=== PATIENT | female | born 1965 | race Caucasian/White ===

== ENCOUNTER → 2016-09-12 | Outpatient (CLI) | payer OTHER ==
[~2016-09-12] MED LIST: /DULO30CA OR; ACET30TAB PO; ALLE25CA OR; AMBI10TA OR; AMIT25TA PO; AMIT25TA2 OR; BUTRANS PATCH EXT; CLAR5CHW OR; DULO20CA OR; DULO20CA PO; FERR325T OR; FLAG500T PO; HYDROCODONE PO; LACT20EL PO; LASI20TA PO; LUNE2TAB OR; LYRI75CA PO; MULTIVIT PO; NUCY200T PO; OXYC-208 PO; OXYC1TAB15 PO; PENI50TA PO; PREG50CA PO; TRAM50TA2 OR; TYLENOL #3 OR; ULTRTA PO; VICO5TAB OR; hydrocodone PO; tylenol
--- NOTE | 2016-09-25 00:54 | ECWPNPC ---
PATIENT NAME: CINDI MARIE : 1965 GENDER: FEMALE VISIT DATE: 09/12/2016 DISCHARGE DATE: 09/12/16 1605 VISIT LOCKED DATE TIME: PHYSICIAN: JOLYNN ALEMAN PHYSICIAN PAGER NO: [phone] RESOURCE: JOLYNN ALEMAN REASON FOR APPOINTMENT 1. W/C BACK HISTORY OF PRESENT ILLNESS HISTORY OF PRESENT ILLNESS: HERE FOR F/U AND MANAGEMENT OF CHRONIC LBP AND BILATERAL LEG PAIN. REPORTS SIGNIFICANT WEIGHT GAIN AND SWELLING AND FEELS ITS RELATED TO LYRICA. SHE STOPPED LYRICA AND LOST 16 POUNDS FIRST WEEK AND SWELLING REDUCED IN LEGS.CONTINUES WITH 2+ LEG SWELLING.STATES PAIN HAS INCREASED DRAMATICALLY SINCE STOPPED LYRICA. RATING PAIN VAS 4/10. PAIN AGGREVATED BY PROLONGED SITTING OR STANDING.THIS PAIN IS RELATED TO WORK INJURY DOI:04-03-2003.RATING PAIN VAS 5/10.PAIN IS LOCATED ACROSS LOW BACK WITH RADIATION INTO THIGHS BILAT.DESCRIBES PAIN CONSTANT ACHING.HAD REVISION OF GASTRIC BYPASS 9 WEEKS AGO.HAD SEVERE INCREASE IN PAIN POST OP WHICH HAS SINCE RESOLVED . PAIN THE PATIENT DESCRIBES THE PAIN... THE PATIENT DESCRIBES THE PAIN... FALL RISK SCREENING: SCREENING :NO FALLS IN THE PAST YEAR CURRENT MEDICATIONS TAKING AMITRIPTYLINE HCL 25 MG TABLET 1-3 ORALLY ONCE A DAY TAKING CLARITIN 10 MG TABLET 1 TABLET ORALLY ONCE A DAY TAKING FUROSEMIDE 40 MG TABLET 1 TABLET ORALLY ONCE A DAY TAKING IRON 28 MG TABLET 1 TABLET ORALLY ONCE A DAY TAKING CYMBALTA 60 MG CAPSULE DELAYED RELEASE PARTICLES 1 CAPSULE ORALLY ONCE A DAY TAKING PERCOCET 7.5-325 MG TABLET 1 ORALLY Q4-6 MDD 5 TAKING NUCYNTA ER 150 MG TABLET EXTENDED RELEASE 12 HOUR 1 TABLET ORALLY EVERY 12 HRS MDD=2 CHRONIC PAIN TAKING OMEPRAZOLE 40 MG CAPSULE DELAYED RELEASE 1 CAP ORALLY ONCE A DAY NOT-TAKING PHENTERMINE HCL 15 MG CAPSULE 1 CAPSULE ORALLY ONCE A DAY NOT-TAKING NUCYNTA ER 150 MG TABLET EXTENDED RELEASE 12 HOUR 1 TABLET ORALLY EVERY 12 HRSMDD2 NOT-TAKING OXYCODONE-ACETAMINOPHEN 7.5-325 MG TABLET 1 ORALLY EVERY 4-6 HR PRNMDD5 NOT-TAKING LYRICA 50MG CAPSULE 1 CAPSULE ORALLY TID MDD3 NOT-TAKING HYDROCODONE-ACETAMINOPHEN 10-325 MG TABLET 1 ORALLY QIDPRN UNKNOWN LYRICA 50 MG CAPSULE 1 CAPSULE ORALLY THREE TIMES A DAY MDD3 UNKNOWN FUROSEMIDE 20 TABLET TAKE 1 TABLET BY MOUTH ONCE DAILY MEDICATION LIST REVIEWED AND RECONCILED WITH THE PATIENT PAST MEDICAL HISTORY HX OF OBESITY DEPRESSION BACK INJURY 2003 ALLERGIES LYRICA: SWELLING: SIDE EFFECTS SOCIAL HISTORY GENERAL: TOBACCO USE ARE YOU A:NONSMOKER LEARNING BARRIERS / SPECIAL NEEDS ORIENTED TO PLAN OF CARE: PATIENT, PAIN MANAGEMENT PATIENT, ORIENTED TO PLAN OF CARE: PATIENT, PAIN MANAGEMENT PATIENT. NEW PATIENT PAIN DIARY TODAY'S VISITNOTES FROM 0-10, WHAT LEVEL IS YOUR PAIN TODAY?0 PAIN CLINIC PFS, CLERGY, PUBLIC HEALTH REFERRALS PFS REFERRAL NEEDED?NO CLERGY REFERRAL NEEDED?NO PUBLIC HEALTH REFERRAL NEEDED?NO WAS THE PROVIDER NOTIFIED OF ANY PERTINENT INFO?NO PFS REFERRAL NEEDED?NO CLERGY REFERRAL NEEDED?NO PUBLIC HEALTH REFERRAL NEEDED?NO WAS THE PROVIDER NOTIFIED OF ANY PERTINENT INFO?NO REVIEW OF SYSTEMS CONSTITUTIONAL: ANY CHANGE IN YOUR MEDICAL CONDITION? NO . CHILLS NO . FEVER NO . INFECTION: DO YOU HAVE NEW INFECTIONS? NO . DO YOU HAVE HISTORY OF MRSA? NO . MUSCULOSKELETAL: ANY NEW PATTERNS OF PAIN OR NUMBNESS? NO . GASTROENTEROLOGY: ANY NEW CHANGE IN BOWEL CONTROL? NO . GENITOURINARY: ANY NEW CHANGE IN BLADDER CONTROL? NO . IS THERE A CHANCE YOU COULD BE ? NO . HEMATOLOGY/LYMPH: DO YOU TAKE ANY BLOOD THINNERS? (FOR EXAMPLE- COUMADIN, PLAVIX, AGGRENOX, PLATEL, PRADAXA, OR XARELTO) NO . WHEN WAS YOUR LAST DOSE? DATE: TIME: . NEUROLOGY: HAVE YOU FALLEN IN THE PAST 6 MONTHS? NO . ANY NEW EXTREMITY NUMBNESS OR WEAKNESS? NO . CARDIOLOGY: DO YOU HAVE A PACEMAKER OR DEFIBRILLATOR? NO . RESPIRATORY: HAVE YOU BEEN SICK IN THE PAST WEEK? NO . FEVER NO . FLU LIKE SYMPTOMS? NO . COUGH NO . INTEGUMENTARY: DO YOU HAVE ANY RASHES OR OPEN SORES? NO . ALLERGIC/IMMUNO: ARE YOU ALLERGIC TO SHELLFISH OR IV DYE? NO . ANY NEW ALLERGIES? NO . PSYCHIATRIC: DO YOU HAVE THOUGHTS OF HURTING YOURSELF OR SOMEONE ELSE? NO . ARE YOU ABUSED, NEGLECTED, OR IN AN UNSAFE ENVIRONMENT? NO . ENDOCRINOLOGY: ARE YOU DIABETIC? NO . OTHER: DO YOU NEED ANY PRESCRIPTIONS? NO . IF YES, PLEASE LIST: ____ . ANY NEW PROBLEMS WITH YOUR MEDICATIONS? NO . WHEN DID YOU LAST EAT? ____ . WHEN DID YOU LAST DRINK? ____ . WHAT DID YOU LAST DRINK? ____ . NAME OF PERSON DRIVING YOU HOME? ____ . DO YOU HAVE ANY OTHER QUESTIONS OR CONCERNS NO . REVIEWED BY: PROVIDER: JOLYNN WOOD . VITAL SIGNS WT 202 LBS, HT 62 1/2, BMI 36.35 INDEX, BP 135/61 MM HG, HR 82 /MIN, RR 16 /MIN, TEMP 97.9 F, OXYGEN SAT % 99, NA INITIALS TL 1516, REVIEWED BY: AM. EXAMINATION GENERAL EXAMINATION: LUNGS:LUNG SOUNDS ARE CLEAR. HEART:HEART RATE REGULAR. MUSCULOSKELETAL:*. MUSCULOSKELETAL:*, MUSCLE STRENGTH TESTING 5/5 BILATERAL, PALPATION: POSITIVE FOR PAIN OVER L/S SPINE. POSITIVE FOR PAIN OVER L/S PARSPINALS. ASSESSMENTS CHRONIC BILATERAL LOW BACK PAIN WITHOUT SCIATICA - M54.5 (PRIMARY) CHRONIC PRESCRIPTION OPIATE USE - Z79.891 TREATMENT CHRONIC BILATERAL LOW BACK PAIN WITHOUT SCIATICA REFILL CYMBALTA CAPSULE DELAYED RELEASE PARTICLES, 60 MG, 1 CAPSULE, ORALLY, ONCE A DAY, 30 DAY(S), 30 CAPSULE, REFILLS 5 REFILL PERCOCET TABLET, 7.5-325 MG, 1, ORALLY, Q4-6 MDD 5, 30 DAY(S), 150, REFILLS 0 REFILL AMITRIPTYLINE HCL TABLET, 25 MG, 1-3, ORALLY, ONCE A DAY, 30 DAY(S), 90, REFILLS 2 REFILL NUCYNTA ER TABLET EXTENDED RELEASE 12 HOUR, 150 MG, 1 TABLET, ORALLY, EVERY 12 HRSMDD2, 30 DAY(S), 60, REFILLS 0 NOTES: ISTOP REGISTRY REVIEWED AND DEMNOSTRATES COMPLLIANCE. BRINGS IN MEDICATIONS WHICH IS APPROPRIATE FOR WHAT WAS DISPENSED. RECENT URINE TOXICOLOGY REVIEWED. NO UNAUTHORIZED MEDICATIONS. NO ILLICIT SUBSTANCES AND PRESCRIBED MEDICATIONS WERE PRESENT. , RISKS AND BENEFITS OF NARCOTIC/OPIOD MEDICATIONS WERE REVIEWED WITH PATIENT - THIS INCLUDES BUT IS NOT LIMITED TO RISK OF DEPENDANCE/DEVELOPMENT OF ADDICTION, MOOD DISTURBANCE AND DEPRESSION, OSTEOPOROSIS, HORMONAL AND LABIDAL CHANGES, RESPIRATORY DEPRESSION AND . PATIENT IS ADVISED NOT TO DRIVE WHILE ON THESE MEDICATIONS.URINE TOX TODAY. PROCEDURE CODES FA211 ESTABILISHED PATIENT [facility] CHARGE FOLLOW UP [address] NEVES ELECTRONICALLY SIGNED BY ISRAEL BOLTON ON 09/24/2016 AT 01:25 PM EST DISCLAIMER : THIS IS A VISIT SUMMARY EXTRACTED FROM THE [employer] CHART. IT IS NOT A COPY OF THE [employer] PROGRESS NOTE. CHRISTAL
== END ==
LOC: M PAIN 15:20
PROVIDERS: ATTEND Nurse Practitioner Family
DX: Z09 Encounter for follow-up examination after completed treatment for conditions other than malignant neoplasm (principal); G89.21 Chronic pain due to trauma; M54.5 Low back pain; E66.9 Obesity, unspecified; Z68.36 Body mass index [BMI] 36.0-36.9, adult; F32.9 Major depressive disorder, single episode, unspecified; Z88.8 Allergy status to other drugs, medicaments and biological substances; Z79.891 Long term (current) use of opiate analgesic; Z79.899 Other long term (current) drug therapy

== ENCOUNTER → 2016-11-02 | Outpatient (REF) | payer OTHER | LOC: M LAB REF 16:36 | PROVIDERS: ATTEND Nurse Practitioner Family | DX: D64.9 Anemia, unspecified (principal) ==

== ENCOUNTER → 2016-12-13 | Outpatient (CLI) | payer OTHER ==
--- NOTE | 2016-12-26 00:20 | ECWPNPC ---
PATIENT NAME: CINDI MARIE : 1965 GENDER: FEMALE VISIT DATE: 12/13/2016 DISCHARGE DATE: 12/13/16 1655 VISIT LOCKED DATE TIME: PHYSICIAN: LEOPOLDO NEVES PHYSICIAN PAGER NO: [phone] RESOURCE: LEOPOLDO NEVES REASON FOR APPOINTMENT 1. LOW BACK PAIN HISTORY OF PRESENT ILLNESS HISTORY OF PRESENT ILLNESS: PAIN THE PATIENT DESCRIBES THE PAIN... 51 YEAR OLD FEMALE PATIENT WITH HISTORY OF CHRONIC LOW BACK PAIN. PATIENT DESCRIBES THAT PAIN SHARP, TENDER, SORE, AND HAVING IT ALL THE TIME WITH A PAIN SCORE OF 5/10. PATIENT WAS HURT IN A WORK RELATED INJURY WHILE WORKING AT [employer] ON 04/03/2003. PATIENT IS CURRENTLY USING NUCYNTA, CYMBALTA, OXYCODONE, AND AMITRIPTYLINE AND THE PATIENT REPORTS THAT THE MEDICATIONS KEEP HER MOBILE AND FUNCTIONAL. AT THIS TIME THE PATIENT STATES THAT SHE DOES NOT GET LONG LASTING RELIEF FROM INJECTIONS. MEDICATION MANAGEMENT AND REST AID IN PAIN RELIEF. PATIENT DENIES UNEXPLAINABLE WEIGHT LOSS, FEVER, CHILLS, NEW CHANGES ON HER URINARY OR BOWEL CONTROL. FALL RISK SCREENING: SCREENING :NO FALLS IN THE PAST YEAR CURRENT MEDICATIONS TAKING CLARITIN 10 MG TABLET 1 TABLET ORALLY ONCE A DAY TAKING FUROSEMIDE 40 MG TABLET 1 TABLET ORALLY ONCE A DAY TAKING IRON 28 MG TABLET 1 TABLET ORALLY ONCE A DAY TAKING OMEPRAZOLE 40 MG CAPSULE DELAYED RELEASE 1 CAP ORALLY ONCE A DAY TAKING CYMBALTA 60 MG CAPSULE DELAYED RELEASE PARTICLES 1 CAPSULE ORALLY ONCE A DAY TAKING AMITRIPTYLINE HCL 25 MG TABLET 1-3 ORALLY ONCE A DAY TAKING OXYCODONE-ACETAMINOPHEN 7.5-325 MG TABLET 1 ORALLY EVERY 4-6 HR PRNMDD5 TAKING NUCYNTA ER 150 MG TABLET EXTENDED RELEASE 12 HOUR 1 TABLET ORALLY EVERY 12 HRSMDD2 TAKING PATITO-E 400 MG TABLET 600MG ORALLY DAILY TAKING MAGNESIUM 100 MG TABLET 2 TABLETS WITH A MEAL ORALLY ONCE A DAY TAKING VITAMIN C 250 MG TABLET 4 TABLET ORALLY ONCE A DAY TAKING PRE-BINH 2 TABS DAILY TAKING CALCIUM 500 + D 500-125 MG-UNIT TABLET 2 TABLET WITH FOOD ORALLY ONCE A DAY TAKING VITAMIN B-12 1000 MCG TABLET SUBLINGUAL 1 TABLET UNDER THE TONGUE AND ALLOW TO DISSOLVE SUBLINGUAL ONCE A DAY NOT-TAKING PHENTERMINE HCL 15 MG CAPSULE 1 CAPSULE ORALLY ONCE A DAY NOT-TAKING LYRICA 50MG CAPSULE 1 CAPSULE ORALLY TID MDD3 NOT-TAKING HYDROCODONE-ACETAMINOPHEN 10-325 MG TABLET 1 ORALLY QIDPRN DISCONTINUED PERCOCET 7.5-325 MG TABLET 1 ORALLY Q4-6 HRS PRN MDD 5 UNKNOWN LYRICA 50 MG CAPSULE 1 CAPSULE ORALLY THREE TIMES A DAY MDD3 UNKNOWN FUROSEMIDE 20 TABLET TAKE 1 TABLET BY MOUTH ONCE DAILY MEDICATION LIST REVIEWED AND RECONCILED WITH THE PATIENT PAST MEDICAL HISTORY HX OF OBESITY DEPRESSION BACK INJURY 2003 ALLERGIES LYRICA: SWELLING: SIDE EFFECTS SURGICAL HISTORY GASTRIC BYPASS APPENDECTOMY LT KNEE X2 GASTRIC BYPASS REVISION 07/2016 FAMILY HISTORY NO FAMILY HISTORY DOCUMENTED. SOCIAL HISTORY GENERAL: PAIN CLINIC PFS, CLERGY, PUBLIC HEALTH REFERRALS CLERGY REFERRAL NEEDED?NO WAS THE PROVIDER NOTIFIED OF ANY PERTINENT INFO?NO PFS REFERRAL NEEDED?NO PUBLIC HEALTH REFERRAL NEEDED?NO PATIENT: ____. HOSPITALIZATION/MAJOR DIAGNOSTIC PROCEDURE NO HOSPITALIZATION HISTORY. REVIEW OF SYSTEMS CONSTITUTIONAL: ANY CHANGE IN YOUR MEDICAL CONDITION? NO . CHILLS NO . FEVER NO . INFECTION: DO YOU HAVE NEW INFECTIONS? NO . DO YOU HAVE HISTORY OF MRSA? NO . MUSCULOSKELETAL: ANY NEW PATTERNS OF PAIN OR NUMBNESS? NO . GASTROENTEROLOGY: ANY NEW CHANGE IN BOWEL CONTROL? NO . GENITOURINARY: ANY NEW CHANGE IN BLADDER CONTROL? NO . IS THERE A CHANCE YOU COULD BE ? NO . HEMATOLOGY/LYMPH: DO YOU TAKE ANY BLOOD THINNERS? (FOR EXAMPLE- COUMADIN, PLAVIX, AGGRENOX, PLATEL, PRADAXA, OR XARELTO) NO . WHEN WAS YOUR LAST DOSE? DATE: TIME: . NEUROLOGY: HAVE YOU FALLEN IN THE PAST 6 MONTHS? NO . ANY NEW EXTREMITY NUMBNESS OR WEAKNESS? NO . CARDIOLOGY: DO YOU HAVE A PACEMAKER OR DEFIBRILLATOR? NO . RESPIRATORY: HAVE YOU BEEN SICK IN THE PAST WEEK? NO . FEVER NO . FLU LIKE SYMPTOMS? NO . COUGH NO . INTEGUMENTARY: DO YOU HAVE ANY RASHES OR OPEN SORES? NO . ALLERGIC/IMMUNO: ARE YOU ALLERGIC TO SHELLFISH OR IV DYE? NO . ANY NEW ALLERGIES? NO . PSYCHIATRIC: DO YOU HAVE THOUGHTS OF HURTING YOURSELF OR SOMEONE ELSE? NO . ARE YOU ABUSED, NEGLECTED, OR IN AN UNSAFE ENVIRONMENT? NO . ENDOCRINOLOGY: ARE YOU DIABETIC? NO . OTHER: DO YOU NEED ANY PRESCRIPTIONS? YES NUCYNTA, OXYCODONE-ACETAMINOPHEN . IF YES, PLEASE LIST: ____ . ANY NEW PROBLEMS WITH YOUR MEDICATIONS? NO . WHEN DID YOU LAST EAT? ____ . WHEN DID YOU LAST DRINK? ____ . WHAT DID YOU LAST DRINK? ____ . NAME OF PERSON DRIVING YOU HOME? ____ . DO YOU HAVE ANY OTHER QUESTIONS OR CONCERNS NO . REVIEWED BY: PROVIDER: LEOPOLDO NEVES MD . VITAL SIGNS WT 209.4 LBS, HT 62 1/2, BMI 37.69 INDEX, BP 134/61 MM HG, HR 90 /MIN, RR 18 /MIN, TEMP 97.0 F, OXYGEN SAT % 96, NA INITIALS HS, REVIEWED BY: MLF. EXAMINATION : PATIENT IS ALERT O X 3 AND COOPERATIVE. TENDERNESS IN THE LOWER BACK AND PARASPINAL MUSCLE GROUP. ANTALGIC GAIT. MRI OF THE LUMBAR SPINE DONE ON 05/07/2012 SHOWS MUSCLE ANNULAR BULGES. ASSESSMENTS CHRONIC BILATERAL LOW BACK PAIN WITHOUT SCIATICA - M54.5 (PRIMARY) TREATMENT CHRONIC BILATERAL LOW BACK PAIN WITHOUT SCIATICA REFILL CYMBALTA CAPSULE DELAYED RELEASE PARTICLES, 60 MG, 1 CAPSULE, ORALLY, ONCE A DAY FOR PAIN, 30 DAY(S), 30, REFILLS 2 REFILL AMITRIPTYLINE HCL TABLET, 25 MG, 2, ORALLY, ONCE A DAY FOR PAIN MDD2, 30 DAY(S), 60, REFILLS 2 REFILL NUCYNTA ER TABLET EXTENDED RELEASE 12 HOUR, 150 MG, 1 TABLET (CODE D FOR CHRONIC PAIN), ORALLY FOR PAIN, EVERY 12 HRSMDD2, 90 DAYS, 180, REFILLS 0 NOTES: WE DISCUSSED SEVERAL ISSUES WITH MRS. MARIE'S PAIN MANAGEMENT CASE. AT THIS TIME THE PATIENT WILL CONTINUE WITH THE SAME MEDICATION REGIME BEFORE. PATIENT WILL USE NUCYNTA AND OXYCODONE FOR THE SOMATIC PAIN AND AMITRIPTYLINE AND CYMBALTA FOR THE NEUROPATHIC PAIN. PATIENT DENIES ABUSE OF ANY MEDICATION, DENIES USE OF ILLEGAL SUBSTANCES AND STATES THAT SHE IS ONLY USING THE MEDICATION FOR PAIN MANAGEMENT. URINE TOXICOLOGY REPORT DONE ON 09/12/16 SHOWS CONSISTENT RESULTS WITH THE PATIENT'S MEDICATION LIST. PATIENT EXPRESSED THAT EVENTUALLY SHE WOULD LIKE TO DECREASE THE AMOUNT OF MEDICATION SHE IS USING. PATIENT DOES NOT WANT INTERVENTIONS AT THIS TIME AND WOULD LIKE TO CONTINUE WITH MEDICATION MANAGEMENT. PATIENT WILL RETURN TO THE CLINIC IN 4 WEEKS TO FURTHER DISCUSS HER CASE. INSTRUCTIONS WERE GIVEN, QUESTIONS WERE ANSWERED, PATIENT REPORTS UNDERSTANDING AND AGREES WITH THE PLAN. I, RAMAN MEDINA, DOCUMENTED THE ABOVE INFORMATION ACTING A SCRIBE FOR DR. NEVES. I HAVE REVIEWED THE ABOVE DOCUMENT, WRITTEN BY RAMAN OCASIO AND I VERIFY THAT IT IS ACCURATE. OTHERS REFILL OXYCODONE-ACETAMINOPHEN TABLET, 7.5-325 MG, 1, ORALLY, EVERY 4-6 HR PRNMDD5, 30 DAY(S), 150, REFILLS 0 PROCEDURES PN WORKMANS' COMP OPINION IN YOUR OPINION, WAS THE INCIDENT THAT THE PATIENT DESCRIBED THE COMPETENT MEDICAL CAUSE OF THIS INJURY/ILLNESS? YES ARE THE PATIENT'S COMPLAINTS CONSISTENT WITH HIS/HER HISTORY OF THE INJURY/ILLNESS? YES IS THE PATIENT'S HISTORY OF THE INJURY/ILLNESS CONSISTENT WITH YOUR OBJECTIVE FINDING? YES WHAT IS THE PERCENTAGE OF TEMPORARY IMPAIRMENT? MODERATE TO MARKED = 66.7% IS THE PATIENT WORKING? NO DOCTOR ON SITE: LEOPOLDO ESPINOZA MD PROCEDURE CODES FA211 ESTABILISHED PATIENT [facility] FACILITY CHARGE G8427 DOC MEDS VERIFIED W/PT OR RE G8730 PAIN ASSESS POS TOOL F/U PLAN DOC DISPOSITION & COMMUNICATION FOLLOW UP 4 WEEKS ELECTRONICALLY SIGNED BY LEOPOLDO NEVES MD ON 12/25/2016 AT 08:31 PM EDT DISCLAIMER : THIS IS A VISIT SUMMARY EXTRACTED FROM THE [employer] CHART. IT IS NOT A COPY OF THE [employer] PROGRESS NOTE. CHRISTAL
== END ==
LOC: M PAIN 15:40
PROVIDERS: ATTEND Anesthesiology
DX: G89.29 Other chronic pain (principal); M54.5 Low back pain; F32.9 Major depressive disorder, single episode, unspecified; Z98.84 Bariatric surgery status; Z79.891 Long term (current) use of opiate analgesic; Z79.899 Other long term (current) drug therapy; Z88.8 Allergy status to other drugs, medicaments and biological substances

== ENCOUNTER → 2017-01-18 | Outpatient (CLI) | payer OTHER ==
--- NOTE | 2017-01-26 23:49 | ECWPNPC ---
PATIENT NAME: CINDI MARIE : 1965 GENDER: FEMALE VISIT DATE: 01/18/2017 DISCHARGE DATE: 01/18/17 1617 VISIT LOCKED DATE TIME: PHYSICIAN: LEOPOLDO NEVES PHYSICIAN PAGER NO: [phone] RESOURCE: LEOPOLDO NEVES REASON FOR APPOINTMENT 1. W/C LOW BACK PAIN HISTORY OF PRESENT ILLNESS HISTORY OF PRESENT ILLNESS: PAIN THE PATIENT DESCRIBES THE PAIN... 51 YEAR OLD FEMALE PATIENT WITH HISTORY OF CHRONIC LOW BACK PAIN. PATIENT DESCRIBES THAT PAIN SHARP, TENDER, SORE, AND HAVING IT ALL THE TIME WITH A PAIN SCORE OF 5/10. PATIENT WAS HURT IN A WORK RELATED INJURY WHILE WORKING AT [employer] ON 04/03/2003. PATIENT IS CURRENTLY USING NUCYNTA, CYMBALTA, OXYCODONE, AND AMITRIPTYLINE AND THE PATIENT REPORTS THAT THE MEDICATIONS KEEP HER MOBILE AND FUNCTIONAL. PATIENT REPORTS THE PAIN FLUCTUATING A LOT SINCE THE LAST VISIT AND HAS HAD TO MISS WORK DUE TO THE PAIN. MEDICATION MANAGEMENT AND REST AID IN PAIN RELIEF. PATIENT DENIES UNEXPLAINABLE WEIGHT LOSS, FEVER, CHILLS, NEW CHANGES ON HER URINARY OR BOWEL CONTROL. FALL RISK SCREENING: SCREENING :NO FALLS IN THE PAST YEAR CURRENT MEDICATIONS TAKING CYMBALTA 60 MG CAPSULE DELAYED RELEASE PARTICLES 1 CAPSULE ORALLY ONCE A DAY FOR PAIN TAKING AMITRIPTYLINE HCL 25 MG TABLET 2 ORALLY ONCE A DAY FOR PAIN MDD2 TAKING NUCYNTA ER 150 MG TABLET EXTENDED RELEASE 12 HOUR 1 TABLET (CODE D FOR CHRONIC PAIN) ORALLY FOR PAIN EVERY 12 HRSMDD2 TAKING OXYCODONE-ACETAMINOPHEN 7.5-325 MG TABLET 1 ORALLY EVERY 4-6 HR PRNMDD5 TAKING CLARITIN 10 MG TABLET 1 TABLET ORALLY ONCE A DAY TAKING FUROSEMIDE 40 MG TABLET 1 TABLET ORALLY ONCE A DAY TAKING IRON 28 MG TABLET 1 TABLET ORALLY ONCE A DAY TAKING OMEPRAZOLE 40 MG CAPSULE DELAYED RELEASE 1 CAP ORALLY ONCE A DAY TAKING PATITO-E 400 MG TABLET 600MG ORALLY DAILY TAKING MAGNESIUM 100 MG TABLET 2 TABLETS WITH A MEAL ORALLY ONCE A DAY TAKING VITAMIN C 250 MG TABLET 4 TABLET ORALLY ONCE A DAY TAKING PRE-BINH 2 TABS DAILY TAKING CALCIUM 500 + D 500-125 MG-UNIT TABLET 2 TABLET WITH FOOD ORALLY ONCE A DAY TAKING VITAMIN B-12 1000 MCG TABLET SUBLINGUAL 1 TABLET UNDER THE TONGUE AND ALLOW TO DISSOLVE SUBLINGUAL ONCE A DAY DISCONTINUED PHENTERMINE HCL 15 MG CAPSULE 1 CAPSULE ORALLY ONCE A DAY DISCONTINUED LYRICA 50MG CAPSULE 1 CAPSULE ORALLY TID MDD3 DISCONTINUED HYDROCODONE-ACETAMINOPHEN 10-325 MG TABLET 1 ORALLY QIDPRN DISCONTINUED LYRICA 50 MG CAPSULE 1 CAPSULE ORALLY THREE TIMES A DAY MDD3 DISCONTINUED FUROSEMIDE 20 TABLET TAKE 1 TABLET BY MOUTH ONCE DAILY MEDICATION LIST REVIEWED AND RECONCILED WITH THE PATIENT PAST MEDICAL HISTORY HX OF OBESITY DEPRESSION BACK INJURY 2003 ALLERGIES LYRICA: SWELLING: SIDE EFFECTS SURGICAL HISTORY GASTRIC BYPASS APPENDECTOMY LT KNEE X2 GASTRIC BYPASS REVISION 07/2016 FAMILY HISTORY NO FAMILY HISTORY DOCUMENTED. SOCIAL HISTORY GENERAL: PAIN CLINIC PFS, CLERGY, PUBLIC HEALTH REFERRALS CLERGY REFERRAL NEEDED?NO WAS THE PROVIDER NOTIFIED OF ANY PERTINENT INFO?NO PFS REFERRAL NEEDED?NO PUBLIC HEALTH REFERRAL NEEDED?NO PATIENT: ____. HOSPITALIZATION/MAJOR DIAGNOSTIC PROCEDURE NO HOSPITALIZATION HISTORY. REVIEW OF SYSTEMS CONSTITUTIONAL: ANY CHANGE IN YOUR MEDICAL CONDITION? NO . CHILLS NO . FEVER NO . INFECTION: DO YOU HAVE NEW INFECTIONS? NO . DO YOU HAVE HISTORY OF MRSA? NO . MUSCULOSKELETAL: ANY NEW PATTERNS OF PAIN OR NUMBNESS? NO . GASTROENTEROLOGY: ANY NEW CHANGE IN BOWEL CONTROL? NO . GENITOURINARY: ANY NEW CHANGE IN BLADDER CONTROL? NO . IS THERE A CHANCE YOU COULD BE ? NO . HEMATOLOGY/LYMPH: DO YOU TAKE ANY BLOOD THINNERS? (FOR EXAMPLE- COUMADIN, PLAVIX, AGGRENOX, PLATEL, PRADAXA, OR XARELTO) NO . WHEN WAS YOUR LAST DOSE? DATE: TIME: . NEUROLOGY: HAVE YOU FALLEN IN THE PAST 6 MONTHS? NO . ANY NEW EXTREMITY NUMBNESS OR WEAKNESS? NO . CARDIOLOGY: DO YOU HAVE A PACEMAKER OR DEFIBRILLATOR? NO . RESPIRATORY: HAVE YOU BEEN SICK IN THE PAST WEEK? NO . FEVER NO . FLU LIKE SYMPTOMS? NO . COUGH NO . INTEGUMENTARY: DO YOU HAVE ANY RASHES OR OPEN SORES? NO . ALLERGIC/IMMUNO: ARE YOU ALLERGIC TO SHELLFISH OR IV DYE? NO . ANY NEW ALLERGIES? NO . PSYCHIATRIC: DO YOU HAVE THOUGHTS OF HURTING YOURSELF OR SOMEONE ELSE? NO . ARE YOU ABUSED, NEGLECTED, OR IN AN UNSAFE ENVIRONMENT? NO . ENDOCRINOLOGY: ARE YOU DIABETIC? NO . OTHER: DO YOU NEED ANY PRESCRIPTIONS? YES . IF YES, PLEASE LIST: OXYCODONE 7.5MG . ANY NEW PROBLEMS WITH YOUR MEDICATIONS? NO . WHEN DID YOU LAST EAT? ____ . WHEN DID YOU LAST DRINK? ____ . WHAT DID YOU LAST DRINK? ____ . NAME OF PERSON DRIVING YOU HOME? ____ . DO YOU HAVE ANY OTHER QUESTIONS OR CONCERNS YES, ANKLES ARE STILL SWELLING A LOT. . REVIEWED BY: PROVIDER: LEOPOLDO NEVES MD . VITAL SIGNS WT 208.2 LBS, HT 62 1/2, BMI 37.47 INDEX, BP 143/60 MM HG, HR 89 /MIN, RR 16 /MIN, TEMP 98.4 F, OXYGEN SAT % 97%, NA INITIALS TL 1505, REVIEWED BY: CM. EXAMINATION : PATIENT IS ALERT O X 3 AND COOPERATIVE. TENDERNESS IN THE LOWER BACK AND PARASPINAL MUSCLE GROUP. ANTALGIC GAIT. MRI OF THE LUMBAR SPINE DONE ON 05/07/2012 SHOWS MUSCLE ANNULAR BULGES AND FACET HYPERTROPHY. PATIENT HAS DIFFICULTIES STRAIGHTENING LEGS WHILE IN THE SUPINE POSITION. ASSESSMENTS CHRONIC BILATERAL LOW BACK PAIN WITHOUT SCIATICA - M54.5 (PRIMARY) TREATMENT CHRONIC BILATERAL LOW BACK PAIN WITHOUT SCIATICA REFILL NUCYNTA ER TABLET EXTENDED RELEASE 12 HOUR, 150 MG, 1 TABLET (CODE D FOR CHRONIC PAIN), ORALLY FOR PAIN, EVERY 12 HRSMDD2, 90 DAYS, 180, REFILLS 0 REFILL AMITRIPTYLINE HCL TABLET, 25 MG, 2, ORALLY, ONCE A DAY FOR PAIN MDD2, 30 DAY(S), 60, REFILLS 2 REFILL CYMBALTA CAPSULE DELAYED RELEASE PARTICLES, 60 MG, 1 CAPSULE, ORALLY, ONCE A DAY FOR PAIN, 30 DAY(S), 30, REFILLS 2 NOTES: FACET JOINT INJECTION MATERIAL WAS PRINTED. CLINICAL NOTES: WE DISCUSSED SEVERAL ISSUES WITH MRS. MARIE'S PAIN MANAGEMENT CASE. AT THIS TIME I WOULD LIKE THE PATIENT TO CONTINUE USING THE NUCYNTA AND OXYCODONE FOR THE SOMATIC PAIN, CYMBALTA FOR THE NEUROPATHIC PAIN, AND THE AMITRIPTYLINE FOR THE NEUROPATHIC PAIN. I WOULD ALSO LIKE THE PATIENT TO START USING GABAPENTIN 300 MG AT NIGHT AND TRY TO NOT USE THE NUCYNTA. PATIENT WAS ADVISED TO STOP THE MEDICATION IF SHE HAS ANY ADVERSE SIDE EFFECTS. PATIENT DENIES ABUSE TO ANY MEDICATION, DENIES USE OF ILLEGAL SUBSTANCES, AND STATES THAT SHE IS ONLY USING THE MEDICATION FOR PAIN MANAGEMENT. URINE TOXICOLOGY REPORT DONE ON 09/12/16 SHOWS CONSISTENT RESULTS WIT THE PATIENT MEDICATION LIST. WE DISCUSSED SEVERAL INTERVENTIONS THAT MAY AID THE PATIENT. PATIENT REPORTS THAT INTERVENTIONS HAVE NOT WORKED, DUE TO THE LAST INJECTION BEING OVER A YEAR AGO I WOULD LIKE TO MOVE FORWARD WITH A LUMBAR FACET BLOCK. WE DISCUSSED T HE RISKS, BENENFITS, AND ALTNERATIVES OF THE INJECTION AND THE PATIENT WOULD LIKE TO PROCEED AT THIS TIME. INSTRUCTIONS WERE GIVEN, QUESTIONS WERE ANSWERED, PATIENT REPORTS UNDERSTANDING AND AGREES WITH THE PLAN. I, RAMAN MEDINA, DOCUMENTED THE ABOVE INFORMATION ACTING A SCRIBE FOR DR. NEVES. I HAVE REVIEWED THE ABOVE DOCUMENT, WRITTEN BY RAMAN OCASIO AND I VERIFY THAT IT IS ACCURATE. OTHERS REFILL OXYCODONE-ACETAMINOPHEN TABLET, 7.5-325 MG, 1, ORALLY, EVERY 4-6 HR PRNMDD5, 30 DAY(S), 150, REFILLS 0 START GABAPENTIN CAPSULE, 300 MG, 1 CAPSULE, ORALLY, BEFORE BEDTIME FOR PAIN, 30 DAY(S), 30, REFILLS 2 PROCEDURE CODES FA211 ESTABILISHED PATIENT [facility] FACILITY CHARGE G8427 DOC MEDS VERIFIED W/PT OR RE G4430 PAIN ASSESS POS TOOL F/U PLAN DOC DISPOSITION & COMMUNICATION FOLLOW UP LFBT AFTER APPROVAL ELECTRONICALLY SIGNED BY LEOPOLDO NEVES MD ON 01/26/2017 AT 07:12 PM EDT DISCLAIMER : THIS IS A VISIT SUMMARY EXTRACTED FROM THE [employer] CHART. IT IS NOT A COPY OF THE [employer] PROGRESS NOTE. YONATAND
== END | disposition home or self-care (01) ==
LOC: M PAIN 15:00
PROVIDERS: ATTEND Anesthesiology
DX: G89.29 Other chronic pain (principal); M54.5 Low back pain; F33.9 Major depressive disorder, recurrent, unspecified; Z98.84 Bariatric surgery status; Z79.899 Other long term (current) drug therapy; Z88.8 Allergy status to other drugs, medicaments and biological substances

== ENCOUNTER → 2017-02-22 | Outpatient (CLI) | payer OTHER ==
--- NOTE | 2017-03-02 00:30 | ECWPNPC ---
PATIENT NAME: CINDI MARIE : 1965 GENDER: FEMALE VISIT DATE: 02/22/2017 DISCHARGE DATE: 02/22/17 1641 VISIT LOCKED DATE TIME: PHYSICIAN: LEOPOLDO NEVES PHYSICIAN PAGER NO: [phone] RESOURCE: LEOPOLDO NEVES REASON FOR APPOINTMENT 1. W/C LOW BACK PAIN HISTORY OF PRESENT ILLNESS HISTORY OF PRESENT ILLNESS: PAIN THE PATIENT DESCRIBES THE PAIN... 51 YEAR OLD FEMALE PATIENT WITH HISTORY OF CHRONIC LOW BACK PAIN. PATIENT DESCRIBES THAT PAIN SHARP, TENDER, SORE, AND HAVING IT ALL THE TIME WITH A PAIN SCORE OF 5/10. PATIENT WAS HURT IN A WORK RELATED INJURY WHILE WORKING AT [employer] ON 04/03/2003. PATIENT IS CURRENTLY USING NUCYNTA, CYMBALTA, OXYCODONE, AND AMITRIPTYLINE AND THE PATIENT REPORTS THAT THE MEDICATIONS KEEP HER MOBILE AND FUNCTIONAL. PATIENT REPORTS HAVE MORE BACK SPASMS RECENTLY AND IS UNSURE WHY. MEDICATION MANAGEMENT AND REST AID IN PAIN RELIEF. PATIENT DENIES UNEXPLAINABLE WEIGHT LOSS, FEVER, CHILLS, NEW CHANGES ON HER URINARY OR BOWEL CONTROL. FALL RISK SCREENING: SCREENING :NO FALLS IN THE PAST YEAR CURRENT MEDICATIONS TAKING GABAPENTIN 300 MG CAPSULE 1 CAPSULE ORALLY BEFORE BEDTIME FOR PAIN TAKING NUCYNTA ER 150 MG TABLET EXTENDED RELEASE 12 HOUR 1 TABLET (CODE D FOR CHRONIC PAIN) ORALLY FOR PAIN EVERY 12 HRSMDD2 TAKING AMITRIPTYLINE HCL 25 MG TABLET 2 ORALLY ONCE A DAY FOR PAIN MDD2 TAKING CYMBALTA 60 MG CAPSULE DELAYED RELEASE PARTICLES 1 CAPSULE ORALLY ONCE A DAY FOR PAIN TAKING CLARITIN 10 MG TABLET 1 TABLET ORALLY ONCE A DAY TAKING FUROSEMIDE 40 MG TABLET 1 TABLET ORALLY ONCE A DAY TAKING IRON 28 MG TABLET 1 TABLET ORALLY ONCE A DAY TAKING OMEPRAZOLE 40 MG CAPSULE DELAYED RELEASE 1 CAP ORALLY ONCE A DAY TAKING PATITO-E 400 MG TABLET 600MG ORALLY DAILY TAKING MAGNESIUM 100 MG TABLET 2 TABLETS WITH A MEAL ORALLY ONCE A DAY TAKING VITAMIN C 250 MG TABLET 4 TABLET ORALLY ONCE A DAY TAKING PRE- 2 TABS DAILY TAKING CALCIUM 500 + D 500-125 MG-UNIT TABLET 2 TABLET WITH FOOD ORALLY ONCE A DAY TAKING VITAMIN B-12 1000 MCG TABLET SUBLINGUAL 1 TABLET UNDER THE TONGUE AND ALLOW TO DISSOLVE SUBLINGUAL ONCE A DAY TAKING CYCLOBENZAPRINE HCL 10 MG TABLET 1 TABLET NEEDED ORALLY THREE TIMES A DAY FOR SPASMS AND PAIN MDD3 TAKING OXYCODONE-ACETAMINOPHEN 7.5-325 MG TABLET 1 ORALLY EVERY 4-6 HR PRNMDD5 PAST MEDICAL HISTORY HX OF OBESITY DEPRESSION BACK INJURY 2003 ALLERGIES LYRICA: SWELLING: SIDE EFFECTS REVIEW OF SYSTEMS REVIEWED BY: PROVIDER: . CONSTITUTIONAL: ANY CHANGE IN YOUR MEDICAL CONDITION? NO . CHILLS NO . FEVER NO . INFECTION: DO YOU HAVE NEW INFECTIONS? NO . DO YOU HAVE HISTORY OF MRSA? NO . MUSCULOSKELETAL: ANY NEW PATTERNS OF PAIN OR NUMBNESS? NO . GASTROENTEROLOGY: ANY NEW CHANGE IN BOWEL CONTROL? NO . GENITOURINARY: ANY NEW CHANGE IN BLADDER CONTROL? NO . IS THERE A CHANCE YOU COULD BE ? NO . HEMATOLOGY/LYMPH: DO YOU TAKE ANY BLOOD THINNERS? (FOR EXAMPLE- COUMADIN, PLAVIX, AGGRENOX, PLATEL, PRADAXA, OR XARELTO) NO . WHEN WAS YOUR LAST DOSE? DATE: TIME: . NEUROLOGY: HAVE YOU FALLEN IN THE PAST 6 MONTHS? NO . ANY NEW EXTREMITY NUMBNESS OR WEAKNESS? NO . CARDIOLOGY: DO YOU HAVE A PACEMAKER OR DEFIBRILLATOR? NO . RESPIRATORY: HAVE YOU BEEN SICK IN THE PAST WEEK? NO . FEVER NO . FLU LIKE SYMPTOMS? NO . COUGH NO . INTEGUMENTARY: DO YOU HAVE ANY RASHES OR OPEN SORES? NO . ALLERGIC/IMMUNO: ARE YOU ALLERGIC TO SHELLFISH OR IV DYE? NO . ANY NEW ALLERGIES? NO . PSYCHIATRIC: DO YOU HAVE THOUGHTS OF HURTING YOURSELF OR SOMEONE ELSE? NO . ARE YOU ABUSED, NEGLECTED, OR IN AN UNSAFE ENVIRONMENT? NO . ENDOCRINOLOGY: ARE YOU DIABETIC? NO . OTHER: DO YOU NEED ANY PRESCRIPTIONS? YES . IF YES, PLEASE LIST: CYCLOBENZAPRINE, OXYCODONE WITH ACETAMINOPHEN . ANY NEW PROBLEMS WITH YOUR MEDICATIONS? NO . WHEN DID YOU LAST EAT? ____ . WHEN DID YOU LAST DRINK? ____ . WHAT DID YOU LAST DRINK? ____ . NAME OF PERSON DRIVING YOU HOME? ____ . DO YOU HAVE ANY OTHER QUESTIONS OR CONCERNS NO . VITAL SIGNS WT 205.0 LBS, HT 62 1/2, BMI 36.89 INDEX, BP 127/65 MM HG, HR 94 /MIN, RR 16 /MIN, TEMP 97.8 F, OXYGEN SAT % 96%, NA INITIALS TL 1511, REVIEWED BY: NL. EXAMINATION : PATIENT IS ALERT O X 3 AND COOPERATIVE. TENDERNESS IN THE LOWER BACK AND PARASPINAL MUSCLE GROUP. ANTALGIC GAIT. MRI OF THE LUMBAR SPINE DONE ON 05/07/2012 SHOWS MUSCLE ANNULAR BULGES AND FACET HYPERTROPHY. PATIENT HAS DIFFICULTIES STRAIGHTENING LEGS WHILE IN THE SUPINE POSITION. ASSESSMENTS CHRONIC BILATERAL LOW BACK PAIN WITHOUT SCIATICA - M54.5 (PRIMARY) TREATMENT CHRONIC BILATERAL LOW BACK PAIN WITHOUT SCIATICA REFILL NUCYNTA ER TABLET EXTENDED RELEASE 12 HOUR, 150 MG, 1 TABLET (CODE D FOR CHRONIC PAIN), ORALLY FOR PAIN, EVERY 12 HRSMDD2, 90 DAYS, 180, REFILLS 0 REFILL AMITRIPTYLINE HCL TABLET, 25 MG, 2, ORALLY, ONCE A DAY FOR PAIN MDD2, 30 DAY(S), 60, REFILLS 2 REFILL CYMBALTA CAPSULE DELAYED RELEASE PARTICLES, 60 MG, 1 CAPSULE, ORALLY, ONCE A DAY FOR PAIN, 30 DAY(S), 30, REFILLS 2 NOTES: WE DISCUSSED SEVERAL ISSUES WITH MRS. MARIE'S PAIN MANAGEMENT CASE. AT THIS TIME I WOULD LIKE THE PATIENT TO CONTINUE USING THE NUCYNTA AND OXYCODONE FOR THE SOMATIC PAIN, CYMBALTA FOR THE NEUROPATHIC PAIN, AND THE AMITRIPTYLINE FOR THE NEUROPATHIC PAIN. PATIENT DENIES ABUSE TO ANY MEDICATION, DENIES USE OF ILLEGAL SUBSTANCES, AND STATES THAT SHE IS ONLY USING THE MEDICATION FOR PAIN MANAGEMENT. URINE TOXICOLOGY REPORT DONE ON 09/12/16 SHOWS CONSISTENT RESULTS WIT THE PATIENT MEDICATION LIST. WE DISCUSSED SEVERAL INTERVENTIONS THAT MAY AID THE PATIENT. I WOULD LIKE TO REQUEST AUTHORIZATION FOR A LUMBAR FACET BLOCK AND BOOK AFTER APPROVAL. WE DISCUSSED THE RISKS, BENENFITS, AND ALTNERATIVES OF THE INJECTION AND THE PATIENT WOULD LIKE TO PROCEED AT THIS TIME. INSTRUCTIONS WERE GIVEN, QUESTIONS WERE ANSWERED, PATIENT REPORTS UNDERSTANDING AND AGREES WITH THE PLAN. I, RAMAN MEDINA, DOCUMENTED THE ABOVE INFORMATION ACTING A SCRIBE FOR DR. NEVES. I HAVE REVIEWED THE ABOVE DOCUMENT, WRITTEN BY RAMAN OCASIO AND I VERIFY THAT IT IS ACCURATE. OTHERS REFILL GABAPENTIN CAPSULE, 300 MG, 1 CAPSULE, ORALLY, BEFORE BEDTIME FOR PAIN, 30 DAY(S), 30, REFILLS 2 REFILL CYCLOBENZAPRINE HCL TABLET, 10 MG, 1 TABLET NEEDED, ORALLY, THREE TIMES A DAY FOR SPASMS AND PAIN MDD3, 7 DAYS, 20, REFILLS 1 REFILL OXYCODONE-ACETAMINOPHEN TABLET, 7.5-325 MG, 1, ORALLY, EVERY 4-6 HR PRNMDD5, 30 DAY(S), 150, REFILLS 0 PROCEDURES PN WORKMANS' COMP OPINION IN YOUR OPINION, WAS THE INCIDENT THAT THE PATIENT DESCRIBED THE COMPETENT MEDICAL CAUSE OF THIS INJURY/ILLNESS? YES ARE THE PATIENT'S COMPLAINTS CONSISTENT WITH HIS/HER HISTORY OF THE INJURY/ILLNESS? YES IS THE PATIENT'S HISTORY OF THE INJURY/ILLNESS CONSISTENT WITH YOUR OBJECTIVE FINDING? YES WHAT IS THE PERCENTAGE OF TEMPORARY IMPAIRMENT? MODERATE TO MARKED = 66.7% IS THE PATIENT WORKING? NO DOCTOR ON SITE: LEOPOLDO ESPINOZA MD PREVENTIVE MEDICINE GAVE INFO ON PREPROCEDURE CARE AND PT EXPRESSED UNDERSTANDING OF THIS. PROCEDURE CODES FA211 ESTABILISHED PATIENT [facility] FACILITY CHARGE G8427 DOC MEDS VERIFIED W/PT OR RE G8730 PAIN ASSESS POS TOOL F/U PLAN DOC DISPOSITION & COMMUNICATION FOLLOW UP LFBT AFTER APPROVAL ELECTRONICALLY SIGNED BY LEOPOLDO NEVES MD ON 03/01/2017 AT 08:29 AM EDT DISCLAIMER : THIS IS A VISIT SUMMARY EXTRACTED FROM THE [employer] CHART. IT IS NOT A COPY OF THE [employer] PROGRESS NOTE. YONATAND
== END ==
LOC: M PAIN 15:00
PROVIDERS: ATTEND Anesthesiology
DX: G89.29 Other chronic pain (principal); M54.5 Low back pain; F32.9 Major depressive disorder, single episode, unspecified; Z88.8 Allergy status to other drugs, medicaments and biological substances; Z79.891 Long term (current) use of opiate analgesic; Z79.899 Other long term (current) drug therapy; E66.9 Obesity, unspecified; Z68.36 Body mass index [BMI] 36.0-36.9, adult

== ENCOUNTER 2017-04-01 16:24 | Inpatient (IN) | payer OTHER ==
[~2017-04-01] VITALS: Ht 154.9 cm; Wt 96.1 kg
[2017-04-01] MEDS ORDERED: NEUR300C PO (16:42)
[2017-04-01 17:38] LABS: BASO # 0.1 K/mm3 (0.0-0.2); BASO % 0.6 % (0.0-1.0); EOS # 0.2 K/mm3 (0.0-0.50); EOS % 1.8 % (0.0-3.0); LARGE UNSTAINED CELL # 0.2 K/mm3 (0.0-0.4); LARGE UNSTAINED CELL % 1.9 % (0.0-4.0); LYMPH # 3.8 K/mm3 (1.5-4.5); LYMPH % 32.8 % (24.0-44.0); MEAN CORPUSCULAR HEMOGLOBIN 27.1 pg (27.0-33.0); MEAN CORPUSCULAR HGB CONC 32.3 g/dl (32.0-36.5); MEAN CORPUSCULAR VOLUME 84.1 fl (80.0-96.0); MONO # 0.6 K/mm3 (0.0-0.8); MONO % 5.7 % (0.0-5.0); NEUTROPHILS # 6.2 K/mm3 (1.8-7.7); NEUTROPHILS % 57.2 % (36.0-66.0); PLATELET COUNT, AUTOMATED 361 k/mm3 (150-450); RED CELL DISTRIBUTION WIDTH 14.2 % (11.5-14.5); WHITE BLOOD COUNT 10.8 K/mm3 (4.0-10.0)
[2017-04-01 17:58] LABS: ALBUMIN 3.7 GM/DL (3.2-5.2); ALBUMIN/GLOBULIN RATIO 1.06 (1.00-1.93); ALKALINE PHOSPHATASE 276 U/L (45-117); ALT/SGPT 90 U/L (12-78); ANION GAP 6 MEQ/L (8-16); AST/SGOT 57 U/L (15-37); BILIRUBIN,DIRECT < 0.1 MG/DL (0.0-0.2); BILIRUBIN,TOTAL 0.2 MG/DL (0.2-1.0); BLOOD UREA NITROGEN 9 MG/DL (7-18); CALCIUM LEVEL 8.7 MG/DL (8.5-10.1); CARBON DIOXIDE LEVEL 29 MEQ/L (21-32); CHLORIDE LEVEL 100 MEQ/L (98-107); CREATININE FOR GFR 0.79 MG/DL (0.55-1.02); GLOMERULAR FILTRATION RATE > 60.0 (>51); GLUCOSE, FASTING 111 MG/DL (70-105); POTASSIUM SERUM 3.9 MEQ/L (3.5-5.1); SODIUM LEVEL 135 MEQ/L (136-145); TOTAL PROTEIN 7.2 GM/DL (6.4-8.2)
[2017-04-01] MEDS ORDERED: GASTROGRAFIN SOLUTION 30ML (Q9963) PO ONE ×2 (18:30→19:00)
--- NOTE | 2017-04-01 18:31 | REP ---
REASON: Cough, dyspnea. COMPARISON: 06/21/2009. There is a minimal right CP angle opacity. The lung nolasco are otherwise clear and unchanged. The heart is not enlarged and the osseous structure is stable and intact. IMPRESSION: Minimal right CP angle opacity possibly reflecting subsegmental atelectatic change. Correlate clinically and obtain followup if necessary. Signed by Marc Del Rio DO 04/01/2017 07:10 P
[2017-04-01] MEDS ORDERED: ONDANSETRON 4MG/2ML VIAL (J2405) IV ONE (18:45)
[2017-04-01] MEDS ORDERED: MORPHINE 4 MG/ML 1ML SYRINGE IV ONE (18:45)
[2017-04-01] MEDS ORDERED: ISOVUE-370 76% 100ML VIAL (Q9967) As Ordered ONE (19:40)
--- NOTE | 2017-04-01 20:40 | REPUSA ---
CT of the abdomen and pelvis with contrast Clinical statement: Pain. Technique: Multiple axial CT images were obtained from the base of the lungs to the floor of the pelv is utilizing 5 mm axial slices After administration of oral and non-ionic intravenous contrast. Nhung nal and sagittal reconstructions were also obtained. Comparison: None. Findings: Chest: The visualized lung bases are clear. Abdomen: The kidneys are normal in size bilaterally. There is no evidence of hydronephrosis or nephro lithiasis.. The liver is enlarged, measuring 26.2 cm in longest diameter. There is diffuse low atten uation throughout the hepatic parenchyma. No focal hepatic masses are seen. The common bile duct is d ilated measuring up to 11 mm. There is mild dilatation of the pancreatic duct as well. No obstructing mass or stone is seen within the common bile duct. The spleen, pancreas, gallbladder and adrenal gla nds are unremarkable. The aorta demonstrates normal caliber and contour. There is no abdominal lympha denopathy or ascites. Pelvis: The bowel is unremarkable, with no obstructive or inflammatory changes. The urinary bladder i s within normal limits. There is no pelvic lymphadenopathy or ascites. There is a solid low attenuati on lesion in the left uterine fundus, measuring 3.5 x 2.6 cm. The other pelvic structures appear unre markable. Bones: There are no suspicious osseous abnormalities seen. Impression: 1. Severe hepatomegaly. Diffuse fatty infiltration of the liver. 2. The gallbladderappears unremarkable. However, there is an extrahepatic biliary and pancreatic duct al dilatation. No discrete evidence of an obstructing stone or mass is identified at this time. ERCP or MRCP Would be helpful if there is continued clinical concern. 3. No obstructive or inflammatory bowel changes. 4. Uterine fundal fibroid.
[2017-04-01] MEDS: OMEPRAZOLE 20 MG CAP PO SCH (21:00)
--- NOTE | 2017-04-01 21:50 | REPUSA ---
Clinical history: Right upper quadrant pain. Findings: The pancreas and liver limited in evaluation because of overlying bowel gas. Diffuse incre ased echogenicity of the liver is seen. The gallbladder contains echogenic non-shadowing material. Th ere is no gallbladder wall thickening. The common bile duct is dilated, measuring 9 mm.. The right ki dney measures 10.1 cm in length and is unremarkable. There is no ascites. Impression: 1. Gallbladder sludge. No evidence of gallstones or acute cholecystitis. 2. Mild extrahepatic Biliary ductal dilatation. There is further clinical concern, MRCP could be pe rformed. 3. Fatty infiltration of the liver.
[2017-04-01] MEDS ORDERED: DULO1CAP3 PO (23:02)
[2017-04-01] MEDS ORDERED: CYCL10TA PO (23:02)
[2017-04-01] MEDS ORDERED: FURO40TA2 PO (23:02)
[2017-04-01] MEDS ORDERED: NUCY150T PO (23:02)
[2017-04-01] MEDS ORDERED: LORA10TA2 PO (23:02)
[2017-04-01] MEDS ORDERED: OMEP20CA3 PO (23:02)
[2017-04-01] MEDS ORDERED: MAALOX 30 ML SUSP *UDC PO PRN (23:45)
[2017-04-01] MEDS ORDERED: ONDANSETRON 4MG/2ML VIAL (J2405) IV PRN (23:45)
[2017-04-01] MEDS ORDERED: MULTIVITAMINS/MINERALS THERAP 1 TAB PO ONE (23:45)
[2017-04-01] MEDS ORDERED: CYCLOBENZAPRINE 10 MG TAB PO PRN (23:45)
[2017-04-01] MEDS: oxyCODONE 5MG TAB PO PRN (23:52)
[2017-04-01 23:59] LABS: INR 0.96
[2017-04-02 00:07] LABS: GAMMA GLUTAMYLTRANSPEPTIDASE 137 U/L (5-55)
[2017-04-02 00:40] VITALS: BP 121/63
[2017-04-02] MEDS: DULoxetine 30 MG CAP (CYMBALTA) PO SCH ×2 (01:09→21:19)
[2017-04-02] MEDS: GABAPENTIN 300 MG CAP PO SCH ×2 (01:10→21:20)
[2017-04-02] MEDS: NS 1,000 ML IV SCH ×3 (01:10→16:25)
[2017-04-02] MEDS: HEPARIN SOD (PORCINE) 5000 UNITS/ML VIAL SC SCH ×3 (01:10→21:19)
[2017-04-02] MEDS: AMITRIPTYLINE 50 MG TAB PO SCH ×2 (01:31→21:20)
[2017-04-02] MEDS: MORPHINE 2 MG/ML 1ML SYRINGE IV PRN ×4 (01:40→21:18)
[2017-04-02 04:00] VITALS: BP 135/62
--- NOTE | 2017-04-02 05:37 | HPE ---
DATE OF ADMISSION: 04/01/2017 PRIMARY CARE PROVIDER: [facility] CHIEF COMPLAINT: Epigastric pain, abdominal bloating. HISTORY OF PRESENT ILLNESS: This is a 51-year-old female patient with underlying medical history of gastric bypass, section, appendectomy, obesity, depression, chronic back pain, fibromyalgia, presented to the hospital with a one-day history of epigastric abdominal pain associated with shortness of breath, radiating to her back, constant, dull sensation, worse with respiration, no relieving factor, associated with bloating worsened with eating, improved with morphine, /10. Denies any fever, chills, nausea, vomiting, diarrhea. No previous episodes. 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 Denies any chest pain, pressure, discomfort, palpitations. In the emergency room, the patient was evaluated. Laboratory shows transaminitis. CT scan and ultrasound urinary bladder have been done. Subsequently patient is admitted. ALLERGIES: BANANA and SHELLFISH. PAST MEDICAL HISTORY: 1. History of obesity. 2. Depression. 3. Back pain. 4. Fibromyalgia. PAST SURGICAL HISTORY: 1. Gastric bypass. 2. section. 3. Appendectomy. 4. Left knee surgery twice. 5. Cataract surgery. 6. Revision of gastric bypass 07/2016. FAMILY HISTORY: Father had myocardial infarction at age 56. Mother with stroke at age 48. SOCIAL HISTORY: The patient never smoke. Drinks caffeine. Denies alcohol drinking. REVIEW OF SYSTEMS: The patient reported epigastric burning pain that is dull, associated with shortness of breath, worsened with eating. Reported poor appetite. All other review of systems negative. HOME MEDICATIONS: - amitriptyline 50 mg by mouth at bedtime - cyclobenzaprine 10 mg by mouth three times a day as needed - duloxetine 60 mg by mouth at bedtime - Lasix 40 mg by mouth daily as needed - gabapentin 300 mg by mouth at bedtime - loratadine 10 mg by mouth daily - Nucynta extended release 150 mg by mouth daily - omeprazole 20 mg by mouth at bedtime - oxycodone/acetaminophen 7.5/325 mg by mouth every four hours as needed PHYSICAL EXAMINATION: VITAL SIGNS: Temperature 97.8, pulse 75, respirations 18, blood pressure 121/63, pulse oximetry 98% on room air. GENERAL: Patient alert and oriented times three in no acute distress. HEENT: Normocephalic, atraumatic. PULMONARY: Bilaterally clear to auscultation. CARDIAC: Regular rate and rhythm. Normal S1, S2. ABDOMEN: Soft. Right upper quadrant tenderness. No rebound, no guarding. Hypoactive bowel sounds. EXTREMITIES: Right lower extremity lymphedema, as per patient has been chronic. Had ultrasound Doppler last year. NEUROLOGIC: No focal deficits. LABORATORY DATA: WBC 10.8, hemoglobin and hematocrit 12.7 over 39.4, platelets 361. Chemistry: Sodium 135, potassium 3.9, chloride 100, bicarbonate 29, BUN 9, creatinine 0.79. Cardiac enzymes negative times two. Lipase negative. TSH 1.35. IMAGING: CT scan of the abdomen shows severe hepatomegaly, diffuse fatty infiltrate of the liver, gallbladder appears unremarkable. Extrahepatic biliary dilatation and pancreatic duct dilatation. No discrete stone or mass detected. EKG sinus rhythm at 65. ASSESSMENT AND PLAN: This is a 51-year-old female patient with underlying medical history of gastric bypass, obesity, depression, back injury, chronic back pain, and fibromyalgia admitted with right upper quadrant abdominal pain, transaminitis, and biliary and pancreatic duct dilatation. 1. Transaminitis with biliary and pancreatic duct diltation. Hepatitis panel. Magnetic resonance cholangiopancreatography (MCRP) was recommended by radiologist. Lipase appreciated. Thyroid stimulating hormone (TSH) appreciated. Consider gastroenterology (GI) consultation. Followup antinuclear antibody test (PAVEL), liver profile. 2. Hypothyroidism. Followup thyroid panel. Continue Synthroid. 3. History of gastric bypass. Continue vitamin supplementation, outpatient followup. 4. Obesity complicating care. 5. Depression. Continue current medication. 6. Chronic back pain. Continue current medication. 7. Deep venous thrombosis (DVT) prophylaxis. Heparin subcutaneous. 8. Diet: Clear liquid diet. DISPOSITION PLANNING: Pending MCRP, clinical improvement.
--- NOTE | 2017-04-02 05:52 | REP ---
Clinical: Right lower extremity pain and swelling . Technique: Cheung scale and color Doppler evaluation using linear high frequency transducer. Findings: Ultrasound examination of the right lower extremity deep venous structures from the common femoral vein to the popliteal vein demonstrates normal compressibility flow and wave patterns in response to respiration and augmentation. There is no evidence for deep venous thrombosis. Impression: No evidence for deep venous thrombosis of the right lower extremity. Signed by Filippo Rojas MD 04/02/2017 05:44 A
[2017-04-02 05:57] LABS: MEAN CORPUSCULAR HEMOGLOBIN 27.3 pg (27.0-33.0); MEAN CORPUSCULAR HGB CONC 32.4 g/dl (32.0-36.5); MEAN CORPUSCULAR VOLUME 84.2 fl (80.0-96.0); RED CELL DISTRIBUTION WIDTH 14.3 % (11.5-14.5)
[2017-04-02 07:23] LABS: ALBUMIN 3.2 GM/DL (3.2-5.2); ALBUMIN/GLOBULIN RATIO 0.91 (1.00-1.93); ALKALINE PHOSPHATASE 235 U/L (45-117); ALT/SGPT 76 U/L (12-78); ANION GAP 8 MEQ/L (8-16); AST/SGOT 56 U/L (15-37); BILIRUBIN,TOTAL 0.3 MG/DL (0.2-1.0); BLOOD UREA NITROGEN 7 MG/DL (7-18); CALCIUM LEVEL 8.6 MG/DL (8.5-10.1); CARBON DIOXIDE LEVEL 27 MEQ/L (21-32); CHLORIDE LEVEL 105 MEQ/L (98-107); CREATININE FOR GFR 0.75 MG/DL (0.55-1.02); GLOMERULAR FILTRATION RATE > 60.0 (>51); GLUCOSE, FASTING 93 MG/DL (70-105); MAGNESIUM LEVEL 2.1 MG/DL (1.8-2.4); POTASSIUM SERUM 3.7 MEQ/L (3.5-5.1); SODIUM LEVEL 140 MEQ/L (136-145); TOTAL PROTEIN 6.7 GM/DL (6.4-8.2)
[2017-04-02] MEDS: oxyCODONE 5MG TAB PO PRN ×3 (07:29→19:02)
[2017-04-02 08:00] VITALS: BP 109/51
[2017-04-02] MEDS ORDERED: LORATADINE 10 MG TAB PO SCH (09:00)
[2017-04-02] MEDS ORDERED: MIRALAX *UNIT DOSE* 17GM PACKET PO PRN (09:00)
[2017-04-02] MEDS ORDERED: MIRALAX *UNIT DOSE* 17GM PACKET PO SCH (09:00)
--- NOTE | 2017-04-02 09:03 | ECGEPIP ---
Stationary ECG Study [facility] - ED Test Date: 2017-04-01 Pat Name: CINDI MARIE Department: Room: - Gender: F Processing Mgr: ODELL : 1965 Requested By: Addie Newell Order Number: [id number] Reading MD: Addie Newell Measurements Intervals [place] Rate: 65 P: 52 FL: 163 QRS: 51 QRSD: 104 T: 32 QT: 398 QTc: 416 Interpretive Statements SINUS RHYTHM POSSIBLE INFERIOR MYOCARDIAL INFARCTION, PROBABLY OLD Electronically Signed On 04-02-2017 9:02:39 EDT by Addie Newell
[2017-04-02] MEDS: SENOKOT S TAB PO SCH ×2 (09:29→21:20)
--- NOTE | 2017-04-02 09:39 | REP ---
MRCP: MRCP exam is accomplished utilizing multiple heavily T2-weighted sequences in the axial and coronal planes. MIP reconstruction images are performed. There is mild to moderate central intrahepatic biliary dilatation. The common bile duct is dilated up to 12 mm maximally. There is a relatively abrupt transition point at the distal end of the common bile duct with what appears to be a stricture at the distal end of the common bile duct at the ampulla of Vater. No filling defect is seen in the common bile duct. There is gallbladder sludge with moderate distention of the gallbladder. There is moderate pancreatic duct dilatation. The pancreatic duct has a maximum diameter of 6 mm in the pancreatic head. IMPRESSION: Moderate distention of the gallbladder containing sludge. Moderate central intrahepatic biliary dilatation. Dilatation of the common bile duct up to 12 mm. Dilatation of the pancreatic duct up to 6 mm. There appears to be a stricture at the distal end of the common bile duct at the ampulla of Vater. Signed by Julien Cheung MD 04/02/2017 03:28 P
[2017-04-02 12:00] VITALS: BP_SYST 125; BP_DIAS 58; BP_DIAS 65
[2017-04-02 16:00] VITALS: BP 137/75
--- NOTE | 2017-04-02 18:37 | IPN ---
DATE: 04/02/2017 Patient seen and examined at the bedside. Chart has been reviewed. This morning, she denies any complaints of nausea, vomiting, still complains of bilateral and epigastric abdominal pain radiating to the back, no diarrhea or constipation, worse when she tries to move, better when she remains in a sitting and supine position immobile. Temperature 97.6, pulse 72, respiratory rate 16, blood pressure 109/51, 97% on room air. Generally, awake, alert, oriented times three, answering questions appropriately. No respiratory distress. No cyanosis. No clubbing. HEENT: Normocephalic, atraumatic. Lungs are clear to auscultation. No wheezing, rales or rhonchi. Heart: S1, S2, sinus rhythm. Abdomen is soft, slightly tender epigastric region, right upper quadrant, hypoactive bowel sounds. No rebound or guarding. Extremities: Chronic lymphedema of bilateral lower extremities, right greater than left. LABORATORY DATA: White count 10, hemoglobin 11, hematocrit 35, platelet count 305. Sodium 140, potassium 3.7, chloride 105, bicarbonate 27, BUN 7, creatinine 0.75, glucose of 93, calcium 8.6, magnesium 2.1, total bilirubin 0.2, direct bilirubin 0.1, GGT 137, AST 56, ALT 76, alkaline phosphatase 235, total CK 69, MB fraction 1, relative index 1.44, troponin less than 0.02. BNP of 10.4. Venous Dopplers. Right lower extremity - no deep vein thrombosis (DVT). Magnetic resonance cholangiopancreatography (MRCP): Moderate distention of gallbladder containing sludge. Moderate central and intrahepatic biliary dilatation, dilation common bile duct up to 12 mm, dilation of pancreatic duct up to 6 mm, stricture at the distal end common bile duct at the ampulla of Vater. ASSESSMENT AND PLAN: A 51-year-old female, history of gastric bypass, obesity, depression, back pain, fibromyalgia, section, appendectomy, revision of gastric bypass 07/2016, presents with complaints of epigastric abdominal pain with shortness of breath, radiation to the back for 1 day. Lab work shows transaminitis. The patient is admitted for evaluation of abdominal pain. Current issues are as follows: 1. 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 The patient was kept nothing by mouth (n.p.o.) with intravenous (IV) fluids. Hepatitis serology is pending. Dr. Payton has been consulted for endoscopic retrograde cholangiopancreatography (ERCP). Monitor patient's liver function tests. Hypothyroidism. Continue on Synthroid. History of gastric bypass with revision. Continue vitamin supplementation, outpatient followup. Obesity. Complicating care. Depression. Resume current medication. Chronic back pain. Continue current medication. Deep vein thrombosis (DVT) prophylaxis with subcutaneous heparin. Diet: Currently on clear liquid diet. Defer to Dr. Payton for ERCP and nothing by mouth status for ERCP in the near future. Addendum: Per mint wafer depositor, Dr. Payton, due to gastric bypass history, He will not be able to do ERCP at [facility] and recommends transfer to a higher level of care. [facility] was agreeable to transfer. will contact [facility] . CHRISTAL
--- NOTE | 2017-04-02 19:51 | DSES ---
DATE OF ADMISSION: 04/01/2017 DATE OF DISCHARGE: 04/02/2017 The patient is transferred to [place], [place], for endoscopic retrograde cholangiopancreatography (ERCP) in a post gastric bypass patient for a higher level of care. PRIMARY CARE PHYSICIAN: [facility] SOFTWARE MAINTENANCE ENGINEER IN [place] [employer] A SUEDE CLEANER DURING THIS ADMISSION: Dr. Tyron Payton PRIMARY DISCHARGE DIAGNOSES: 1. 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 2. History of gastric bypass surgery with revision July 2016. 3. History of obesity. 4. Depression. 5. Chronic back pain. 6. Fibromyalgia. DISCHARGE MEDICATIONS: - amitriptyline 50 mg nightly - cyclobenzaprine 10 mg three times a day as needed - duloxetine 60 mg nightly - gabapentin 300 mg nightly - loratadine 10 mg daily - Nucynta 150 mg daily - Prilosec 20 mg nightly - oxycodone/acetaminophen 7.5/325 every 4 hours as needed HOSPITAL COURSE: A 51-year-old female, history of gastric bypass with revision July 2016 at [facility] in [place], section, appendectomy, obesity, depression, chronic back pain and fibromyalgia, presented to the emergency room with a one-day history of epigastric abdominal pain with radiation to her back and complaints of shortness of breath, worse with respiration and movement despite morphine. The patient has had decrease in appetite, anorexia without weight loss, complains of bloating. Denies any fever, chills, diarrhea, nausea or vomiting. The patient was found to have transaminitis. She was afebrile. Exam was remarkable for epigastric, right upper quadrant tenderness without rebound or guarding with hypoactive bowel sounds. CT abdomen and pelvis showed hepatomegaly, diffuse fatty infiltration of the liver, extrahepatic biliary duct dilatation and pancreatic duct dilatation without any discrete stone. EKG was sinus rhythm at 65. Cardiac enzymes were negative times two. Lipase level was negative. Magnetic resonance cholangiopancreatography (MRCP) showed a stricture at the ampulla of Vater. Dr. Payton, labor operator, was consulted to review the MRCP and recommended transfer to [facility] due to complication of prior gastric bypass surgery with revision in July 2016. The patient is considered high risk at [facility] with recommendations to transfer to a higher level of care. Further workup included ultrasound of the gallbladder, which showed gallbladder sludging with no evidence of gallstones or acute cholecystitis. Mild extrahepatic biliary ductal dilatation and fatty infiltration of the liver. The patient's liver function test showed no elevation of the bilirubin. With nothing by mouth (n.p.o.) status and IV fluids, the patient's pain subsided with rest; however, she continues to have pain with ambulation and with increased respiration. LABS ON DISCHARGE: White count 10, hemoglobin 11.6, hematocrit 35.6, platelet count is 305. Sodium 140, potassium 3.7, chloride 105, bicarbonate 27, BUN 7, creatinine 0.75, glucose of 93, calcium 8.6, magnesium 2.1. Total bilirubin 0.3, direct bilirubin less than 0.1. GGT 137, AST 56, ALT 76, alkaline phosphatase 235, total CK 69, MB fraction 1, troponin less than 0.02, BNP of 10.4, total protein of 6.7. IMAGING STUDIES: MRCP: Stricture of the ampulla of Vater, moderate central intrahepatic biliary dilatation, dilation of the common bile duct up to 12 mm, dilation pancreatic duct up to 6 mm. There appears to be stricture at the distal end of the common bile duct at the ampulla of Vater. Moderate distention of the gallbladder containing sludge. Ultrasound of the right lower extremity shows no evidence of deep vein thrombosis (DVT). Chest x-ray, 04/01/2017: Minimal right costophrenic angle opacity reflecting subsegmental atelectasis, correlate clinically, obtain followup if necessary. TIME SPENT ON DISCHARGE: 45 minutes. Copy To: [facility]STAL
[2017-04-02 20:00] VITALS: BP 118/67
[2017-04-02] MEDS: OMEPRAZOLE 20 MG CAP PO SCH ×2 (21:00→21:19)
== END 2017-04-02 21:50 | disposition short-term general hospital (02) | DRG 445 ==
LOC: M ED 16:24 → M ED INP 23:47 → M PCU 04-02 00:38 → M PED 04-02 11:55
PROVIDERS: ADMIT Hospitalist; ATTEND General Practice
DX: K83.1 Obstruction of bile duct (principal); Z68.41 Body mass index [BMI] 40.0-44.9, adult; E66.9 Obesity, unspecified; I89.0 Lymphedema, not elsewhere classified; R74.0 Nonspecific elevation of levels of transaminase and lactic acid dehydrogenase [LDH]; F32.9 Major depressive disorder, single episode, unspecified; E03.9 Hypothyroidism, unspecified; K86.89 Other specified diseases of pancreas; K76.0 Fatty (change of) liver, not elsewhere classified; M54.9 Dorsalgia, unspecified; M79.7 Fibromyalgia; Z98.84 Bariatric surgery status; Z79.891 Long term (current) use of opiate analgesic; Z79.899 Other long term (current) drug therapy

== ENCOUNTER → 2017-05-23 | Outpatient (CLI) | payer OTHER ==
[~2017-05-23] MED LIST changes: +CYCL10TA PO; +DULO1CAP3 PO; +FURO40TA2 PO; +LORA10TA2 PO; +NEUR300C PO; +NUCY150T PO; +OMEP20CA3 PO
--- NOTE | 2017-05-24 00:23 | ECWPNPC ---
PATIENT NAME: CINDI MARIE : 1965 GENDER: FEMALE VISIT DATE: 05/23/2017 DISCHARGE DATE: 05/23/17 1549 VISIT LOCKED DATE TIME: PHYSICIAN: JOLYNN ALEMAN PHYSICIAN PAGER NO: [phone] RESOURCE: JOLYNN ALEMAN REASON FOR APPOINTMENT 1. W/C LBP HISTORY OF PRESENT ILLNESS HISTORY OF PRESENT ILLNESS: PAIN THE PATIENT DESCRIBES THE PAIN... THE PATIENT DESCRIBES THE PAIN... 51 YEAR OLD FEMALE PATIENT WITH HISTORY OF CHRONIC LOW BACK PAIN. PATIENT DESCRIBES THAT PAIN SHARP, TENDER, SORE, AND HAVING IT ALL THE TIME WITH A PAIN SCORE OF 4/10. PATIENT WAS HURT IN A WORK RELATED INJURY WHILE WORKING AT [employer] ON 04/03/2003. PATIENT IS CURRENTLY USING NUCYNTA, CYMBALTA, OXYCODONE, AND AMITRIPTYLINE AND THE PATIENT REPORTS THAT THE MEDICATIONS KEEP HER MOBILE AND FUNCTIONAL. PATIENT REPORTS HAVE MORE BACK SPASMS RECENTLY .WAS PRESCRIBED FLEXERIL 10MG AT LAST VISIT AND THIS IS HELPFUL. MEDICATION MANAGEMENT AND REST AID IN PAIN RELIEF. PATIENT DENIES UNEXPLAINABLE WEIGHT LOSS, FEVER, CHILLS, NEW CHANGES ON HER URINARY OR BOWEL CONTROL. FALL RISK SCREENING: SCREENING :NO FALLS IN THE PAST YEAR CURRENT MEDICATIONS TAKING CLARITIN 10 MG TABLET 1 TABLET ORALLY ONCE A DAY TAKING FUROSEMIDE 40 MG TABLET 1 TABLET ORALLY ONCE A DAY TAKING IRON 28 MG TABLET 1 TABLET ORALLY ONCE A DAY TAKING OMEPRAZOLE 40 MG CAPSULE DELAYED RELEASE 1 CAP ORALLY ONCE A DAY TAKING PATITO-E 400 MG TABLET 600MG ORALLY DAILY TAKING MAGNESIUM 100 MG TABLET 2 TABLETS WITH A MEAL ORALLY ONCE A DAY TAKING VITAMIN C 250 MG TABLET 4 TABLET ORALLY ONCE A DAY TAKING PRE-BINH 2 TABS DAILY TAKING CALCIUM 500 + D 500-125 MG-UNIT TABLET 2 TABLET WITH FOOD ORALLY ONCE A DAY TAKING VITAMIN B-12 1000 MCG TABLET SUBLINGUAL 1 TABLET UNDER THE TONGUE AND ALLOW TO DISSOLVE SUBLINGUAL ONCE A DAY TAKING AMITRIPTYLINE HCL 25 MG TABLET 2 ORALLY ONCE A DAY FOR PAIN MDD2 TAKING CYMBALTA 60 MG CAPSULE DELAYED RELEASE PARTICLES 1 CAPSULE ORALLY ONCE A DAY FOR PAIN TAKING GABAPENTIN 300 MG CAPSULE 1 CAPSULE ORALLY BEFORE BEDTIME FOR PAIN TAKING NUCYNTA ER 150 MG TABLET EXTENDED RELEASE 12 HOUR 1 TABLET (CODE D FOR CHRONIC PAIN) ORALLY FOR PAIN EVERY 12 HRSMDD2 TAKING OXYCODONE-ACETAMINOPHEN 7.5-325 MG TABLET 1 ORALLY EVERY 4-6 HR PRNMDD5 TAKING CYCLOBENZAPRINE HCL 10 MG TABLET 1 TABLET NEEDED ORALLY THREE TIMES A DAY FOR SPASMS AND PAIN MDD3 MEDICATION LIST REVIEWED AND RECONCILED WITH THE PATIENT PAST MEDICAL HISTORY HX OF OBESITY DEPRESSION BACK INJURY 2002 ALLERGIES LYRICA: SWELLING: SIDE EFFECTS SURGICAL HISTORY GASTRIC BYPASS APPENDECTOMY LT KNEE X2 GASTRIC BYPASS REVISION 07/2016 CHOLECYSTECTOMY 2016 REVIEW OF SYSTEMS REVIEWED BY: PROVIDER: JOLYNN WOOD . CONSTITUTIONAL: ANY CHANGE IN YOUR MEDICAL CONDITION? 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 CHILLS NO . FEVER NO . INFECTION: DO YOU HAVE NEW INFECTIONS? NO . DO YOU HAVE HISTORY OF MRSA? NO . MUSCULOSKELETAL: ANY NEW PATTERNS OF PAIN OR NUMBNESS? NO . GASTROENTEROLOGY: ANY NEW CHANGE IN BOWEL CONTROL? NO . GENITOURINARY: ANY NEW CHANGE IN BLADDER CONTROL? NO . IS THERE A CHANCE YOU COULD BE ? NO . HEMATOLOGY/LYMPH: DO YOU TAKE ANY BLOOD THINNERS? (FOR EXAMPLE- COUMADIN, PLAVIX, AGGRENOX, PLATEL, PRADAXA, OR XARELTO) NO . WHEN WAS YOUR LAST DOSE? DATE: TIME: . NEUROLOGY: HAVE YOU FALLEN IN THE PAST 6 MONTHS? NO . ANY NEW EXTREMITY NUMBNESS OR WEAKNESS? NO . CARDIOLOGY: DO YOU HAVE A PACEMAKER OR DEFIBRILLATOR? NO . RESPIRATORY: HAVE YOU BEEN SICK IN THE PAST WEEK? NO . FEVER NO . FLU LIKE SYMPTOMS? NO . COUGH NO . INTEGUMENTARY: DO YOU HAVE ANY RASHES OR OPEN SORES? NO . ALLERGIC/IMMUNO: ARE YOU ALLERGIC TO SHELLFISH OR IV DYE? NO . ANY NEW ALLERGIES? NO . PSYCHIATRIC: DO YOU HAVE THOUGHTS OF HURTING YOURSELF OR SOMEONE ELSE? NO . ARE YOU ABUSED, NEGLECTED, OR IN AN UNSAFE ENVIRONMENT? NO . ENDOCRINOLOGY: ARE YOU DIABETIC? NO . OTHER: DO YOU NEED ANY PRESCRIPTIONS? NO . IF YES, PLEASE LIST: ____ . ANY NEW PROBLEMS WITH YOUR MEDICATIONS? NO . WHEN DID YOU LAST EAT? ____ . WHEN DID YOU LAST DRINK? ____ . WHAT DID YOU LAST DRINK? ____ . NAME OF PERSON DRIVING YOU HOME? ____ . DO YOU HAVE ANY OTHER QUESTIONS OR CONCERNS NO . VITAL SIGNS WT 203 LBS, HT 62 1/2, BMI 36.53 INDEX, BP 131/68 MM HG, HR 79 /MIN, RR 16 /MIN, TEMP 96.3 F, OXYGEN SAT % 97%, NA INITIALS SC 14:49, REVIEWED BY: NL. EXAMINATION GENERAL EXAMINATION: LUNGS:LUNG SOUNDS ARE CLEAR. HEART:HEART RATE REGULAR. MUSCULOSKELETAL:*. MUSCULOSKELETAL:*, MUSCLE STRENGTH TESTING 5/5 BILATERAL, PALPATION: POSITIVE FOR PAIN OVER L/S SPINE. POSITIVE FOR PAIN OVER L/S PARSPINALS. ASSESSMENTS CHRONIC BILATERAL LOW BACK PAIN WITHOUT SCIATICA - M54.5 (PRIMARY) CHRONIC PRESCRIPTION OPIATE USE - Z79.891 TREATMENT CHRONIC BILATERAL LOW BACK PAIN WITHOUT SCIATICA CONTINUE AMITRIPTYLINE HCL TABLET, 25 MG, 2, ORALLY, ONCE A DAY FOR PAIN MDD2 CONTINUE CYMBALTA CAPSULE DELAYED RELEASE PARTICLES, 60 MG, 1 CAPSULE, ORALLY, ONCE A DAY FOR PAIN CONTINUE GABAPENTIN CAPSULE, 300 MG, 1 CAPSULE, ORALLY, BEFORE BEDTIME FOR PAIN DECREASE NUCYNTA ER TABLET EXTENDED RELEASE 12 HOUR, 100 MG, 1 TABLET (CODE D FOR CHRONIC PAIN), ORALLY, DAILY, 30 DAY(S), 30 TABLET, REFILLS 0 REFILL OXYCODONE-ACETAMINOPHEN TABLET, 7.5-325 MG, 1, ORALLY, EVERY 4-6 HR PRNMDD5, 30 DAY(S), 150, REFILLS 0 NOTES: ISTOP REGISTRY REVIEWED AND DEMNOSTRATES COMPLLIANCE. BRINGS IN MEDICATIONS WHICH IS APPROPRIATE FOR WHAT WAS DISPENSED. RECENT URINE TOXICOLOGY REVIEWED. NO UNAUTHORIZED MEDICATIONS. NO ILLICIT SUBSTANCES AND PRESCRIBED MEDICATIONS WERE PRESENT. , RISKS AND BENEFITS OF NARCOTIC/OPIOD MEDICATIONS WERE REVIEWED WITH PATIENT - THIS INCLUDES BUT IS NOT LIMITED TO RISK OF DEPENDANCE/DEVELOPMENT OF ADDICTION, MOOD DISTURBANCE AND DEPRESSION, OSTEOPOROSIS, HORMONAL AND LABIDAL CHANGES, RESPIRATORY DEPRESSION AND . PATIENT IS ADVISED NOT TO DRIVE WHILE ON THESE MEDICATIONS. PROCEDURES PN WORKMANS' COMP OPINION IN YOUR OPINION, WAS THE INCIDENT THAT THE PATIENT DESCRIBED THE COMPETENT MEDICAL CAUSE OF THIS INJURY/ILLNESS? YES ARE THE PATIENT'S COMPLAINTS CONSISTENT WITH HIS/HER HISTORY OF THE INJURY/ILLNESS? YES IS THE PATIENT'S HISTORY OF THE INJURY/ILLNESS CONSISTENT WITH YOUR OBJECTIVE FINDING? YES WHAT IS THE PERCENTAGE OF TEMPORARY IMPAIRMENT? MODERATE TO MARKED = 66.7% IS THE PATIENT WORKING? YES DOCTOR ON SITE: LEOPOLDO ESPINOZA MD PROCEDURE CODES FA211 ESTABILISHED PATIENT [facility] CHARGE DISPOSITION & COMMUNICATION FOLLOW UP 4 WEEKS ELECTRONICALLY SIGNED BY ISRAEL BOLTON ON 05/23/2017 AT 04:41 PM EDT DISCLAIMER : THIS IS A VISIT SUMMARY EXTRACTED FROM THE [employer] CHART. IT IS NOT A COPY OF THE [employer] PROGRESS NOTE. CHRISTAL
== END ==
LOC: M PAIN 14:45
PROVIDERS: ATTEND Nurse Practitioner Family
DX: G89.29 Other chronic pain (principal); M54.5 Low back pain; F32.9 Major depressive disorder, single episode, unspecified; Z98.84 Bariatric surgery status; Z79.891 Long term (current) use of opiate analgesic; Z79.899 Other long term (current) drug therapy; Z88.8 Allergy status to other drugs, medicaments and biological substances

== ENCOUNTER → 2017-09-27 | Outpatient (CLI) | payer OTHER | LOC: M PAIN 14:45 | DX: G89.29 Other chronic pain (principal); M54.5 Low back pain; F32.9 Major depressive disorder, single episode, unspecified; E66.9 Obesity, unspecified; Z68.37 Body mass index [BMI] 37.0-37.9, adult; Z79.891 Long term (current) use of opiate analgesic; Z79.899 Other long term (current) drug therapy; Z88.8 Allergy status to other drugs, medicaments and biological substances; Z98.84 Bariatric surgery status | CPT/HCPCS: G0463 ==

== ENCOUNTER → 2017-10-18 | Outpatient (CLI) | payer OTHER | LOC: M PAIN 14:00 | DX: G89.29 Other chronic pain (principal); M54.5 Low back pain; E66.9 Obesity, unspecified; Z68.37 Body mass index [BMI] 37.0-37.9, adult; Z79.891 Long term (current) use of opiate analgesic; Z79.899 Other long term (current) drug therapy; Z88.8 Allergy status to other drugs, medicaments and biological substances; Z98.84 Bariatric surgery status | CPT/HCPCS: G0463 ==

== ENCOUNTER → 2018-02-13 | Outpatient (CLI) | payer OTHER | LOC: M PAIN 11:30 | DX: G89.29 Other chronic pain (principal); M54.5 Low back pain; F32.9 Major depressive disorder, single episode, unspecified; Z98.84 Bariatric surgery status; Z79.891 Long term (current) use of opiate analgesic; Z79.899 Other long term (current) drug therapy; Z90.49 Acquired absence of other specified parts of digestive tract; Z88.8 Allergy status to other drugs, medicaments and biological substances | CPT/HCPCS: G0463 ==

== ENCOUNTER → 2018-03-14 | Outpatient (CLI) | payer OTHER ==
[2018-03-14 14:08] LABS: BASO # 0.1 10^3/uL (0.0-0.2); BASO % 0.8 % (0.0-1.0); EOS # 0.2 10^3/uL (0.0-0.50); EOS % 2.4 % (0.0-3.0); HEMATOCRIT 35.3 % (36.0-47.0); HEMOGLOBIN 10.9 g/dl (12.0-15.5); IMMATURE GRANULOCYTE % 0.6 % (0-3.0); LYMPH # 3.5 10^3/uL (1.5-4.5); LYMPH % 34.7 % (24.0-44.0); MEAN CORPUSCULAR HEMOGLOBIN 25.7 pg (27.0-33.0); MEAN CORPUSCULAR HGB CONC 30.9 g/dl (32.0-36.5); MEAN CORPUSCULAR VOLUME 83.3 fl (80.0-96.0); MONO # 0.6 10^3/uL (0.0-0.8); MONO % 6.3 % (0.0-5.0); NEUTROPHILS # 5.6 10^3/uL (1.8-7.7); NEUTROPHILS % 55.2 % (36.0-66.0); PLATELET COUNT, AUTOMATED 346 10^3/uL (150-450); RED BLOOD COUNT 4.24 10^6/uL (4.00-5.40); RED CELL DISTRIBUTION WIDTH 15.2 % (11.5-14.5)
[2018-03-14 14:30] LABS: ERYTHROCYTE SEDIMENTATION RATE 21 mm/hr (0-30); ESTIMATED AVERAGE GLUCOSE 131 MG/DL (60-110); HEMOGLOBIN A1c 6.2 %
[2018-03-14 14:39] LABS: ALBUMIN 3.4 GM/DL (3.2-5.2); ALBUMIN/GLOBULIN RATIO 1.03 (1.00-1.93); ALKALINE PHOSPHATASE 200 U/L (45-117); ALT/SGPT 77 U/L (12-78); ANION GAP 6 MEQ/L (8-16); AST/SGOT 51 U/L (7-37); BILIRUBIN,TOTAL 0.2 MG/DL (0.2-1.0); BLOOD UREA NITROGEN 11 MG/DL (7-18); CALCIUM LEVEL 8.2 MG/DL (8.5-10.1); CARBON DIOXIDE LEVEL 28 MEQ/L (21-32); CHLORIDE LEVEL 106 MEQ/L (98-107); CREATININE FOR GFR 0.82 MG/DL (0.55-1.30); FREE T4 0.74 NG/DL (0.76-1.46); GLOMERULAR FILTRATION RATE > 60.0 (>51); GLUCOSE, FASTING 104 MG/DL (70-100); RHEUMATOID FACTOR QUANT < 10.0 IU/ML (<15.0); SODIUM LEVEL 140 MEQ/L (136-145); TOTAL PROTEIN 6.7 GM/DL (6.4-8.2)
[2018-03-14 14:50] LABS: FOLATE 6.6 NG/ML; VITAMIN B12 LEVEL 608 PG/ML
== END ==
LOC: M LAB 13:25
DX: E07.9 Disorder of thyroid, unspecified (principal); E11.9 Type 2 diabetes mellitus without complications; E53.8 Deficiency of other specified B group vitamins; R41.3 Other amnesia
CPT/HCPCS: 82746

== ENCOUNTER → 2018-05-27 | Outpatient (CLI) | payer OTHER | LOC: M PAIN 13:45 | DX: M54.5 Low back pain (principal); G89.29 Other chronic pain; F32.9 Major depressive disorder, single episode, unspecified; E66.01 Morbid (severe) obesity due to excess calories; Z68.39 Body mass index [BMI] 39.0-39.9, adult; Z79.891 Long term (current) use of opiate analgesic; Z79.899 Other long term (current) drug therapy; Z88.8 Allergy status to other drugs, medicaments and biological substances; Z98.84 Bariatric surgery status | CPT/HCPCS: G0463 ==

== ENCOUNTER → 2018-09-10 | Outpatient (REF) | payer OTHER ==
[~2018-09-10] MED LIST changes: -LORA10TA2 PO; +LORA10TA3 PO
[2018-09-10 19:58] LABS: FOLATE 6.1 NG/ML
== END ==
LOC: M LAB REF 18:46
PROVIDERS: ATTEND Nurse Practitioner Family
DX: D64.9 Anemia, unspecified (principal)

== ENCOUNTER → 2018-09-12 | Outpatient (CLI) | payer OTHER ==
--- NOTE | 2018-10-06 00:51 | ECWPNPC ---
PATIENT NAME: CINDI MARIE : 1965 GENDER: FEMALE VISIT DATE: 09/12/2018 DISCHARGE DATE: 09/12/18 1547 VISIT LOCKED DATE TIME: PHYSICIAN: JOLYNN ALEMAN PHYSICIAN PAGER NO: INACTIVE RESOURCE: JOLYNN ALEMAN REASON FOR APPOINTMENT 1. BACK/WC 2 MONTH F/U HISTORY OF PRESENT ILLNESS HISTORY OF PRESENT ILLNESS: PAIN THE PATIENT DESCRIBES THE PAIN... THE PATIENT DESCRIBES THE PAIN... THE PATIENT DESCRIBES THE PAIN... THE PATIENT DESCRIBES THE PAIN... THE PATIENT DESCRIBES THE PAIN... THE PATIENT DESCRIBES THE PAIN... THE PATIENT DESCRIBES THE PAIN... 52 YEAR OLD FEMALE PATIENT WITH HISTORY OF CHRONIC LOW BACK PAIN. PATIENT DESCRIBES THAT PAIN SHARP, TENDER, SORE, AND HAVING IT ALL THE TIME WITH A PAIN SCORE OF 6/10. PATIENT WAS HURT IN A WORK RELATED INJURY WHILE WORKING AT [employer] ON 04/03/2003. PATIENT IS CURRENTLY USING NUCYNTA, CYMBALTA, OXYCODONE, AND AMITRIPTYLINE AND THE PATIENT REPORTS THAT THE MEDICATIONS KEEP HER MOBILE AND FUNCTIONAL. REPORTING MORE BACK SPASMS RECENTLY .WAS PRESCRIBED FLEXERIL 10MG AT LAST VISIT AND THIS IS HELPFUL. PATIENT DENIES UNEXPLAINABLE WEIGHT LOSS, FEVER, CHILLS, NEW CHANGES ON HER URINARY OR BOWEL CONTROL. FALL RISK SCREENING: SCREENING :NO FALLS IN THE PAST YEAR CURRENT MEDICATIONS TAKING CLARITIN 10 MG TABLET 1 TABLET ORALLY ONCE A DAY TAKING FUROSEMIDE 40 MG TABLET 1 TABLET ORALLY ONCE A DAY PRN TAKING OMEPRAZOLE 40 MG CAPSULE DELAYED RELEASE 1 CAP ORALLY ONCE A DAY TAKING VITAMIN C 250 MG TABLET 4 TABLET ORALLY ONCE A DAY TAKING CALCIUM 500 + D 500-125 MG-UNIT TABLET 2 TABLET WITH FOOD ORALLY ONCE A DAY TAKING VITAMIN B-12 1000 MCG TABLET SUBLINGUAL 1 TABLET UNDER THE TONGUE AND ALLOW TO DISSOLVE SUBLINGUAL ONCE A DAY TAKING AMITRIPTYLINE HCL 25 MG TABLET 2 ORALLY ONCE A DAY FOR PAIN MDD2 TAKING CYMBALTA 60 MG CAPSULE DELAYED RELEASE PARTICLES 1 CAPSULE ORALLY ONCE A DAY FOR PAIN, NOTES: W/C TAKING CYCLOBENZAPRINE HCL 10 MG TABLET 1 TABLET ORALLY Q8H PRN TAKING GABAPENTIN 300 MG CAPSULE 1 CAPSULE ORALLY BID TAKING NUCYNTA ER 150 MG TABLET EXTENDED RELEASE 12 HOUR 1 TABLET (CODE D FOR CHRONIC PAIN) ORALLY BID MDD2 TAKING OXYCODONE-ACETAMINOPHEN 7.5-325 MG TABLET 1 ORALLY EVERY 4-6 HR PRNMDD5 NOT-TAKING CYMBALTA 30 MG CAPSULE DELAYED RELEASE PARTICLES 1 CAPSULE ORALLY ONCE A DAY WITH 60MG TAB NOT-TAKING PATITO-E 400 MG TABLET 600MG ORALLY DAILY MEDICATION LIST REVIEWED AND RECONCILED WITH THE PATIENT PAST MEDICAL HISTORY HX OF OBESITY DEPRESSION BACK INJURY 2002 PLANTAR FASCITIS ALLERGIES LYRICA: SWELLING: SIDE EFFECTS SURGICAL HISTORY GASTRIC BYPASS APPENDECTOMY LT KNEE X2 GASTRIC BYPASS REVISION 07/2016 CHOLECYSTECTOMY 2017 LEFT EYE L[address]ER SUR[address]ERY [address] WILBURN 05/20/2018 FAMILY HISTORY NO FAMILY HISTORY DOCUMENTED. SOCIAL HISTORY GENERAL: TOBACCO USE ARE YOU A:NONSMOKER ALCOHOL SCREENING DID YOU HAVE A DRINK CONTAINING ALCOHOL IN THE PAST YEAR?NO POINTS0 INTERPRETATIONNEGATIVE RECREATIONAL DRUG USE DRUG USE?NO CAFFEINE CAFFEINE USE?YES HOW OFTEN AND HOW MUCH? 1-2 SODAS/DAY, OCC. COFFEE MOSQUE [id number] [employer] L[employer] LANGUAGES SPOKEN:TAMAZIGHT EDUCATION LEVEL OF EDUCATION:HIGH SCHOOL ALSO TRADE SCHOOL LEARNING BARRIERS / SPECIAL NEEDS BARRIERS TO LEARNING?NO HEARING IMPAIRED?NO VISION IMPAIRED?YES :CORRECTIVE LENSES COGNITIVELY IMPAIRED?NO READINESS TO LEARN?YES LEARNING PREFERENCES?NO LEARNING CAPABILITIES PRESENT?YES EMOTIONAL BARRIERS?NO SPECIAL DEVICES?NO MANAGER PAYROLL NEEDED?NO DOMESTIC VIOLENCE DO YOU FEEL SAFE IN YOUR ENVIRONMENT?YES PAIN CLINIC PFS, CLERGY, PUBLIC HEALTH REFERRALS PFS REFERRAL NEEDED?NO CLERGY REFERRAL NEEDED?NO PUBLIC HEALTH REFERRAL NEEDED?NO WAS THE PROVIDER NOTIFIED OF ANY PERTINENT INFO?NO N/A HAS THE PATIENT BEEN EDUCATED REGARDING HIS/HER PLAN OF CARE?YES HAS THE PATIENT BEEN EDUCATED REGARDING PAIN, THE RISK FOR PAIN, THE IMPORTANCE OF EFFECTIVE PAIN MANAGEMENT, AND THE PAIN ASSESSMENT PROCESS?YES ADVANCE DIRECTIVE ADVANCE DIRECTIVE DISCUSSED WITH PATIENT:YES PATIENT DECLINED HCP INFORMATION. REVIEWED WITH PATIENT 09/12/18 6866 JS. HOSPITALIZATION/MAJOR DIAGNOSTIC PROCEDURE PAIN RIGHT SIDE 03/25 SURGERIES REVIEW OF SYSTEMS REVIEWED BY: PROVIDER: JOLYNN WOOD . CONSTITUTIONAL: ANY CHANGE IN YOUR MEDICAL CONDITION? NO . CHILLS NO . FEVER NO . INFECTION: DO YOU HAVE NEW INFECTIONS? NO . DO YOU HAVE HISTORY OF MRSA? NO . MUSCULOSKELETAL: ANY NEW PATTERNS OF PAIN OR NUMBNESS? YES, STATES NEW NUMBNESS TO RIGHT LEG . GASTROENTEROLOGY: ANY NEW CHANGE IN BOWEL CONTROL? NO . GENITOURINARY: ANY NEW CHANGE IN BLADDER CONTROL? NO . IS THERE A CHANCE YOU COULD BE ? NO . HEMATOLOGY/LYMPH: DO YOU TAKE ANY BLOOD THINNERS? (FOR EXAMPLE- COUMADIN, PLAVIX, AGGRENOX, PLATEL, PRADAXA, OR XARELTO) NO . WHEN WAS YOUR LAST DOSE? DATE: TIME: . NEUROLOGY: HAVE YOU FALLEN IN THE PAST 6 MONTHS? NO . ANY NEW EXTREMITY NUMBNESS OR WEAKNESS? NO . CARDIOLOGY: DO YOU HAVE A PACEMAKER OR DEFIBRILLATOR? NO . RESPIRATORY: HAVE YOU BEEN SICK IN THE PAST WEEK? NO . FEVER NO . FLU LIKE SYMPTOMS? NO . COUGH NO . INTEGUMENTARY: DO YOU HAVE ANY RASHES OR OPEN SORES? NO . ALLERGIC/IMMUNO: ARE YOU ALLERGIC TO SHELLFISH OR IV DYE? NO . ANY NEW ALLERGIES? NO . PSYCHIATRIC: DO YOU HAVE THOUGHTS OF HURTING YOURSELF OR SOMEONE ELSE? NO . ARE YOU ABUSED, NEGLECTED, OR IN AN UNSAFE ENVIRONMENT? NO . ENDOCRINOLOGY: ARE YOU DIABETIC? NO . OTHER: DO YOU NEED ANY PRESCRIPTIONS? NO . IF YES, PLEASE LIST: ____OXYCODONE, NUCYNTA, CYMBALTA, AMITRIPTYLINE . ANY NEW PROBLEMS WITH YOUR MEDICATIONS? NO . WHEN DID YOU LAST EAT? ____ . WHEN DID YOU LAST DRINK? ____ . WHAT DID YOU LAST DRINK? ____ . NAME OF PERSON DRIVING YOU HOME? ____ . DO YOU HAVE ANY OTHER QUESTIONS OR CONCERNS NO . VITAL SIGNS WT 226.8 LBS, HT 62 1/2, BMI 40.82 INDEX, BP 136/78 MM HG, HR 96 /MIN, RR 18 /MIN, TEMP 97.7 F, OXYGEN SAT % 96%, SAFE IN ENV? (Y/N) YES, NA INITIALS AW 1445, REVIEWED BY: RUSSELL. EXAMINATION GENERAL EXAMINATION: LUNGS:LUNG SOUNDS ARE CLEAR. HEART:HEART RATE REGULAR. MUSCULOSKELETAL:*, MUSCLE STRENGTH TESTING 5/5 BILATERAL LOWER LEGS , PALPATION: POSITIVE FOR PAIN OVER L/S SPINE. POSITIVE FOR PAIN OVER L/S PARSPINALS. ASSESSMENTS CHRONIC BILATERAL LOW BACK PAIN WITHOUT SCIATICA - M54.5 (PRIMARY) TREATMENT CHRONIC BILATERAL LOW BACK PAIN WITHOUT SCIATICA REFILL AMITRIPTYLINE HCL TABLET, 25 MG, 2, ORALLY, ONCE A DAY FOR PAIN MDD2, 30 DAY(S), 60, REFILLS 2 REFILL CYMBALTA CAPSULE DELAYED RELEASE PARTICLES, 60 MG, 1 CAPSULE, ORALLY, ONCE A DAY FOR PAIN, 30 DAY(S), 30, REFILLS 2, NOTES: W/C REFILL CYCLOBENZAPRINE HCL TABLET, 10 MG, 1 TABLET, ORALLY, Q8H PRN, 30 DAY(S), 90, REFILLS 2 REFILL GABAPENTIN CAPSULE, 300 MG, 1 CAPSULE, ORALLY, BID, 30 DAY(S), 60 CAPSULE, REFILLS 2 REFILL NUCYNTA ER TABLET EXTENDED RELEASE 12 HOUR, 150 MG, 1 TABLET (CODE D FOR CHRONIC PAIN), ORALLY, BID MDD2, 30 DAY(S), 60, REFILLS 0 REFILL OXYCODONE-ACETAMINOPHEN TABLET, 7.5-325 MG, 1, ORALLY, EVERY 4-6 HR PRNMDD5, 30 DAY(S), 150, REFILLS 0 NOTES: ISTOP REGISTRY REVIEWED AND DEMONSTRATES COMPLLIANCE. BRINGS IN MEDICATIONS WHICH IS APPROPRIATE FOR WHAT WAS DISPENSED. RECENT URINE TOXICOLOGY REVIEWED. NO UNAUTHORIZED MEDICATIONS. NO ILLICIT SUBSTANCES AND PRESCRIBED MEDICATIONS WERE PRESENT. URINE TOX TODAYFORMAL PILL COUNT /ID, RISKS AND BENEFITS OF NARCOTIC/OPIOD MEDICATIONS WERE REVIEWED WITH PATIENT - THIS INCLUDES BUT IS NOT LIMITED TO RISK OF DEPENDANCE/DEVELOPMENT OF ADDICTION, MOOD DISTURBANCE AND DEPRESSION, OSTEOPOROSIS, HORMONAL AND LABIDAL CHANGES, RESPIRATORY DEPRESSION AND . PATIENT IS ADVISED NOT TO DRIVE OR DRINK ALCOHOL WHILE ON THESE MEDICATIONS. PROCEDURES PN WORKMANS' COMP OPINION IN YOUR OPINION, WAS THE INCIDENT THAT THE PATIENT DESCRIBED THE COMPETENT MEDICAL CAUSE OF THIS INJURY/ILLNESS? YES ARE THE PATIENT'S COMPLAINTS CONSISTENT WITH HIS/HER HISTORY OF THE INJURY/ILLNESS? YES IS THE PATIENT'S HISTORY OF THE INJURY/ILLNESS CONSISTENT WITH YOUR OBJECTIVE FINDING? YES WHAT IS THE PERCENTAGE OF TEMPORARY IMPAIRMENT? MODERATE = 50% IS THE PATIENT WORKING? NO DOCTOR ON SITE: LEOPOLDO ESPINOZA MD PROCEDURE CODES FA211 ESTABILISHED PATIENT [facility] FACILITY CHARGE DISPOSITION & COMMUNICATION FOLLOW UP 3 MONTHS (REASON: W/C MED MGMNT) ELECTRONICALLY SIGNED BY ISRAEL MESSINA ON 10/05/2018 AT 01:27 PM EST DISCLAIMER : THIS IS A VISIT SUMMARY EXTRACTED FROM THE [employer] CHART. IT IS NOT A COPY OF THE [employer] PROGRESS NOTE. CHRISTAL
== END ==
LOC: M PAIN 14:30
PROVIDERS: ATTEND Nurse Practitioner Family
DX: M54.5 Low back pain (principal); G89.29 Other chronic pain; F32.9 Major depressive disorder, single episode, unspecified; E66.01 Morbid (severe) obesity due to excess calories; Z68.41 Body mass index [BMI] 40.0-44.9, adult; Z79.891 Long term (current) use of opiate analgesic; Z79.899 Other long term (current) drug therapy; Z88.8 Allergy status to other drugs, medicaments and biological substances; Z98.84 Bariatric surgery status

== ENCOUNTER → 2018-12-11 | Outpatient (CLI) | payer OTHER ==
[~2018-12-11] MED LIST changes: -/DULO30CA OR; +ACET-716 PO; -ACET30TAB PO; +CYMB1CAP4 OR; +CYMB1CAP4 PO; +CYMB1CAP5 OR; -DULO20CA OR; -DULO20CA PO; +LACT15SO PO; -LACT20EL PO; -NUCY200T PO; +PENI500T PO; -PENI50TA PO; +TAPE200T PO
--- NOTE | 2018-12-26 02:29 | ECWPNPC ---
PATIENT NAME: CINDI MARIE : 1965 GENDER: FEMALE VISIT DATE: 12/11/2018 DISCHARGE DATE: 12/11/18 1527 VISIT LOCKED DATE TIME: PHYSICIAN: JOLYNN ALEMAN PHYSICIAN PAGER NO: INACTIVE RESOURCE: JOLYNN ALEMAN REASON FOR APPOINTMENT 1. W/C MED MGMNT HISTORY OF PRESENT ILLNESS HISTORY OF PRESENT ILLNESS: PAIN THE PATIENT DESCRIBES THE PAIN... THE PATIENT DESCRIBES THE PAIN... THE PATIENT DESCRIBES THE PAIN... THE PATIENT DESCRIBES THE PAIN... THE PATIENT DESCRIBES THE PAIN... THE PATIENT DESCRIBES THE PAIN... THE PATIENT DESCRIBES THE PAIN... THE PATIENT DESCRIBES THE PAIN... PAIN THE PATIENT DESCRIBES THE PAIN... THE PATIENT DESCRIBES THE PAIN... THE PATIENT DESCRIBES THE PAIN... THE PATIENT DESCRIBES THE PAIN... THE PATIENT DESCRIBES THE PAIN... THE PATIENT DESCRIBES THE PAIN... THE PATIENT DESCRIBES THE PAIN... THE PATIENT DESCRIBES THE PAIN... 52 YEAR OLD FEMALE PATIENT WITH HISTORY OF CHRONIC LOW BACK PAIN. PATIENT DESCRIBES THAT PAIN SHARP, TENDER, SORE, AND HAVING IT ALL THE TIME WITH A PAIN SCORE OF 6/10. PATIENT WAS HURT IN A WORK RELATED INJURY WHILE WORKING AT [employer] [facility] ON 04/03/2003. PATIENT IS CURRENTLY USING NUCYNTA, CYMBALTA, OXYCODONE, AND AMITRIPTYLINE AND THE PATIENT REPORTS THAT THE MEDICATIONS KEEP HER MOBILE AND FUNCTIONAL. REPORTING MORE BACK SPASMS RECENTLY .WAS PRESCRIBED FLEXERIL 10MG AT LAST VISIT AND THIS IS HELPFUL. PATIENT DENIES UNEXPLAINABLE WEIGHT LOSS, FEVER, CHILLS, NEW CHANGES ON HER URINARY OR BOWEL CONTROL. FALL RISK SCREENING: SCREENING :NO FALLS REPORTED IN THE LAST YEAR CURRENT MEDICATIONS TAKING CLARITIN 10 MG TABLET 1 TABLET ORALLY ONCE A DAY TAKING FUROSEMIDE 40 MG TABLET 1 TABLET ORALLY ONCE A DAY PRN TAKING OMEPRAZOLE 40 MG CAPSULE DELAYED RELEASE 1 CAP ORALLY ONCE A DAY TAKING VITAMIN C 250 MG TABLET 4 TABLET ORALLY ONCE A DAY TAKING CALCIUM 500 + D 500-125 MG-UNIT TABLET 2 TABLET WITH FOOD ORALLY ONCE A DAY TAKING VITAMIN B-12 1000 MCG TABLET SUBLINGUAL 1 TABLET UNDER THE TONGUE AND ALLOW TO DISSOLVE SUBLINGUAL ONCE A DAY TAKING AMITRIPTYLINE HCL 25 MG TABLET 2 ORALLY ONCE A DAY FOR PAIN MDD2 TAKING CYMBALTA 60 MG CAPSULE DELAYED RELEASE PARTICLES 1 CAPSULE ORALLY ONCE A DAY FOR PAIN, NOTES: W/C TAKING CYCLOBENZAPRINE HCL 10 MG TABLET 1 TABLET ORALLY Q8H PRN TAKING GABAPENTIN 300 MG CAPSULE 1 CAPSULE ORALLY BID TAKING OXYCODONE-ACETAMINOPHEN 7.5-325 MG TABLET 1 ORALLY EVERY 4-6 HR PRNMDD5 TAKING NUCYNTA ER 150 MG TABLET EXTENDED RELEASE 12 HOUR 1 TABLET (CODE D FOR CHRONIC PAIN) ORALLY BID MDD2 NOT-TAKING CYMBALTA 30 MG CAPSULE DELAYED RELEASE PARTICLES 1 CAPSULE ORALLY ONCE A DAY WITH 60MG TAB NOT-TAKING PATITO-E 400 MG TABLET 600MG ORALLY DAILY MEDICATION LIST REVIEWED AND RECONCILED WITH THE PATIENT PAST MEDICAL HISTORY HX OF OBESITY DEPRESSION BACK INJURY 2002 PLANTAR FASCITIS ALLERGIES LYRICA: SWELLING - SIDE EFFECTS SURGICAL HISTORY GASTRIC BYPASS APPENDECTOMY LT KNEE X2 GASTRIC BYPASS REVISION 07/2016 CHOLECYSTECTOMY 2017 LEFT EYE LASER SURGERY DR. WILBURN 05/20/2018 FAMILY HISTORY FATHER: , DIAGNOSED WITH HEART DISEASE MOTHER: 1 BROTHER(S) , 2 SISTER(S) . MOM-LUNG ISSUES, BROTHER - WITH ISSUES RELATED TO DM AND POST SURGICAL EMBOLI. SISTER- FROM DIABETIC SEIZURE/COMA. SOCIAL HISTORY GENERAL: TOBACCO USE ARE YOU A:NONSMOKER LATEX QUESTIONNAIRE LATEX ALLERGY : HAVE YOU EVER DEVELOPED ANY TYPE OF REACTION AFTER HANDLING LATEX PRODUCTS SUCH RUBBER GLOVES, CONDOMS, DIAPHRAGMS, BALLOONS, SOCKS, OR UNDERWEAR?NO LATEX ALLERGY : HAVE YOU EVER DEVELOPED ANY TYPE OF REACTION DURING OR AFTER DENTAL APPOINTMENT, VAGINAL/RECTAL EXAMINATION, SURGICAL PROCEDURE, OR ANY OTHER EXPOSURE?NO LATEX RISK : HAVE YOU EVER HAD ANY DIFFICULTY BREATHING OR HIVES AFTER EATING OR HANDLING ANY FRUITS, OR VEGETABLES; SUCH KIWI, BANANAS, STONE FRUITS, OR CHESTNUTSNO LATEX RISK : DO YOU HAVE A PREVIOUS PERSONAL HISTORY OF MORE THAN NINE SURGERIES, SPINA BIFIDA, OR REPEATED CATHERTIZATIONS? NO LATEX RISK : ARE YOU FREQUENTLY EXPOSED TO LATEX PRODUCTS IN YOUR OCCUPATION?NO DATE ASKED : 12/11/2018 ALCOHOL SCREENING DID YOU HAVE A DRINK CONTAINING ALCOHOL IN THE PAST YEAR?NO POINTS0 INTERPRETATIONNEGATIVE RECREATIONAL DRUG USE DRUG USE?NO CAFFEINE CAFFEINE USE?YES HOW OFTEN AND HOW MUCH? 1-2 SODAS/DAY, OCC. COFFEE ANGLICAN [id number] EPISCOPALIAN LANGUAGE LANGUAGES SPOKEN:DANISH EDUCATION LEVEL OF EDUCATION:HIGH SCHOOL ALSO TRADE SCHOOL LEARNING BARRIERS / SPECIAL NEEDS BARRIERS TO LEARNING?NO HEARING IMPAIRED?NO VISION IMPAIRED?YES :CORRECTIVE LENSES COGNITIVELY IMPAIRED?NO READINESS TO LEARN?YES LEARNING PREFERENCES?NO LEARNING CAPABILITIES PRESENT?YES EMOTIONAL BARRIERS?NO SPECIAL DEVICES?NO AIRPORT OPERATIONS SUPERVISOR NEEDED?NO DOMESTIC VIOLENCE DO YOU FEEL SAFE IN YOUR ENVIRONMENT?YES PAIN CLINIC PFS, CLERGY, PUBLIC HEALTH REFERRALS PFS REFERRAL NEEDED?NO CLERGY REFERRAL NEEDED?NO PUBLIC HEALTH REFERRAL NEEDED?NO WAS THE PROVIDER NOTIFIED OF ANY PERTINENT INFO?YES N/A HAS THE PATIENT BEEN EDUCATED REGARDING HIS/HER PLAN OF CARE?YES HAS THE PATIENT BEEN EDUCATED REGARDING PAIN, THE RISK FOR PAIN, THE IMPORTANCE OF EFFECTIVE PAIN MANAGEMENT, AND THE PAIN ASSESSMENT PROCESS?YES ADVANCE DIRECTIVE ADVANCE DIRECTIVE DISCUSSED WITH PATIENT:YES PATIENT DECLINED HCP INFORMATION, PT DECLINED ASSISTANCE WITH FILLING OUT HCP. DS REVIEWED WITH PATIENT 09/12/18 [id number] JS. HOSPITALIZATION/MAJOR DIAGNOSTIC PROCEDURE PAIN RIGHT SIDE 03/25 SURGERIES REVIEW OF SYSTEMS REVIEWED BY: PROVIDER: JOLYNN WOOD . CONSTITUTIONAL: ANY CHANGE IN YOUR MEDICAL CONDITION? NO . CHILLS NO . FEVER NO . INFECTION: DO YOU HAVE NEW INFECTIONS? NO . DO YOU HAVE HISTORY OF MRSA? NO . MUSCULOSKELETAL: ANY NEW PATTERNS OF PAIN OR NUMBNESS? NO . GASTROENTEROLOGY: ANY NEW CHANGE IN BOWEL CONTROL? NO . GENITOURINARY: ANY NEW CHANGE IN BLADDER CONTROL? NO . IS THERE A CHANCE YOU COULD BE ? NO . HEMATOLOGY/LYMPH: DO YOU TAKE ANY BLOOD THINNERS? (FOR EXAMPLE- COUMADIN, PLAVIX, AGGRENOX, PLATEL, PRADAXA, OR XARELTO) NO . WHEN WAS YOUR LAST DOSE? DATE: TIME: . NEUROLOGY: HAVE YOU FALLEN IN THE PAST 12 MONTHS? NO . ANY NEW EXTREMITY NUMBNESS OR WEAKNESS? NO . CARDIOLOGY: DO YOU HAVE A PACEMAKER OR DEFIBRILLATOR? NO . RESPIRATORY: HAVE YOU BEEN SICK IN THE PAST WEEK? NO . FEVER NO . FLU LIKE SYMPTOMS? NO . COUGH NO . INTEGUMENTARY: DO YOU HAVE ANY RASHES OR OPEN SORES? NO . ALLERGIC/IMMUNO: ARE YOU ALLERGIC TO IV DYE? NO . ANY NEW ALLERGIES? NO . PSYCHIATRIC: DO YOU HAVE THOUGHTS OF HURTING YOURSELF OR SOMEONE ELSE? NO . ARE YOU ABUSED, NEGLECTED, OR IN AN UNSAFE ENVIRONMENT? NO . ENDOCRINOLOGY: ARE YOU DIABETIC? NO . OTHER: DO YOU NEED ANY PRESCRIPTIONS? REFILL ON MEDICATIONS . IF YES, PLEASE LIST: ____ . ANY NEW PROBLEMS WITH YOUR MEDICATIONS? NO . WHEN DID YOU LAST EAT? ____ . WHEN DID YOU LAST DRINK? ____ . WHAT DID YOU LAST DRINK? ____ . NAME OF PERSON DRIVING YOU HOME? ____ . DO YOU HAVE ANY OTHER QUESTIONS OR CONCERNS PT STATES THAT SHE IS HAVING ISSUES WITH INSOMNIA, USED SEVERAL OTC FOR HELP WITH SLEEP WITH NO SUCCESS . VITAL SIGNS WT 228.0 LBS, HT 62 1/2, BMI 41.03 INDEX, BP 131/62 MM HG, HR 89 /MIN, RR 18 /MIN, TEMP 97.7 F, OXYGEN SAT % 95%, SAFE IN ENV? (Y/N) Y, NA INITIALS CM 1421, REVIEWED BY: CAMPBELL. EXAMINATION GENERAL EXAMINATION: LUNGS:LUNG SOUNDS ARE CLEAR. HEART:HEART RATE REGULAR. MUSCULOSKELETAL:*, MUSCLE STRENGTH TESTING 5/5 BILATERAL LOWER LEGS , PALPATION: POSITIVE FOR PAIN OVER L/S SPINE. POSITIVE FOR PAIN OVER L/S PARSPINALS. ASSESSMENTS CHRONIC BILATERAL LOW BACK PAIN WITHOUT SCIATICA - M54.5 (PRIMARY) TREATMENT CHRONIC BILATERAL LOW BACK PAIN WITHOUT SCIATICA REFILL AMITRIPTYLINE HCL TABLET, 25 MG, 2, ORALLY, ONCE A DAY FOR PAIN MDD2, 30 DAY(S), 60, REFILLS 2 REFILL CYMBALTA CAPSULE DELAYED RELEASE PARTICLES, 60 MG, 1 CAPSULE, ORALLY, ONCE A DAY FOR PAIN, 30 DAY(S), 30, REFILLS 2, NOTES: W/C REFILL CYCLOBENZAPRINE HCL TABLET, 10 MG, 1 TABLET, ORALLY, Q8H PRN, 30 DAY(S), 90, REFILLS 2 REFILL GABAPENTIN CAPSULE, 300 MG, 1 CAPSULE, ORALLY, BID, 30 DAY(S), 60 CAPSULE, REFILLS 2 REFILL OXYCODONE-ACETAMINOPHEN TABLET, 7.5-325 MG, 1, ORALLY, EVERY 4-6 HR PRNMDD5, 20 DAYS, 100, REFILLS 0 REFILL NUCYNTA ER TABLET EXTENDED RELEASE 12 HOUR, 150 MG, 1 TABLET (CODE D FOR CHRONIC PAIN), ORALLY, BID MDD2, 20 DAYS, 40, REFILLS 0 NOTES: ISTOP REGISTRY REVIEWED AND DEMONSTRATES COMPLLIANCE. BRINGS IN MEDICATIONS WHICH IS APPROPRIATE FOR WHAT WAS DISPENSED. RECENT URINE TOXICOLOGY REVIEWED. NO UNAUTHORIZED MEDICATIONS. NO ILLICIT SUBSTANCES AND PRESCRIBED MEDICATIONS WERE PRESENT. , RISKS AND BENEFITS OF NARCOTIC/OPIOD MEDICATIONS WERE REVIEWED WITH PATIENT - THIS INCLUDES BUT IS NOT LIMITED TO RISK OF DEPENDANCE/DEVELOPMENT OF ADDICTION, MOOD DISTURBANCE AND DEPRESSION, OSTEOPOROSIS, HORMONAL AND LABIDAL CHANGES, RESPIRATORY DEPRESSION AND . PATIENT IS ADVISED NOT TO DRIVE OR DRINK ALCOHOL WHILE ON THESE MEDICATIONS. PROCEDURES PN WORKMANS' COMP OPINION IN YOUR OPINION, WAS THE INCIDENT THAT THE PATIENT DESCRIBED THE COMPETENT MEDICAL CAUSE OF THIS INJURY/ILLNESS? YES ARE THE PATIENT'S COMPLAINTS CONSISTENT WITH HIS/HER HISTORY OF THE INJURY/ILLNESS? YES IS THE PATIENT'S HISTORY OF THE INJURY/ILLNESS CONSISTENT WITH YOUR OBJECTIVE FINDING? YES WHAT IS THE PERCENTAGE OF TEMPORARY IMPAIRMENT? MODERATE TO MARKED = 66.7% IS THE PATIENT WORKING? NO DOCTOR ON SITE: LEOPOLDO ESPINOZA MD PROCEDURE CODES FA211 ESTABILISHED PATIENT [facility] FACILITY CHARGE DISPOSITION & COMMUNICATION FOLLOW UP 3 MONTHS ELECTRONICALLY SIGNED BY ISRAEL MESSINA ON 12/25/2018 AT 01:14 PM EDT DISCLAIMER : THIS IS A VISIT SUMMARY EXTRACTED FROM THE [employer] CHART. IT IS NOT A COPY OF THE [employer] PROGRESS NOTE. CHRISTAL
== END ==
LOC: M PAIN 14:15
PROVIDERS: ATTEND Nurse Practitioner Family
DX: M54.5 Low back pain (principal); G89.29 Other chronic pain; Z86.59 Personal history of other mental and behavioral disorders; Z98.84 Bariatric surgery status; Z88.8 Allergy status to other drugs, medicaments and biological substances; E66.01 Morbid (severe) obesity due to excess calories; Z68.41 Body mass index [BMI] 40.0-44.9, adult; Z79.891 Long term (current) use of opiate analgesic; Z79.899 Other long term (current) drug therapy

== ENCOUNTER 2019-06-01 09:44 | Day surgery (SDC) | payer OTHER ==
[~2019-06-01] VITALS: Ht 154.9 cm; Wt 102.7 kg
[2019-06-01] MEDS: NS 1,000 ML IV ONE (07:45)
[~2019-06-01 09:44] MED LIST changes: -DULO1CAP3 PO; +DULO1CAP6 PO; +HYDR-3910 PO; +LASI40TA9 PO; +MELA10TA6 PO; -OMEP20CA3 PO; +OMEP20CA4 PO; +VENTAER INH
[2019-06-01] MEDS ORDERED: fentaNYL 100 MCG/2 ML INJECTION (J3010) As Ordered ONE (10:28)
[2019-06-01] MEDS ORDERED: PROPOFOL 500 MG/50 ML VIAL As Ordered ONE (10:29)
[2019-06-01] MEDS ORDERED: LIDOCAINE 2% INJ 100 MG/5 ML SDV (FOR ANES.) As Ordered ONE (10:29)
--- NOTE | 2019-06-01 11:54 | ROOR ---
Patient Name: Ary Putnam Procedure Date: 06/01/2019 11:39 AM Date of : 1965 Age: 53 Room: [facility] Gender: Female Note Status: Finalized Procedure: Upper Endoscopy + Biopsies Indications: Heartburn, Exclusion of Vang's esophagus Providers: Tyron Payton MD Referring MD: BISI BROWN NP Requesting Provider: Medicines: Monitored Anesthesia Care Complications: No immediate complications. Procedure: Pre-Anesthesia Assessment: - The heart rate, respiratory rate, oxygen saturations, blood pressure, adequacy of pulmonary ventilation, and response to care were monitored throughout the procedure. The Endoscope was introduced through the mouth, and advanced to the second part of duodenum. The upper GI endoscopy was accomplished without difficulty. The patient tolerated the procedure well. Findings: The Z-line was irregular and was found 35 cm from the incisors. Multiple biopsies were obtained with cold forceps for evaluation to rule out Vang's Esophagus randomly at the gastroesophageal junction. Evidence of a gastric bypass was found. A gastric pouch with a small size was found. The staple line appeared intact. The gastrojejunal anastomosis was characterized by healthy appearing mucosa. This was traversed. The eeuqp-lk-muyaris limb was characterized by healthy appearing mucosa. The exam was otherwise without abnormality. Impression: - Z-line irregular, 35 cm from the incisors. - Gastric bypass with a small-sized pouch and intact staple line. Gastrojejunal anastomosis characterized by healthy appearing mucosa. - The examination was otherwise normal. - Multiple biopsies were obtained at the gastroesophageal junction. - The examination was otherwise normal. Recommendation: - Patient has a contact number available for emergencies. The signs and symptoms of potential delayed complications were discussed with the patient. Return to normal activities tomorrow. Written discharge instructions were provided to the patient. - Resume previous diet. - Discharge patient to home. - Continue present medications. - Await pathology results. - Telephone GI clinic for pathology results in 1 week. - Return to referring physician. - The findings and recommendations were discussed with the patient's family. Tyron Payton MD Tyron Payton MD 06/01/2019 11:54:12 AM Electronically signed by Tyron Payton MD Number of Addenda: 0 Note Initiated On: 06/01/2019 11:39 AM Estimated Blood Loss: Estimated blood loss: none.
[2019-06-01] MEDS ORDERED: PROPOFOL 200 MG/20 ML VIAL As Ordered ONE (12:06)
--- NOTE | 2019-06-01 12:13 | ROOR ---
Patient Name: Ary Putnam Procedure Date: 06/01/2019 11:40 AM Date of : 1965 Age: 53 Room: [facility] Gender: Female Note Status: Finalized Procedure: Total Colonoscopy to Cecum Indications: Screening for colorectal malignant neoplasm Providers: Tyron Payton MD Referring MD: BISI BROWN NP Requesting Provider: Medicines: Monitored Anesthesia Care Complications: No immediate complications. Procedure: Pre-Anesthesia Assessment: - The heart rate, respiratory rate, oxygen saturations, blood pressure, adequacy of pulmonary ventilation, and response to care were monitored throughout the procedure. The Colonoscope was introduced through the anus and advanced to the cecum, identified by appendiceal orifice and ileocecal valve. The colonoscopy was performed without difficulty. The patient tolerated the procedure well. The quality of the bowel preparation was fair. Findings: The perianal and digital rectal examinations were normal. Non-bleeding internal hemorrhoids were found during retroflexion. The hemorrhoids were small and Grade I (internal hemorrhoids that do not prolapse). No other significant abnormalities were identified in a careful examination of the remainder of the colon. The exam was otherwise without abnormality. Impression: - Preparation of the colon was fair. - Non-bleeding internal hemorrhoids. - The examination was otherwise normal. - No specimens collected. - The exam was otherwise normal to the cecum. Recommendation: - Patient has a contact number available for emergencies. The signs and symptoms of potential delayed complications were discussed with the patient. Return to normal activities tomorrow. Written discharge instructions were provided to the patient. - High fiber diet. - Discharge patient to home. - Continue present medications. - Repeat colonoscopy in 10 years for screening purposes. - Return to referring physician. - The findings and recommendations were discussed with the patient's family. Tyron Payton MD Tyron Payton MD 06/01/2019 12:12:57 PM Electronically signed by Tyron Payton MD Number of Addenda: 0 Note Initiated On: 06/01/2019 11:40 AM Estimated Blood Loss: Estimated blood loss: none.
[2019-06-01 12:30] VITALS: BP 130/60
== END 2019-06-01 12:38 | disposition home or self-care (01) ==
LOC: M OPP 09:44
PROVIDERS: ATTEND Internal Medicine Gastroenterology
DX: Z12.11 Encounter for screening for malignant neoplasm of colon (principal); K64.0 First degree hemorrhoids; K22.8 Other specified diseases of esophagus; Z98.84 Bariatric surgery status; R12 Heartburn; R13.10 Dysphagia, unspecified; Z79.891 Long term (current) use of opiate analgesic; Z79.899 Other long term (current) drug therapy; Z88.8 Allergy status to other drugs, medicaments and biological substances; Z91.013 Allergy to seafood
CPT/HCPCS: 43239; 45378; 88305; J3010

== ENCOUNTER → 2019-07-01 | Outpatient (CLI) | payer OTHER ==
--- NOTE | 2019-07-03 00:35 | ECWPNPC ---
PATIENT NAME: CINDI MARIE : 1965 GENDER: FEMALE VISIT DATE: 07/01/2019 DISCHARGE DATE: 07/01/19 1507 VISIT LOCKED DATE TIME: PHYSICIAN: HEMALATHA HERNANDEZ RESOURCE: HEMALATHA HERNANDEZ REASON FOR APPOINTMENT 1. WC MEDICATION MANAGEMENT HISTORY OF PRESENT ILLNESS HISTORY OF PRESENT ILLNESS: PAIN THE PATIENT DESCRIBES THE PAIN... THE PATIENT DESCRIBES THE PAIN... THE PATIENT DESCRIBES THE PAIN... THE PATIENT DESCRIBES THE PAIN... THE PATIENT DESCRIBES THE PAIN... THE PATIENT DESCRIBES THE PAIN... THE PATIENT DESCRIBES THE PAIN... THE PATIENT DESCRIBES THE PAIN... THE PATIENT DESCRIBES THE PAIN... THE PATIENT DESCRIBES THE PAIN... THE PATIENT DESCRIBES THE PAIN... THE PATIENT DESCRIBES THE PAIN... THE PATIENT DESCRIBES THE PAIN... THE PATIENT DESCRIBES THE PAIN... THE PATIENT DESCRIBES THE PAIN... THE PATIENT DESCRIBES THE PAIN... THE PATIENT DESCRIBES THE PAIN... 53-YEAR-OLD FEMALE IN FOR WORKER'S COMP. CHRONIC PAIN FOLLOW-UP. SHE RATES HER PAIN CURRENTLY AT A 6 OUT OF 10 AND DESCRIBES IT SHARP, SORE, AND TENDER. SHE FURTHER STATES THE PAIN IS CONTINUOUS. SHE HAS BEEN HAVING DIFFICULTIES WITH WORKMEN'S COMP. THEY ARE REFUSING TO COVER HER MEDICATIONS CURRENTLY. PATIENT WAS HURT IN A WORK RELATED INJURY WHILE WORKING AT [employer] ON 04/03/2003. PATIENT IS CURRENTLY USING NUCYNTA, CYMBALTA, OXYCODONE, AND AMITRIPTYLINE AND THE PATIENT REPORTS THAT THE MEDICATIONS KEEP HER MOBILE AND FUNCTIONAL. FALL RISK SCREENING: SCREENING :NO FALLS REPORTED IN THE LAST YEAR CURRENT MEDICATIONS TAKING CLARITIN 10 MG TABLET 1 TABLET ORALLY ONCE A DAY TAKING FUROSEMIDE 40 MG TABLET 1 TABLET ORALLY ONCE A DAY PRN TAKING OMEPRAZOLE 40 MG CAPSULE DELAYED RELEASE 1 CAP ORALLY ONCE A DAY TAKING VITAMIN C 250 MG TABLET 4 TABLET ORALLY ONCE A DAY TAKING CALCIUM 500 + D 500-125 MG-UNIT TABLET 2 TABLET WITH FOOD ORALLY ONCE A DAY TAKING VITAMIN B-12 1000 MCG TABLET SUBLINGUAL 1 TABLET UNDER THE TONGUE AND ALLOW TO DISSOLVE SUBLINGUAL ONCE A DAY TAKING CYCLOBENZAPRINE HCL 10 MG TABLET 1 TABLET ORALLY Q8H PRN TAKING AMITRIPTYLINE HCL 25 MG TABLET 2 ORALLY ONCE A DAY FOR PAIN MDD2 TAKING GABAPENTIN 300 MG CAPSULE 1 CAPSULE ORALLY BID TAKING NUCYNTA ER 150 MG TABLET EXTENDED RELEASE 12 HOUR 1 TABLET (CODE D FOR CHRONIC PAIN) ORALLY BID MDD2 TAKING OXYCODONE-ACETAMINOPHEN 7.5-325 MG TABLET 1 ORALLY EVERY 4-6 HR PRNMDD5 TAKING CYMBALTA 60 MG CAPSULE DELAYED RELEASE PARTICLES 1 CAPSULE ORALLY ONCE A DAY FOR PAIN, NOTES: W/C NOT-TAKING CYMBALTA 30 MG CAPSULE DELAYED RELEASE PARTICLES 1 CAPSULE ORALLY ONCE A DAY WITH 60MG TAB NOT-TAKING PATITO-E 400 MG TABLET 600MG ORALLY DAILY MEDICATION LIST REVIEWED AND RECONCILED WITH THE PATIENT PAST MEDICAL HISTORY HX OF OBESITY DEPRESSION BACK INJURY 2002 PLANTAR FASCITIS ALLERGIES LYRICA: SWELLING - SIDE EFFECTS SURGICAL HISTORY GASTRIC BYPASS APPENDECTOMY LT KNEE X2 GASTRIC BYPASS REVISION 07/2016 CHOLECYSTECTOMY 2017 LEFT EYE LASER SUR[address]ERY [address] WILBURN 05/20/2018 FAMILY HISTORY FATHER: , DIAGNOSED WITH UNSPECIFIED HEART DISEASE MOTHER: 1 BROTHER(S) , 2 SISTER(S) . MOM-LUNG ISSUES, BROTHER - WITH ISSUES RELATED TO DM AND POST SURGICAL EMBOLI. SISTER- FROM DIABETIC SEIZURE/COMA. SOCIAL HISTORY GENERAL: TOBACCO USE ARE YOU A:NONSMOKER PAIN CLINIC PFS, CLERGY, PUBLIC HEALTH REFERRALS PFS REFERRAL NEEDED?NO CLERGY REFERRAL NEEDED?NO PUBLIC HEALTH REFERRAL NEEDED?NO WAS THE PROVIDER NOTIFIED OF ANY PERTINENT INFO?YES N/A HAS THE PATIENT BEEN EDUCATED REGARDING HIS/HER PLAN OF CARE?YES HAS THE PATIENT BEEN EDUCATED REGARDING PAIN, THE RISK FOR PAIN, THE IMPORTANCE OF EFFECTIVE PAIN MANAGEMENT, AND THE PAIN ASSESSMENT PROCESS?YES LATEX QUESTIONNAIRE LATEX ALLERGY : HAVE YOU EVER DEVELOPED ANY TYPE OF REACTION AFTER HANDLING LATEX PRODUCTS SUCH RUBBER GLOVES, CONDOMS, DIAPHRAGMS, BALLOONS, SOCKS, OR UNDERWEAR?NO LATEX ALLERGY : HAVE YOU EVER DEVELOPED ANY TYPE OF REACTION DURING OR AFTER DENTAL APPOINTMENT, VAGINAL/RECTAL EXAMINATION, SURGICAL PROCEDURE, OR ANY OTHER EXPOSURE?NO LATEX RISK : HAVE YOU EVER HAD ANY DIFFICULTY BREATHING OR HIVES AFTER EATING OR HANDLING ANY FRUITS, OR VEGETABLES; SUCH KIWI, BANANAS, STONE FRUITS, OR CHESTNUTSNO LATEX RISK : DO YOU HAVE A PREVIOUS PERSONAL HISTORY OF MORE THAN NINE SURGERIES, SPINA BIFIDA, OR REPEATED CATHERIZATIONS? NO LATEX RISK : ARE YOU FREQUENTLY EXPOSED TO LATEX PRODUCTS IN YOUR OCCUPATION?NO DATE ASKED : 12/11/2018 CAFFEINE CAFFEINE USE?YES HOW OFTEN AND HOW MUCH? 1-2 SODAS/DAY, OCC. COFFEE ADVANCE DIRECTIVE ADVANCE DIRECTIVE DISCUSSED WITH PATIENT:YES PATIENT DECLINED HCP INFORMATION, PT DECLINED ASSISTANCE WITH FILLING OUT HCP. EDUCATION LEVEL OF EDUCATION:HIGH SCHOOL ALSO TRADE SCHOOL [employer]NA[id number] WORSHIP LANGUAGE LANGUAGES SPOKEN:SENEGALESE DOMESTIC VIOLENCE DO YOU FEEL SAFE IN YOUR ENVIRONMENT?YES ALCOHOL SCREENING DID YOU HAVE A DRINK CONTAINING ALCOHOL IN THE PAST YEAR?NO POINTS0 INTERPRETATIONNEGATIVE RECREATIONAL DRUG USE DRUG USE?NO LEARNING BARRIERS / SPECIAL NEEDS BARRIERS TO LEARNING?NO HEARING IMPAIRED?NO VISION IMPAIRED?YES COGNITIVELY IMPAIRED?NO :CORRECTIVE LENSES READINESS TO LEARN?YES LEARNING PREFERENCES?NO LEARNING CAPABILITIES PRESENT?YES EMOTIONAL BARRIERS?NO SPECIAL DEVICES?NO TURBINE ENGINE ASSEMBLER NEEDED?NO REVIEWED WITH PATIENT 09/12/18 1454 JSREVIEWED WITH PATIENT 07/01/19 1439 JS. HOSPITALIZATION/MAJOR DIAGNOSTIC PROCEDURE PAIN RIGHT SIDE 03/25 SURGERIES REVIEW OF SYSTEMS REVIEWED BY: PROVIDER: SANDEEP HAWKINS . CONSTITUTIONAL: ANY CHANGE IN YOUR MEDICAL CONDITION? NO . CHILLS NO . FEVER NO . INFECTION: DO YOU HAVE NEW INFECTIONS? NO . DO YOU HAVE HISTORY OF MRSA? NO . MUSCULOSKELETAL: ANY NEW PATTERNS OF PAIN OR NUMBNESS? NO . GASTROENTEROLOGY: ANY NEW CHANGE IN BOWEL CONTROL? NO . GENITOURINARY: ANY NEW CHANGE IN BLADDER CONTROL? NO . IS THERE A CHANCE YOU COULD BE ? NO . HEMATOLOGY/LYMPH: DO YOU TAKE ANY BLOOD THINNERS? (FOR EXAMPLE- COUMADIN, PLAVIX, AGGRENOX, PLATEL, PRADAXA, OR XARELTO) NO . WHEN WAS YOUR LAST DOSE? DATE: TIME: . NEUROLOGY: HAVE YOU FALLEN IN THE PAST 12 MONTHS? YES, STATES FALL THE OTHER DAY, SLIPPED AND PARTIALLY CAUGHT HERSELF ON THE RAILING, STATES BRUISE TO RIGHT SIDE. ALSO HER LEGS WENT THROUGH THE STEP. STATES SHE DIDN'T HIT HER HEAD, NO ED VISIT, NO IMAGING . ANY NEW EXTREMITY NUMBNESS OR WEAKNESS? NO . CARDIOLOGY: DO YOU HAVE A PACEMAKER OR DEFIBRILLATOR? NO . RESPIRATORY: HAVE YOU BEEN SICK IN THE PAST WEEK? NO . FEVER NO . FLU LIKE SYMPTOMS? NO . COUGH NO . INTEGUMENTARY: DO YOU HAVE ANY RASHES OR OPEN SORES? NO . ALLERGIC/IMMUNO: ARE YOU ALLERGIC TO IV DYE? NO . ANY NEW ALLERGIES? NO . PSYCHIATRIC: DO YOU HAVE THOUGHTS OF HURTING YOURSELF OR SOMEONE ELSE? NO . ARE YOU ABUSED, NEGLECTED, OR IN AN UNSAFE ENVIRONMENT? NO . ENDOCRINOLOGY: ARE YOU DIABETIC? NO . OTHER: DO YOU NEED ANY PRESCRIPTIONS? YES . IF YES, PLEASE LIST: ____NUCYNTA . ANY NEW PROBLEMS WITH YOUR MEDICATIONS? NO . WHEN DID YOU LAST EAT? ____ . WHEN DID YOU LAST DRINK? ____ . WHAT DID YOU LAST DRINK? ____ . NAME OF PERSON DRIVING YOU HOME? ____ . DO YOU HAVE ANY OTHER QUESTIONS OR CONCERNS NO . VITAL SIGNS WT 226 LBS, HT 62 1/2, BMI 40.67 INDEX, BP 134/75 MM HG, HR 88 /MIN, RR 18 /MIN, TEMP 98.9 F, OXYGEN SAT % 97%, SAFE IN ENV? (Y/N) YES, NA INITIALS CT 14:36, REVIEWED BY: RUSSELL. EXAMINATION GENERAL EXAMINATION: GENERALNO ACUTE DISTRESS, WELL NOURISHED AND HYDRATED. PSYCHAPPROPRIATE MOOD AND AFFECT . LUNGS:CLEAR TO AUSCULTATION BILATERALLY, NO WHEEZES, RHONCHI, RALES. HEART:NO MURMURS, REGULAR RATE AND RHYTHM. ASSESSMENTS CHRONIC BILATERAL LOW BACK PAIN WITHOUT SCIATICA - M54.5 (PRIMARY) TREATMENT CHRONIC BILATERAL LOW BACK PAIN WITHOUT SCIATICA REFILL NUCYNTA ER TABLET EXTENDED RELEASE 12 HOUR, 150 MG, 1 TABLET (CODE D FOR CHRONIC PAIN), ORALLY, BID MDD2, 15 DAYS, 30, REFILLS 0 CLINICAL NOTES: 53-YEAR-OLD FEMALE IN FOR WORKER'S COMP. CHRONIC PAIN FOLLOW-UP. GIVEN PRESENTING SYMPTOMS AND RESULTS OF PHYSICAL EXAMINATION RECOMMENDED REFILLING NUCYNTA AND FOLLOW-UP IN 2 MONTHS. DISCUSSED WORKER'S COMP. COMPLICATIONS WITH PATIENT AND INFORMED HER THAT WE WOULD DISCUSS HER CASE WITH HER ADJUSTOR REGARDING HER MEDICATIONS. PATIENT HAS EXPRESSED UNDERSTANDING OF AND WAS IN AGREEMENT WITH TREATMENT PLAN. GIVEN TIME TO ASK QUESTIONS AND EXPRESS CONCERNS., ISTOP REGISTRY REVIEWED AND DEMONSTRATES COMPLLIANCE. (REF # [id number] TO ) BRINGS IN MEDICATIONS WHICH IS APPROPRIATE FOR WHAT WAS DISPENSED. RECENT URINE TOXICOLOGY REVIEWED. NO UNAUTHORIZED MEDICATIONS. NO ILLICIT SUBSTANCES AND PRESCRIBED MEDICATIONS WERE PRESENT. PROCEDURES PN WORKMANS' COMP OPINION IN YOUR OPINION, WAS THE INCIDENT THAT THE PATIENT DESCRIBED THE COMPETENT MEDICAL CAUSE OF THIS INJURY/ILLNESS? YES ARE THE PATIENT'S COMPLAINTS CONSISTENT WITH HIS/HER HISTORY OF THE INJURY/ILLNESS? YES IS THE PATIENT'S HISTORY OF THE INJURY/ILLNESS CONSISTENT WITH YOUR OBJECTIVE FINDING? YES WHAT IS THE PERCENTAGE OF TEMPORARY IMPAIRMENT? MODERATE TO MARKED = 66.7% IS THE PATIENT WORKING? NO DOCTOR ON SITE: LEOPOLDO ESPINOZA MD PROCEDURE CODES FA211 ESTABILISHED PATIENT [facility] CHARGE DISPOSITION & COMMUNICATION FOLLOW UP 2 MONTHS (REASON: WORKER'S COMP. CHRONIC PAIN) ELECTRONICALLY SIGNED BY ISRAEL LOPEZ ON 07/02/2019 AT 09:18 AM EDT DISCLAIMER : THIS IS A VISIT SUMMARY EXTRACTED FROM THE [employer] CHART. IT IS NOT A COPY OF THE [employer] PROGRESS NOTE. CHRISTAL
== END ==
LOC: M PAIN 14:15
PROVIDERS: ATTEND Family Medicine
DX: M54.5 Low back pain (principal); G89.29 Other chronic pain; Z86.59 Personal history of other mental and behavioral disorders; Z98.84 Bariatric surgery status; Z88.8 Allergy status to other drugs, medicaments and biological substances; E66.01 Morbid (severe) obesity due to excess calories; Z68.41 Body mass index [BMI] 40.0-44.9, adult; Z79.891 Long term (current) use of opiate analgesic; Z79.899 Other long term (current) drug therapy

== ENCOUNTER → 2019-08-20 | Outpatient (CLI) | payer OTHER ==
[~2019-08-20] MED LIST changes: +OMEP-172 PO; -OMEP20CA4 PO
--- NOTE | 2019-08-22 04:29 | ECWPNPC ---
PATIENT NAME: CINDI MARIE : 1965 GENDER: FEMALE VISIT DATE: 08/20/2019 DISCHARGE DATE: 08/20/19 1548 VISIT LOCKED DATE TIME: PHYSICIAN: HEMALATHA HERNANDEZ RESOURCE: HEMALATHA HERNANDEZ REASON FOR APPOINTMENT 1. 2 MONTHS, W/C HISTORY OF PRESENT ILLNESS HISTORY OF PRESENT ILLNESS: PAIN THE PATIENT DESCRIBES THE PAIN... 53-YEAR-OLD FEMALE IN FOR WORK[employer]u COMP. CHRONIC PAIN FOLLOW-UP. SHE RATES HER PAIN CURRENTLY AT A 2-3 OUT OF 10 AND DESCRIBES IT SHARP, SORE, AND TENDER. SHE FURTHER STATES THE PAIN IS CONTINUOUS. AT A RECENT CLINIC VISIT THE PATIENT REPORTED INCREASED PAIN BECAUSE COMP WAS REFUSING TO COVER HER MEDICATIONS WHICH EXACERBATED HER SYMPTOMS. SHE IS CURRENTLY ON HER MEDICATIONS AND FEELS THEY ARE WORKING WELL TO MANAGE HER SYMPTOMS. SHE REPORTS INCREASED ABILITY TO DO HOUSEWORK, AND DRIVE WITH THE USE OF HER MEDICATIONS. PATIENT WAS HURT IN A WORK RELATED INJURY WHILE WORKING AT [employer] ON 04/03/2003. PATIENT IS CURRENTLY USING NUCYNTA, CYMBALTA, OXYCODONE, AND AMITRIPTYLINE AND THE PATIENT REPORTS THAT THE MEDICATIONS KEEP HER MOBILE AND FUNCTIONAL. FALL RISK SCREENING: SCREENING :NO FALLS REPORTED IN THE LAST YEAR CURRENT MEDICATIONS TAKING CLARITIN 10 MG TABLET 1 TABLET ORALLY ONCE A DAY TAKING FUROSEMIDE 40 MG TABLET 1 TABLET ORALLY ONCE A DAY PRN TAKING OMEPRAZOLE 40 MG CAPSULE DELAYED RELEASE 1 CAP ORALLY ONCE A DAY TAKING VITAMIN C 250 MG TABLET 4 TABLET ORALLY ONCE A DAY TAKING CALCIUM 500 + D 500-125 MG-UNIT TABLET 2 TABLET WITH FOOD ORALLY ONCE A DAY TAKING VITAMIN B-12 1000 MCG TABLET SUBLINGUAL 1 TABLET UNDER THE TONGUE AND ALLOW TO DISSOLVE SUBLINGUAL ONCE A DAY TAKING CYCLOBENZAPRINE HCL 10 MG TABLET 1 TABLET ORALLY Q8H PRN TAKING GABAPENTIN 300 MG CAPSULE 1 CAPSULE ORALLY BID TAKING CYMBALTA 60 MG CAPSULE DELAYED RELEASE PARTICLES 1 CAPSULE ORALLY ONCE A DAY FOR PAIN, NOTES: W/C TAKING CYMBALTA 60 MG CAPSULE DELAYED RELEASE PARTICLES 1 CAPSULE ORALLY ONCE A DAY TAKING NUCYNTA ER 150 MG TABLET EXTENDED RELEASE 12 HOUR 1 TABLET (CODE D FOR CHRONIC PAIN) ORALLY BID MDD2 TAKING OXYCODONE-ACETAMINOPHEN 7.5-325 MG TABLET 1 ORALLY EVERY 4-6 HR PRNMDD5 TAKING AMITRIPTYLINE HCL 25 MG TABLET 2 ORALLY ONCE A DAY FOR PAIN MDD2 NOT-TAKING CYMBALTA 30 MG CAPSULE DELAYED RELEASE PARTICLES 1 CAPSULE ORALLY ONCE A DAY WITH 60MG TAB NOT-TAKING PATITO-E 400 MG TABLET 600MG ORALLY DAILY MEDICATION LIST REVIEWED AND RECONCILED WITH THE PATIENT PAST MEDICAL HISTORY HX OF OBESITY DEPRESSION BACK INJURY 2002 PLANTAR FASCITIS ALLERGIES LYRICA: SWELLING - SIDE EFFECTS SURGICAL HISTORY GASTRIC BYPASS APPENDECTOMY LT KNEE X2 GASTRIC BYPASS REVISION 07/2016 CHOLECYSTECTOMY 2017 LEFT EYE LASER SURGERY DR. WILBURN 05/20/2018 FAMILY HISTORY FATHER: , DIAGNOSED WITH UNSPECIFIED HEART DISEASE MOTHER: 1 BROTHER(S) , 2 SISTER(S) . MOM-LUNG ISSUES, BROTHER - WITH ISSUES RELATED TO DM AND POST SURGICAL EMBOLI. SISTER- FROM DIABETIC SEIZURE/COMA. SOCIAL HISTORY GENERAL: TOBACCO USE ARE YOU A:NONSMOKER PAIN CLINIC PFS, CLERGY, PUBLIC HEALTH REFERRALS PFS REFERRAL NEEDED?NO CLERGY REFERRAL NEEDED?NO PUBLIC HEALTH REFERRAL NEEDED?NO WAS THE PROVIDER NOTIFIED OF ANY PERTINENT INFO?YES N/A HAS THE PATIENT BEEN EDUCATED REGARDING HIS/HER PLAN OF CARE?YES HAS THE PATIENT BEEN EDUCATED REGARDING PAIN, THE RISK FOR PAIN, THE IMPORTANCE OF EFFECTIVE PAIN MANAGEMENT, AND THE PAIN ASSESSMENT PROCESS?YES LATEX QUESTIONNAIRE LATEX ALLERGY : HAVE YOU EVER DEVELOPED ANY TYPE OF REACTION AFTER HANDLING LATEX PRODUCTS SUCH RUBBER GLOVES, CONDOMS, DIAPHRAGMS, BALLOONS, SOCKS, OR UNDERWEAR?NO LATEX ALLERGY : HAVE YOU EVER DEVELOPED ANY TYPE OF REACTION DURING OR AFTER DENTAL APPOINTMENT, VAGINAL/RECTAL EXAMINATION, SURGICAL PROCEDURE, OR ANY OTHER EXPOSURE?NO LATEX RISK : HAVE YOU EVER HAD ANY DIFFICULTY BREATHING OR HIVES AFTER EATING OR HANDLING ANY FRUITS, OR VEGETABLES; SUCH KIWI, BANANAS, STONE FRUITS, OR CHESTNUTSNO LATEX RISK : DO YOU HAVE A PREVIOUS PERSONAL HISTORY OF MORE THAN NINE SURGERIES, SPINA BIFIDA, OR REPEATED CATHERIZATIONS? NO LATEX RISK : ARE YOU FREQUENTLY EXPOSED TO LATEX PRODUCTS IN YOUR OCCUPATION?NO DATE ASKED : 08/20/2019 CAFFEINE CAFFEINE USE?YES HOW OFTEN AND HOW MUCH? 1-2 SODAS/DAY, OCC. COFFEE ADVANCE DIRECTIVE ADVANCE DIRECTIVE DISCUSSED WITH PATIENT:YES PATIENT DECLINED HCP INFORMATION, PT DECLINED ASSISTANCE WITH FILLING OUT HCP. EDUCATION LEVEL OF EDUCATION:HIGH SCHOOL ALSO TRADE S[employer]OL [id number] ROMAN CATHOLIC LANGUAGE LANGUAGES SPOKEN:[place] CITIZEN DOMESTIC VIOLENCE DO YOU FEEL SAFE IN YOUR ENVIRONMENT?YES ALCOHOL SCREENING DID YOU HAVE A DRINK CONTAINING ALCOHOL IN THE PAST YEAR?NO POINTS0 INTERPRETATIONNEGATIVE RECREATIONAL DRUG USE DRUG USE?NO LEARNING BARRIERS / SPECIAL NEEDS BARRIERS TO LEARNING?NO HEARING IMPAIRED?NO VISION IMPAIRED?YES COGNITIVELY IMPAIRED?NO :CORRECTIVE LENSES READINESS TO LEARN?YES LEARNING PREFERENCES?NO LEARNING CAPABILITIES PRESENT?YES EMOTIONAL BARRIERS?NO SPECIAL DEVICES?NO DIRECTOR OF DIRECT MARKETING NEEDED?NO REVIEWED WITH PATIENT 09/12/18 1454 JSREVIEWED WITH PATIENT 07/01/19 1439 JSREVIEWED WITH PATIENT 08-20-19 DS. HOSPITALIZATION/MAJOR DIAGNOSTIC PROCEDURE PAIN RIGHT SIDE 03/25 SURGERIES REVIEW OF SYSTEMS REVIEWED BY: PROVIDER: SANDEEP HERNANDEZ CROSSING GUARD-C . CONSTITUTIONAL: ANY CHANGE IN YOUR MEDICAL CONDITION? NO . CHILLS NO . FEVER NO . INFECTION: DO YOU HAVE NEW INFECTIONS? NO . DO YOU HAVE HISTORY OF MRSA? NO . MUSCULOSKELETAL: ANY NEW PATTERNS OF PAIN OR NUMBNESS? NO . GASTROENTEROLOGY: ANY NEW CHANGE IN BOWEL CONTROL? NO . GENITOURINARY: ANY NEW CHANGE IN BLADDER CONTROL? NO . IS THERE A CHANCE YOU COULD BE ? NO . HEMATOLOGY/LYMPH: DO YOU TAKE ANY BLOOD THINNERS? (FOR EXAMPLE- COUMADIN, PLAVIX, AGGRENOX, PLATEL, PRADAXA, OR XARELTO) NO . WHEN WAS YOUR LAST DOSE? DATE: TIME: . NEUROLOGY: HAVE YOU FALLEN IN THE PAST 12 MONTHS? YES, . ANY NEW EXTREMITY NUMBNESS OR WEAKNESS? NO . CARDIOLOGY: DO YOU HAVE A PACEMAKER OR DEFIBRILLATOR? NO . RESPIRATORY: HAVE YOU BEEN SICK IN THE PAST WEEK? NO . FEVER NO . FLU LIKE SYMPTOMS? NO . COUGH NO . INTEGUMENTARY: DO YOU HAVE ANY RASHES OR OPEN SORES? NO . ALLERGIC/IMMUNO: ARE YOU ALLERGIC TO IV DYE? NO . ANY NEW ALLERGIES? NO . PSYCHIATRIC: DO YOU HAVE THOUGHTS OF HURTING YOURSELF OR SOMEONE ELSE? NO . ARE YOU ABUSED, NEGLECTED, OR IN AN UNSAFE ENVIRONMENT? NO . ENDOCRINOLOGY: ARE YOU DIABETIC? NO . OTHER: DO YOU NEED ANY PRESCRIPTIONS? YES, OXYCODONE, NUCYNTA, FLEXERIL, GABAPENTIN . IF YES, PLEASE LIST: ____ . ANY NEW PROBLEMS WITH YOUR MEDICATIONS? NO . WHEN DID YOU LAST EAT? ____ . WHEN DID YOU LAST DRINK? ____ . WHAT DID YOU LAST DRINK? ____ . NAME OF PERSON DRIVING YOU HOME? ____ . DO YOU HAVE ANY OTHER QUESTIONS OR CONCERNS NO . VITAL SIGNS WT 229.6 LBS, HT 62 1/2, BMI 41.32 INDEX, BP 126/60 MM HG, HR 88 /MIN, RR 18 /MIN, TEMP 98.6 F, OXYGEN SAT % 98%, SAFE IN ENV? (Y/N) Y, NA INITIALS AW 1453, REVIEWED BY: CAMPBELL. EXAMINATION GENERAL EXAMINATION: GENERALNO ACUTE DISTRESS, WELL NOURISHED AND HYDRATED. PSYCHAPPROPRIATE MOOD AND AFFECT . LUNGS:CLEAR TO AUSCULTATION BILATERALLY, NO WHEEZES, RHONCHI, RALES. HEART:NO MURMURS, REGULAR RATE AND RHYTHM. ASSESSMENTS CHRONIC BILATERAL LOW BACK PAIN WITHOUT SCIATICA - M54.5 (PRIMARY) CHRONIC PRESCRIPTION OPIATE USE - Z79.899 TREATMENT CHRONIC BILATERAL LOW BACK PAIN WITHOUT SCIATICA REFILL CYCLOBENZAPRINE HCL TABLET, 10 MG, 1 TABLET, ORALLY, Q8H PRN, 30 DAY(S), 90, REFILLS 2 REFILL GABAPENTIN CAPSULE, 300 MG, 1 CAPSULE, ORALLY, BID, 30 DAY(S), 60 CAPSULE, REFILLS 0 REFILL NUCYNTA ER TABLET EXTENDED RELEASE 12 HOUR, 150 MG, 1 TABLET (CODE D FOR CHRONIC PAIN), ORALLY, BID MDD2, 30 DAY(S), 60, REFILLS 0 REFILL OXYCODONE-ACETAMINOPHEN TABLET, 7.5-325 MG, 1, ORALLY, EVERY 4-6 HR PRNMDD5, 30 DAY(S), 150, REFILLS 0 CLINICAL NOTES: 53-YEAR-OLD FEMALE IN FOR WORKER'S COMP. CHRONIC PAIN FOLLOW-UP. GIVEN PRESENTING SYMPTOMS AND RESULTS OF PHYSICAL EXAMINATION RECOMMENDED CONTINUATION OF CURRENT MEDICATION REGIMEN WITH FOLLOW-UP IN 3 MONTHS. PATIENT HAS EXPRESSED UNDERSTANDING OF AND WAS IN AGREEMENT WITH TREATMENT PLAN. GIVEN TIME TO ASK QUESTIONS AND EXPRESS CONCERNS., ISTOP REGISTRY REVIEWED AND DEMONSTRATES COMPLLIANCE. (REF # [id number] ) BRINGS IN MEDICATIONS WHICH IS APPROPRIATE FOR WHAT WAS DISPENSED. RECENT URINE TOXICOLOGY REVIEWED. NO UNAUTHORIZED MEDICATIONS. NO ILLICIT SUBSTANCES AND PRESCRIBED MEDICATIONS WERE PRESENT. PROCEDURE CODES FA211 ESTABILISHED PATIENT [facility] CHARGE DISPOSITION & COMMUNICATION FOLLOW UP 3 MONTHS (REASON: BACK PAIN WORKER'S COMP.) ELECTRONICALLY SIGNED BY ISRAEL LOPEZ ON 08/21/2019 AT 03:48 PM EST DISCLAIMER : THIS IS A VISIT SUMMARY EXTRACTED FROM THE [employer] CHART. IT IS NOT A COPY OF THE [employer] PROGRESS NOTE. CHRISTAL
== END ==
LOC: M PAIN 14:15
PROVIDERS: ATTEND Family Medicine
DX: M54.5 Low back pain (principal); G89.29 Other chronic pain; Z86.59 Personal history of other mental and behavioral disorders; Z98.84 Bariatric surgery status; Z88.8 Allergy status to other drugs, medicaments and biological substances; E66.01 Morbid (severe) obesity due to excess calories; Z68.41 Body mass index [BMI] 40.0-44.9, adult; Z79.891 Long term (current) use of opiate analgesic; Z79.899 Other long term (current) drug therapy

== ENCOUNTER → 2019-08-25 | Outpatient (REF) | payer OTHER | LOC: M LAB REF 13:21 | PROVIDERS: ATTEND Internal Medicine | DX: R94.5 Abnormal results of liver function studies (principal) ==

== ENCOUNTER → 2019-11-19 | Outpatient (CLI) | payer OTHER ==
[~2019-11-19] MED LIST changes: -OMEP-172 PO; +OMEP1CAP73 PO
--- NOTE | 2019-11-21 07:10 | ECWPNPC ---
PATIENT NAME: CINDI MARIE : 1965 GENDER: FEMALE VISIT DATE: 11/19/2019 DISCHARGE DATE: 11/19/19 1520 VISIT LOCKED DATE TIME: PHYSICIAN: HEMALATHA HERNANDEZ RESOURCE: HEMALATHA HERNANDEZ REASON FOR APPOINTMENT 1. BACK PAIN WORKER'S COMP. HISTORY OF PRESENT ILLNESS HISTORY OF PRESENT ILLNESS: PAIN THE PATIENT DESCRIBES THE PAIN... 54-YEAR-OLD FEMALE IN FOR WORKER'S COMP. CHRONIC PAIN FOLLOW-UP. PATIENT'S NUCYNTA IS BEING TAPERED DOWN HER ORDERS RECEIVED FOR WORKER'S COMP. PATIENT STATES THAT GIVEN THE DECREASE IN HER MEDICATION SHE IS EXPERIENCING INCREASED PAIN AND SYMPTOMS. SHE RATES HER PAIN CURRENTLY AT A 4-5 OUT OF 10 AND DESCRIBES IT SORE, TENDER, AND FEELINGS OF A PRESSURE. SHE DOES ADMIT THAT HER PAIN GOES BETWEEN 3-7 OUT OF 10. PATIENT WAS HURT IN A WORK RELATED INJURY WHILE WORKING AT [employer] ON 04/03/2003. FALL RISK SCREENING: SCREENING :NO FALLS REPORTED IN THE LAST YEAR CURRENT MEDICATIONS TAKING CLARITIN 10 MG TABLET 1 TABLET ORALLY ONCE A DAY TAKING FUROSEMIDE 40 MG TABLET 1 TABLET ORALLY ONCE A DAY PRN TAKING OMEPRAZOLE 40 MG CAPSULE DELAYED RELEASE 1 CAP ORALLY ONCE A DAY TAKING VITAMIN C 250 MG TABLET 4 TABLET ORALLY ONCE A DAY TAKING CALCIUM 500 + D 500-125 MG-UNIT TABLET 2 TABLET WITH FOOD ORALLY ONCE A DAY TAKING VITAMIN B-12 1000 MCG TABLET SUBLINGUAL 1 TABLET UNDER THE TONGUE AND ALLOW TO DISSOLVE SUBLINGUAL ONCE A DAY TAKING CYCLOBENZAPRINE HCL 10 MG TABLET 1 TABLET ORALLY Q8H PRN TAKING CYMBALTA 60 MG CAPSULE DELAYED RELEASE PARTICLES 1 CAPSULE ORALLY ONCE A DAY FOR PAIN, NOTES: W/C TAKING GABAPENTIN 300 MG CAPSULE 1 CAPSULE ORALLY BID TAKING AMITRIPTYLINE HCL 25 MG TABLET 2 ORALLY ONCE A DAY FOR PAIN MDD2 TAKING NUCYNTA ER 100 MG TABLET EXTENDED RELEASE 12 HOUR 1 TABLET (CODE D FOR CHRONIC PAIN) ORALLY BID MDD2 TAKING OXYCODONE-ACETAMINOPHEN 7.5-325 MG TABLET 1 ORALLY EVERY 4-6 HR PRNMDD5 NOT-TAKING CYMBALTA 60 MG CAPSULE DELAYED RELEASE PARTICLES 1 CAPSULE ORALLY ONCE A DAY NOT-TAKING CYMBALTA 30 MG CAPSULE DELAYED RELEASE PARTICLES 1 CAPSULE ORALLY ONCE A DAY WITH 60MG TAB NOT-TAKING PATITO-E 400 MG TABLET 600MG ORALLY DAILY PAST MEDICAL HISTORY HX OF OBESITY DEPRESSION BACK INJURY 2002 PLANTAR FASCITIS ALLERGIES LYRICA: SWELLING - SIDE EFFECTS SURGICAL HISTORY GASTRIC BYPASS APPENDECTOMY LT KNEE X2 GASTRIC BYPASS REVISION 07/2016 CHOLECYSTECTOMY 2017 LEFT EYE LASER SUR[address]ERY [address] WILBURN 05/20/2018 FAMILY HISTORY FATHER: , DIAGNOSED WITH UNSPECIFIED HEART DISEASE MOTHER: 1 BROTHER(S) , 2 SISTER(S) . MOM-LUNG ISSUES, BROTHER - WITH ISSUES RELATED TO DM AND POST SURGICAL EMBOLI. SISTER- FROM DIABETIC SEIZURE/COMA. SOCIAL HISTORY GENERAL: TOBACCO USE ARE YOU A:NONSMOKER PAIN CLINIC PFS, CLERGY, PUBLIC HEALTH REFERRALS PFS REFERRAL NEEDED?NO CLERGY REFERRAL NEEDED?NO PUBLIC HEALTH REFERRAL NEEDED?NO WAS THE PROVIDER NOTIFIED OF ANY PERTINENT INFO?YES N/A HAS THE PATIENT BEEN EDUCATED REGARDING HIS/HER PLAN OF CARE?YES HAS THE PATIENT BEEN EDUCATED REGARDING PAIN, THE RISK FOR PAIN, THE IMPORTANCE OF EFFECTIVE PAIN MANAGEMENT, AND THE PAIN ASSESSMENT PROCESS?YES LATEX QUESTIONNAIRE LATEX ALLERGY : HAVE YOU EVER DEVELOPED ANY TYPE OF REACTION AFTER HANDLING LATEX PRODUCTS SUCH RUBBER GLOVES, CONDOMS, DIAPHRAGMS, BALLOONS, SOCKS, OR UNDERWEAR?NO LATEX ALLERGY : HAVE YOU EVER DEVELOPED ANY TYPE OF REACTION DURING OR AFTER DENTAL APPOINTMENT, VAGINAL/RECTAL EXAMINATION, SURGICAL PROCEDURE, OR ANY OTHER EXPOSURE?NO DATE ASKED : 08/20/2019 LATEX RISK : HAVE YOU EVER HAD ANY DIFFICULTY BREATHING OR HIVES AFTER EATING OR HANDLING ANY FRUITS, OR VEGETABLES; SUCH KIWI, BANANAS, STONE FRUITS, OR CHESTNUTSNO LATEX RISK : DO YOU HAVE A PREVIOUS PERSONAL HISTORY OF MORE THAN NINE SURGERIES, SPINA BIFIDA, OR REPEATED CATHERIZATIONS? NO LATEX RISK : ARE YOU FREQUENTLY EXPOSED TO LATEX PRODUCTS IN YOUR OCCUPATION?NO CAFFEINE CAFFEINE USE?YES HOW OFTEN AND HOW MUCH? 1-2 SODAS/DAY, OCC. COFFEE ADVANCE DIRECTIVE ADVANCE DIRECTIVE DISCUSSED WITH PATIENT:YES PATIENT DECLINED HCP INFORMATION, PT DECLINED ASSISTANCE WITH FILLING OUT HCP. EDUCATION LEVEL OF EDUCATION:HIGH SCHOOL ALSO TRADE [employer]OL [id number]ORATION LANGUAGE LANGUAGES SPOKEN:[place]URKISH DOMESTIC VIOLENCE DO YOU FEEL SAFE IN YOUR ENVIRONMENT?YES ALCOHOL SCREENING DID YOU HAVE A DRINK CONTAINING ALCOHOL IN THE PAST YEAR?NO POINTS0 INTERPRETATIONNEGATIVE RECREATIONAL DRUG USE DRUG USE?NO LEARNING BARRIERS / SPECIAL NEEDS BARRIERS TO LEARNING?NO HEARING IMPAIRED?NO VISION IMPAIRED?YES COGNITIVELY IMPAIRED?NO :CORRECTIVE LENSES READINESS TO LEARN?YES LEARNING PREFERENCES?NO LEARNING CAPABILITIES PRESENT?YES EMOTIONAL BARRIERS?NO SPECIAL DEVICES?NO FUNERAL HOME DIRECTOR NEEDED?NO REVIEWED WITH PATIENT 09/12/18 1454 JSREVIEWED WITH PATIENT 07/01/19 1439 JSREVIEWED WITH PATIENT 08-20-19 DS. HOSPITALIZATION/MAJOR DIAGNOSTIC PROCEDURE PAIN RIGHT SIDE 03/25 SURGERIES REVIEW OF SYSTEMS REVIEWED BY: PROVIDER: SANDEEP HAWKINS . CONSTITUTIONAL: ANY CHANGE IN YOUR MEDICAL CONDITION? NO . CHILLS NO . FEVER NO . INFECTION: DO YOU HAVE NEW INFECTIONS? NO . DO YOU HAVE HISTORY OF MRSA? NO . MUSCULOSKELETAL: ANY NEW PATTERNS OF PAIN OR NUMBNESS? NO . GASTROENTEROLOGY: ANY NEW CHANGE IN BOWEL CONTROL? NO . GENITOURINARY: ANY NEW CHANGE IN BLADDER CONTROL? NO . IS THERE A CHANCE YOU COULD BE ? NO . HEMATOLOGY/LYMPH: DO YOU TAKE ANY BLOOD THINNERS? (FOR EXAMPLE- COUMADIN, PLAVIX, AGGRENOX, PLATEL, PRADAXA, OR XARELTO) NO . WHEN WAS YOUR LAST DOSE? DATE: TIME: . NEUROLOGY: HAVE YOU FALLEN IN THE PAST 12 MONTHS? NO . ANY NEW EXTREMITY NUMBNESS OR WEAKNESS? NO . CARDIOLOGY: DO YOU HAVE A PACEMAKER OR DEFIBRILLATOR? NO . RESPIRATORY: HAVE YOU BEEN SICK IN THE PAST WEEK? NO . FEVER NO . FLU LIKE SYMPTOMS? NO . COUGH NO . INTEGUMENTARY: DO YOU HAVE ANY RASHES OR OPEN SORES? NO . ALLERGIC/IMMUNO: ARE YOU ALLERGIC TO IV DYE? NO . ANY NEW ALLERGIES? NO . PSYCHIATRIC: DO YOU HAVE THOUGHTS OF HURTING YOURSELF OR SOMEONE ELSE? NO . ARE YOU ABUSED, NEGLECTED, OR IN AN UNSAFE ENVIRONMENT? NO . ENDOCRINOLOGY: ARE YOU DIABETIC? NO . OTHER: DO YOU NEED ANY PRESCRIPTIONS? NO . IF YES, PLEASE LIST: ____ . ANY NEW PROBLEMS WITH YOUR MEDICATIONS? NO . WHEN DID YOU LAST EAT? ____ . WHEN DID YOU LAST DRINK? ____ . WHAT DID YOU LAST DRINK? ____ . NAME OF PERSON DRIVING YOU HOME? ____ . DO YOU HAVE ANY OTHER QUESTIONS OR CONCERNS NO . VITAL SIGNS WT 229 LBS, HT 62 1/2, BMI 41.21 INDEX, BP 178/60 MM HG, HR 98 /MIN, RR 18 /MIN, TEMP 97.5 F, OXYGEN SAT % 98%, SAFE IN ENV? (Y/N) YES, NA INITIALS AW 1452, REVIEWED BY: KG. EXAMINATION GENERAL EXAMINATION: GENERALNO ACUTE DISTRESS, WELL NOURISHED AND HYDRATED. PSYCHAPPROPRIATE MOOD AND AFFECT . LUNGS:CLEAR TO AUSCULTATION BILATERALLY, NO WHEEZES, RHONCHI, RALES. HEART:NO MURMURS, REGULAR RATE AND RHYTHM. ASSESSMENTS CHRONIC BILATERAL LOW BACK PAIN WITHOUT SCIATICA - M54.5 (PRIMARY) TREATMENT CHRONIC BILATERAL LOW BACK PAIN WITHOUT SCIATICA CLINICAL NOTES: 54-YEAR-OLD FEMALE IN FOR WORKER'S COMP. CHRONIC PAIN FOLLOW-UP. GIVEN PRESENTING SYMPTOMS AND RESULTS OF PHYSICAL EXAMINATION RECOMMENDED CONTINUATION OF CURRENT MEDICATION REGIMEN WITH FOLLOW-UP IN 2 MONTHS. FURTHER RECOMMENDED REFERRAL TO RHEUMATOLOGY FOR FURTHER EVALUATION. PATIENT HAS EXPRESSED UNDERSTANDING OF AND WAS IN AGREEMENT WITH TREATMENT PLAN. GIVEN TIME TO ASK QUESTIONS AND EXPRESS CONCERNS., ISTOP REGISTRY REVIEWED AND DEMONSTRATES COMPLLIANCE. (REF # [id number] ) BRINGS IN MEDICATIONS WHICH IS APPROPRIATE FOR WHAT WAS DISPENSED. RECENT URINE TOXICOLOGY REVIEWED. NO UNAUTHORIZED MEDICATIONS. NO ILLICIT SUBSTANCES AND PRESCRIBED MEDICATIONS WERE PRESENT. PROCEDURES PN WORKMANS' COMP OPINION IN YOUR OPINION, WAS THE INCIDENT THAT THE PATIENT DESCRIBED THE COMPETENT MEDICAL CAUSE OF THIS INJURY/ILLNESS? YES ARE THE PATIENT'S COMPLAINTS CONSISTENT WITH HIS/HER HISTORY OF THE INJURY/ILLNESS? YES IS THE PATIENT'S HISTORY OF THE INJURY/ILLNESS CONSISTENT WITH YOUR OBJECTIVE FINDING? YES WHAT IS THE PERCENTAGE OF TEMPORARY IMPAIRMENT? MODERATE TO MARKED = 66.7% IS THE PATIENT WORKING? NO DOCTOR ON SITE: LEOPOLDO ESPINOZA MD PROCEDURE CODES FA211 ESTABILISHED PATIENT [facility] FACILITY CHARGE DISPOSITION & COMMUNICATION FOLLOW UP 2 MONTHS (REASON: WORKER'S COMP. CHRONIC PAIN) ELECTRONICALLY SIGNED BY ISRAEL LOPEZ ON 11/20/2019 AT 10:48 AM EDT DISCLAIMER : THIS IS A VISIT SUMMARY EXTRACTED FROM THE [employer] CHART. IT IS NOT A COPY OF THE [employer] PROGRESS NOTE. CHRISTAL
== END ==
LOC: M PAIN 14:30
PROVIDERS: ATTEND Family Medicine
DX: M54.5 Low back pain (principal); G89.29 Other chronic pain; Z86.59 Personal history of other mental and behavioral disorders; Z98.84 Bariatric surgery status; Z88.8 Allergy status to other drugs, medicaments and biological substances; E66.01 Morbid (severe) obesity due to excess calories; Z68.41 Body mass index [BMI] 40.0-44.9, adult; Z79.891 Long term (current) use of opiate analgesic; Z79.899 Other long term (current) drug therapy

== ENCOUNTER → 2020-01-19 | Outpatient (CLI) | payer OTHER ==
[~2020-01-19] MED LIST changes: +CYCL-707 PO; -CYCL10TA PO
--- NOTE | 2020-02-23 05:12 | ECWPNPC ---
PATIENT NAME: CINDI MARIE : 1965 GENDER: FEMALE VISIT DATE: 01/19/2020 DISCHARGE DATE: 01/19/20 1501 VISIT LOCKED DATE TIME: PHYSICIAN: HEMALATHA HERNANDEZ RESOURCE: HEMALATHA HERNANDEZ REASON FOR APPOINTMENT 1. W/C BACK PAT COMPLETED HISTORY OF PRESENT ILLNESS HISTORY OF PRESENT ILLNESS: PAIN THE PATIENT DESCRIBES THE PAINDURING THE LAST MONTH SEVERITY - PAIN SCORE OF4/10 LOCATIONSLOWER BACK QUALITYACHING , SHARP PRESSURE FEELING DURATIONCONTINUOUS, CONSTANT, ALL DAY PAIN IS INCREASED BY:ACTIVITIES, PROLONGED STANDING PAIN IS DECREASED BY: LIDOCAINE GEL, SITTING PERMISSION REQUESTED AND RECEIVED FOR PATIENT TO PERFORM TELEPHONE VISIT. 54-YEAR-OLD FEMALE IN FOR WORKER'S COMP. CHRONIC PAIN FOLLOW-UP. SHE RATES HER PAIN CURRENTLY AT A 4 OUT OF 10 AND DESCRIBES IT ACHING, SHARP, AND A PRESSURE FEELING. PATIENT WAS HURT IN A WORK RELATED INJURY WHILE WORKING AT [employer] ON 04/03/2003. FALL RISK SCREENING: SCREENING :ONE FALL WITHOUT INJURY IN THE PAST YEAR CURRENT MEDICATIONS TAKING CLARITIN 10 MG TABLET 1 TABLET ORALLY ONCE A DAY TAKING FUROSEMIDE 40 MG TABLET 1 TABLET ORALLY ONCE A DAY PRN TAKING OMEPRAZOLE 40 MG CAPSULE DELAYED RELEASE 1 CAP ORALLY ONCE A DAY TAKING VITAMIN C 250 MG TABLET 4 TABLET ORALLY ONCE A DAY TAKING CALCIUM 500 + D 500-125 MG-UNIT TABLET 2 TABLET WITH FOOD ORALLY ONCE A DAY TAKING VITAMIN B-12 1000 MCG TABLET SUBLINGUAL 1 TABLET UNDER THE TONGUE AND ALLOW TO DISSOLVE SUBLINGUAL ONCE A DAY TAKING AMITRIPTYLINE HCL 25 MG TABLET 2 ORALLY ONCE A DAY FOR PAIN MDD2 TAKING CYCLOBENZAPRINE HCL 10 MG TABLET 1 TABLET ORALLY Q8H PRN TAKING CYMBALTA 60 MG CAPSULE DELAYED RELEASE PARTICLES 1 CAPSULE ORALLY ONCE A DAY FOR PAIN, NOTES: W/C TAKING GABAPENTIN 300 MG CAPSULE 1 CAPSULE ORALLY BID TAKING NUCYNTA ER 100 MG TABLET EXTENDED RELEASE 12 HOUR 1 TABLET (CODE D FOR CHRONIC PAIN) ORALLY BID MDD2 TAKING OXYCODONE-ACETAMINOPHEN 7.5-325 MG TABLET 1 ORALLY EVERY 4-6 HR PRNMDD5 NOT-TAKING CYMBALTA 60 MG CAPSULE DELAYED RELEASE PARTICLES 1 CAPSULE ORALLY ONCE A DAY NOT-TAKING CYMBALTA 30 MG CAPSULE DELAYED RELEASE PARTICLES 1 CAPSULE ORALLY ONCE A DAY WITH 60MG TAB NOT-TAKING PATITO-E 400 MG TABLET 600MG ORALLY DAILY MEDICATION LIST REVIEWED AND RECONCILED WITH THE PATIENT PAST MEDICAL HISTORY HX OF OBESITY DEPRESSION BACK INJURY 2002 PLANTAR FASCITIS ALLERGIES LYRICA: SWELLING - SIDE EFFECTS SURGICAL HISTORY GASTRIC BYPASS APPENDECTOMY LT KNEE X2 GASTRIC BYPASS REVISION 07/2016 CHOLECYSTECTOMY 2017 LEFT EYE LASER SURGERY DR. WILBURN 05/20/2018 FAMILY HISTORY FATHER: , DIAGNOSED WITH UNSPECIFIED HEART DISEASE MOTHER: 1 BROTHER(S) , 2 SISTER(S) . MOM-LUNG ISSUES, BROTHER - WITH ISSUES RELATED TO DM AND POST SURGICAL EMBOLI. SISTER- FROM DIABETIC SEIZURE/COMA. SOCIAL HISTORY GENERAL: TOBACCO USE ARE YOU A:NONSMOKER LATEX QUESTIONNAIRE LATEX ALLERGY : HAVE YOU EVER DEVELOPED ANY TYPE OF REACTION AFTER HANDLING LATEX PRODUCTS SUCH RUBBER GLOVES, CONDOMS, DIAPHRAGMS, BALLOONS, SOCKS, OR UNDERWEAR?NO LATEX ALLERGY : HAVE YOU EVER DEVELOPED ANY TYPE OF REACTION DURING OR AFTER DENTAL APPOINTMENT, VAGINAL/RECTAL EXAMINATION, SURGICAL PROCEDURE, OR ANY OTHER EXPOSURE?NO DATE ASKED : 08/20/2019 LATEX RISK : HAVE YOU EVER HAD ANY DIFFICULTY BREATHING OR HIVES AFTER EATING OR HANDLING ANY FRUITS, OR VEGETABLES; SUCH KIWI, BANANAS, STONE FRUITS, OR CHESTNUTSNO LATEX RISK : DO YOU HAVE A PREVIOUS PERSONAL HISTORY OF MORE THAN NINE SURGERIES, SPINA BIFIDA, OR REPEATED CATHERIZATIONS? NO LATEX RISK : ARE YOU FREQUENTLY EXPOSED TO LATEX PRODUCTS IN YOUR OCCUPATION?NO ALCOHOL SCREENING DID YOU HAVE A DRINK CONTAINING ALCOHOL IN THE PAST YEAR?NO POINTS0 INTERPRETATIONNEGATIVE RECREATIONAL DRUG USE DRUG USE?NO CAFFEINE CAFFEINE USE?YES HOW OFTEN AND HOW MUCH? 1-2 SODAS/DAY, OCC. COFFEE CATHOLIC [id number] CATHOLIC LANGUAGE LANGUAGES SPOKEN:BELGI[place] EDUCATION LEVEL OF EDUCATION:HIGH SCHOOL ALSO TRADE SCHOOL LEARNING BARRIERS / SPECIAL NEEDS BARRIERS TO LEARNING?NO HEARING IMPAIRED?NO VISION IMPAIRED?YES COGNITIVELY IMPAIRED?NO :CORRECTIVE LENSES READINESS TO LEARN?YES LEARNING PREFERENCES?NO LEARNING CAPABILITIES PRESENT?YES EMOTIONAL BARRIERS?NO SPECIAL DEVICES?NO MANUFACTURING LEAD NEEDED?NO DOMESTIC VIOLENCE DO YOU FEEL SAFE IN YOUR ENVIRONMENT?YES PAIN CLINIC PFS, CLERGY, PUBLIC HEALTH REFERRALS PFS REFERRAL NEEDED?NO CLERGY REFERRAL NEEDED?NO PUBLIC HEALTH REFERRAL NEEDED?NO WAS THE PROVIDER NOTIFIED OF ANY PERTINENT INFO?YES N/A HAS THE PATIENT BEEN EDUCATED REGARDING HIS/HER PLAN OF CARE?YES HAS THE PATIENT BEEN EDUCATED REGARDING PAIN, THE RISK FOR PAIN, THE IMPORTANCE OF EFFECTIVE PAIN MANAGEMENT, AND THE PAIN ASSESSMENT PROCESS?YES ADVANCE DIRECTIVE ADVANCE DIRECTIVE DISCUSSED WITH PATIENT:YES PATIENT DECLINED HCP INFORMATION, PT DECLINED ASSISTANCE WITH FILLING OUT HCP. REVIEWED WITH PATIENT 09/12/18 1454 JSREVIEWED WITH PATIENT 07/01/19 1439 JSREVIEWED WITH PATIENT 08-20-19 DS. HOSPITALIZATION/MAJOR DIAGNOSTIC PROCEDURE PAIN RIGHT SIDE 03/25 SURGERIES REVIEW OF SYSTEMS REVIEWED BY: PROVIDER: SANDEEP HAWKINS . CONSTITUTIONAL: ANY CHANGE IN YOUR MEDICAL CONDITION? NO . CHILLS NO . FEVER NO . INFECTION: DO YOU HAVE NEW INFECTIONS? NO . DO YOU HAVE HISTORY OF MRSA? NO . MUSCULOSKELETAL: ANY NEW PATTERNS OF PAIN OR NUMBNESS? NO . GASTROENTEROLOGY: ANY NEW CHANGE IN BOWEL CONTROL? NO . GENITOURINARY: ANY NEW CHANGE IN BLADDER CONTROL? NO . IS THERE A CHANCE YOU COULD BE ? NO . HEMATOLOGY/LYMPH: DO YOU TAKE ANY BLOOD THINNERS? (FOR EXAMPLE- COUMADIN, PLAVIX, AGGRENOX, PLATEL, PRADAXA, OR XARELTO) NO . WHEN WAS YOUR LAST DOSE? DATE: TIME: . NEUROLOGY: HAVE YOU FALLEN IN THE PAST 12 MONTHS? NO . ANY NEW EXTREMITY NUMBNESS OR WEAKNESS? NO . CARDIOLOGY: DO YOU HAVE A PACEMAKER OR DEFIBRILLATOR? NO . RESPIRATORY: HAVE YOU BEEN SICK IN THE PAST WEEK? NO . FEVER NO . FLU LIKE SYMPTOMS? NO . COUGH NO . INTEGUMENTARY: DO YOU HAVE ANY RASHES OR OPEN SORES? NO . ALLERGIC/IMMUNO: ARE YOU ALLERGIC TO IV DYE? NO . ANY NEW ALLERGIES? NO . PSYCHIATRIC: DO YOU HAVE THOUGHTS OF HURTING YOURSELF OR SOMEONE ELSE? NO . ARE YOU ABUSED, NEGLECTED, OR IN AN UNSAFE ENVIRONMENT? NO . ENDOCRINOLOGY: ARE YOU DIABETIC? NO . OTHER: DO YOU NEED ANY PRESCRIPTIONS? YES, REFILL GABAPENTIN . IF YES, PLEASE LIST: ____ . ANY NEW PROBLEMS WITH YOUR MEDICATIONS? NO . WHEN DID YOU LAST EAT? ____ . WHEN DID YOU LAST DRINK? ____ . WHAT DID YOU LAST DRINK? ____ . NAME OF PERSON DRIVING YOU HOME? ____ . DO YOU HAVE ANY OTHER QUESTIONS OR CONCERNS NO . EXAMINATION GENERAL EXAMINATION: PSYCHAPPROPRIATE MOOD AND AFFECT , ORIENTED X 3. ASSESSMENTS CHRONIC BILATERAL LOW BACK PAIN WITHOUT SCIATICA - M54.5 (PRIMARY) TREATMENT CHRONIC BILATERAL LOW BACK PAIN WITHOUT SCIATICA CLINICAL NOTES: 54-YEAR-OLD FEMALE IN FOR WORKER'S COMP. CHRONIC PAIN FOLLOW-UP. GIVEN PRESENTING SYMPTOMS RECOMMENDED CONTINUATION OF CURRENT MEDICATION REGIMEN WITH FOLLOW-UP IN 3 MONTHS. PATIENT HAS EXPRESSED UNDERSTANDING OF AND WAS IN AGREEMENT WITH TREATMENT PLAN. GIVEN TIME TO ASK QUESTIONS AND EXPRESS CONCERNS. OTHERS NOTES: VITALS NOT OBTAINED DUE TO VIRTUAL VISIT, PRE-SCREENING COMPLETED 01/18/20,NA. PROCEDURES PN WORKMANS' COMP OPINION IN YOUR OPINION, WAS THE INCIDENT THAT THE PATIENT DESCRIBED THE COMPETENT MEDICAL CAUSE OF THIS INJURY/ILLNESS? YES ARE THE PATIENT'S COMPLAINTS CONSISTENT WITH HIS/HER HISTORY OF THE INJURY/ILLNESS? YES IS THE PATIENT'S HISTORY OF THE INJURY/ILLNESS CONSISTENT WITH YOUR OBJECTIVE FINDING? YES WHAT IS THE PERCENTAGE OF TEMPORARY IMPAIRMENT? MODERATE TO MARKED = 66.7% IS THE PATIENT WORKING? NO DOCTOR ON SITE: LEOPOLDO ESPINOZA MD DISPOSITION & COMMUNICATION FOLLOW UP 3 MONTHS (REASON: BACK PAIN ) ELECTRONICALLY SIGNED BY ISRAEL LOPEZ ON 02/22/2020 AT 02:16 PM EDT DISCLAIMER : THIS IS A VISIT SUMMARY EXTRACTED FROM THE [employer] CHART. IT IS NOT A COPY OF THE [employer] PROGRESS NOTE. CHRISTAL
== END ==
LOC: M PAIN 14:15
PROVIDERS: ATTEND Family Medicine
DX: M54.5 Low back pain (principal)

== ENCOUNTER → 2020-04-20 | Outpatient (CLI) | payer OTHER | LOC: M PAIN 14:00 | PROVIDERS: ATTEND Family Medicine | DX: M54.5 Low back pain (principal) ==

== ENCOUNTER → 2020-08-16 | Outpatient (CLI) | payer OTHER ==
--- NOTE | 2020-08-18 00:21 | ECWPNPC ---
PATIENT NAME: CINDI MARIE : 1965 GENDER: FEMALE VISIT DATE: 08/16/2020 DISCHARGE DATE: 08/16/20 1516 VISIT LOCKED DATE TIME: PHYSICIAN: HEMALATHA HERNANDEZ RESOURCE: HEMALATHA HERNANDEZ REASON FOR APPOINTMENT 1. 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 CHRONIC PAIN FOLLOW-UP. COMP HAS MANDATED THAT PATIENT TAPER OFF HER NUCYNTA. TAPERING DOSE WILL START TODAY. SHE RATES HER PAIN AT A 4/10 CURRENTLY AND DESCRIBES IT ACHING, AND SHARP. SHE FEELS HER MEDICATIONS ARE HELPFUL AND DENIES MED SIDE EFFECTS AT THIS TIME. PATIENT WAS HURT IN A WORK RELATED INJURY WHILE WORKING AT [employer] ON 04/03/2003. FALL RISK SCREENING: SCREENING :ONE FALL WITHOUT INJURY IN THE PAST YEAR PAIN SCREENING: PATIENT HAS A COMPLAINT OF ACUTE OR CHRONIC PAIN :YES LOCATION OF PAIN:BOTH SHOULDERS, LOW BACK, LEG(S) INTENSITY OF PAIN (SCALE OF 1 TO 10):4 WHAT DOES YOUR PAIN FEEL LIKE:ACHING, SHARP DURATION:CONTINOUS, CONSTANT PAIN IS INCREASED BY:ACTIVITIES PAIN IS DECREASED BY:USE OF PAIN MEDICATIONS TREATMENT/MEDICATIONS USED TO MANAGE PAIN:OPIOIDS LEVEL OF RELIEF FROM PAIN TREATMENTS IN THE PAST:75% PAIN HAS INTERFERED WITH THE FOLLOWING:BATHING/DRESSING, WALKING ABILITY, HOUSEWORK, SLEEP, TRANSPORTATION, TOILETING NURSING NOTE: -. PAIN CENTER INTAKE QUESTIONS: DO YOU HAVE A HISTORY OF MRSA? :NO DO YOU TAKE A BLOOD THINNERS? :NO DO YOU HAVE ANY BLEEDING DISORDERS? :NO ANY NEW NUMBNESS OR WEAKNESS IN YOUR LEGS OR ARMS? :NO ANY PACEMAKER,DEFIBRILLATOR, OR DORSAL COLUMN STIMULATOR? :NO DO YOU HAVE ANY RASHES OR OPEN SORES? :NO ARE YOU ALLERGIC TO IV DYE? :NO ARE YOU DIABETIC? :NO ANY NEW PROBLEMS WITH YOUR MEDICATIONS? :NO HAVE YOU RECEIVED A VACCINE IN THE PAST 30 DAYS? :YES IF SO WHAT VACCINE AND WHEN? FLU VACCINE 07/2020 DO YOU PLAN TO RECEIVE A VACCINE IN THE NEXT 21 DAYS? :NO DO YOU NEED ANY PRESCRIPTION? :YES JOHANN, CYCLOBENZAPRINE DO YOU TAKE ANY IMMUNOSUPPRESSIVE MEDICATIONS? :NO IS THERE A CHANCE YOU COULD BE ? :NO ARE YOU BREAST FEEDING? :NO CURRENT MEDICATIONS TAKING CLARITIN 10 MG TABLET 1 TABLET ORALLY ONCE A DAY TAKING FUROSEMIDE 40 MG TABLET 1 TABLET ORALLY ONCE A DAY PRN TAKING OMEPRAZOLE 40 MG CAPSULE DELAYED RELEASE 1 CAP ORALLY ONCE A DAY TAKING CYMBALTA 60 MG CAPSULE DELAYED RELEASE PARTICLES 1 CAPSULE ORALLY ONCE A DAY FOR PAIN, NOTES: W/C TAKING AMITRIPTYLINE HCL 25 MG TABLET 2 ORALLY ONCE A DAY FOR PAIN MDD2 TAKING CYCLOBENZAPRINE HCL 10 MG TABLET 1 TABLET ORALLY Q8H PRN TAKING GABAPENTIN 300 MG CAPSULE 1 CAPSULE ORALLY BID TAKING OXYCODONE-ACETAMINOPHEN 7.5-325 MG TABLET 1 ORALLY EVERY 6 HRS TAKING NUCYNTA ER 100 MG TABLET EXTENDED RELEASE 12 HOUR 1 TABLET (CODE D FOR CHRONIC PAIN) ORALLY DAILY PRN WEANING DOSE NOT-TAKING VITAMIN C 250 MG TABLET 4 TABLET ORALLY ONCE A DAY NOT-TAKING CALCIUM 500 + D 500-125 MG-UNIT TABLET 2 TABLET WITH FOOD ORALLY ONCE A DAY NOT-TAKING VITAMIN B-12 1000 MCG TABLET SUBLINGUAL 1 TABLET UNDER THE TONGUE AND ALLOW TO DISSOLVE SUBLINGUAL ONCE A DAY NOT-TAKING CYMBALTA 60 MG CAPSULE DELAYED RELEASE PARTICLES 1 CAPSULE ORALLY ONCE A DAY NOT-TAKING CYMBALTA 30 MG CAPSULE DELAYED RELEASE PARTICLES 1 CAPSULE ORALLY ONCE A DAY WITH 60MG TAB NOT-TAKING PATITO-E 400 MG TABLET 600MG ORALLY DAILY MEDICATION LIST REVIEWED AND RECONCILED WITH THE PATIENT PAST MEDICAL HISTORY HX OF OBESITY DEPRESSION BACK INJURY 2002 PLANTAR FASCITIS FIBROMYALGIA ALLERGIES LYRICA: SWELLING - SIDE EFFECTS SURGICAL HISTORY GASTRIC BYPASS APPENDECTOMY LT KNEE X2 GASTRIC BYPASS REVISION 07/2016 CHOLECYSTECTOMY 2017 LEFT EYE LASER SUR[address]ERY DR[address] WILBURN 05/20/2018 FAMILY HISTORY FATHER: , DIAGNOSED WITH UNSPECIFIED HEART DISEASE MOTHER: 1 BROTHER(S) , 2 SISTER(S) . MOM-LUNG ISSUES, BROTHER - WITH ISSUES RELATED TO DM AND POST SURGICAL EMBOLI. SISTER- FROM DIABETIC SEIZURE/COMA. SOCIAL HISTORY GENERAL: TOBACCO USE ARE YOU A:NONSMOKER LATEX QUESTIONNAIRE LATEX ALLERGY : HAVE YOU EVER DEVELOPED ANY TYPE OF REACTION AFTER HANDLING LATEX PRODUCTS SUCH RUBBER GLOVES, CONDOMS, DIAPHRAGMS, BALLOONS, SOCKS, OR UNDERWEAR?NO LATEX ALLERGY : HAVE YOU EVER DEVELOPED ANY TYPE OF REACTION DURING OR AFTER DENTAL APPOINTMENT, VAGINAL/RECTAL EXAMINATION, SURGICAL PROCEDURE, OR ANY OTHER EXPOSURE?NO LATEX RISK : HAVE YOU EVER HAD ANY DIFFICULTY BREATHING OR HIVES AFTER EATING OR HANDLING ANY FRUITS, OR VEGETABLES; SUCH KIWI, BANANAS, STONE FRUITS, OR CHESTNUTSNO LATEX RISK : DO YOU HAVE A PREVIOUS PERSONAL HISTORY OF MORE THAN NINE SURGERIES, SPINA BIFIDA, OR REPEATED CATHERIZATIONS? NO LATEX RISK : ARE YOU FREQUENTLY EXPOSED TO LATEX PRODUCTS IN YOUR OCCUPATION?NO DATE ASKED : 08/16/2020 ALCOHOL SCREENING DID YOU HAVE A DRINK CONTAINING ALCOHOL IN THE PAST YEAR?NO POINTS0 INTERPRETATIONNEGATIVE RECREATIONAL DRUG USE DRUG USE?NO CAFFEINE CAFFEINE USE?YES HOW OFTEN AND HOW MUCH? 1-2 SODAS/DAY, OCC. 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 REVIEWED WITH PATIENT 09/12/18 1454 JSREVIEWED WITH PATIENT 07/01/19 1439 JSREVIEWED WITH PATIENT 08-20-19 DS. HOSPITALIZATION/MAJOR DIAGNOSTIC PROCEDURE PAIN RIGHT SIDE 03/25 SURGERIES REVIEW OF SYSTEMS CONSTITUTIONAL: ANY RECENT FEVER NO . CHILLS NO . WEIGHT CHANGE OF UNKNOWN REASONS NO . GASTROENTEROLOGY: NEW UNEXPLAINABLE CHANGES IN BOWEL CONTROL NO . CONSTIPATION NO . GENITOURINARY: ANY NEW CHANGE IN BLADDER CONTROL? NO . NEUROLOGY: NEW ONSET DIZZINESS OR NEUROLOGICAL CHANGES NOT MENTIONED NO . NEW NUMBNESS OR PAIN PATTERNS NOT MENTIONED AND PERTINENT TO TODAY'S VISIT NO . CARDIOLOGY: NEW CHEST PRESSURE NO . NEW CHEST PAIN NO . RESPIRATORY: UNEXPLAINABLE COUGH NO . NEW SHORTNESS OF BREATH NO . VITAL SIGNS WT 225 LBS, HT 62 1/2, BMI 40.49 INDEX, BP 139/79 MM HG, HR 98 /MIN, RR 18 /MIN, TEMP 98.4 F, OXYGEN SAT % 99%, SAFE IN ENV? (Y/N) Y, NA INITIALS IA 14:28, REVIEWED BY: EM. 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 CHRONIC PAIN FOLLOW-UP. GIVEN PRESENTING SYMPTOMS RECOMMEND TAPERING DOSE OF NUCYNTA WITH FOLLOW-UP IN ONE MONTH. PATIENT HAS EXPRESSED UNDERSTANDING OF AND WAS IN AGREEMENT WITH TREATMENT PLAN. GIVEN TIME TO ASK QUESTIONS AND EXPRESS CONCERNS. , ISTOP REGISTRY REVIEWED AND DEMONSTRATES COMPLLIANCE. (REF # [id number] ) BRINGS IN MEDICATIONS WHICH IS APPROPRIATE FOR WHAT WAS DISPENSED. RECENT URINE TOXICOLOGY REVIEWED. NO UNAUTHORIZED MEDICATIONS. NO ILLICIT SUBSTANCES AND PRESCRIBED MEDICATIONS WERE PRESENT. OTHERS REFILL OXYCODONE-ACETAMINOPHEN TABLET, 7.5-325 MG, 1, ORALLY, EVERY 6 HRS, 30 DAYS, 150 REFILL CYCLOBENZAPRINE HCL TABLET, 10 MG, 1 TABLET, ORALLY, Q8H PRN, 30 DAY(S), 90, REFILLS 2 REFILL GABAPENTIN CAPSULE, 300 MG, 1 CAPSULE, ORALLY, BID, 30 DAY(S), 60 CAPSULE, REFILLS 0 PROCEDURE CODES FA211 ESTABILISHED PATIENT [facility] CHARGE DISPOSITION & COMMUNICATION FOLLOW UP 4 WEEKS (REASON: MEDICATION DECREASE) ELECTRONICALLY SIGNED BY ISRAEL LOPEZ ON 08/17/2020 AT 09:24 AM EST ADDENDUM: 08/17/2020 09:25 AM HEMALATHA HERNANDEZ > PN WORKMANS' COMP OPINION: IN YOUR OPINION, WAS THE INCIDENT THAT THE PATIENT DESCRIBED THE COMPETENT MEDICAL CAUSE OF THIS INJURY/ILLNESS? YES ARE THE PATIENT'S COMPLAINTS CONSISTENT WITH HIS/HER HISTORY OF THE INJURY/ILLNESS? YES IS THE PATIENT'S HISTORY OF THE INJURY/ILLNESS CONSISTENT WITH YOUR OBJECTIVE FINDING? YES WHAT IS THE PERCENTAGE OF TEMPORARY IMPAIRMENT? MODERATE TO MARKED = 66.7% IS THE PATIENT WORKING? NO DOCTOR ON SITE: LEOPOLDO ESPINOZA MD. DISCLAIMER : THIS IS A VISIT SUMMARY EXTRACTED FROM THE [email or web address] CHART. IT IS NOT A COPY OF THE [email or web address] PROGRESS NOTE. [facility]
== END ==
LOC: M PAIN 14:30
PROVIDERS: ATTEND Family Medicine
DX: M54.5 Low back pain (principal); F32.9 Major depressive disorder, single episode, unspecified; M79.7 Fibromyalgia; M72.2 Plantar fascial fibromatosis; Z79.891 Long term (current) use of opiate analgesic; Z79.899 Other long term (current) drug therapy; Z88.8 Allergy status to other drugs, medicaments and biological substances

== ENCOUNTER → 2020-09-13 | Outpatient (CLI) | payer OTHER ==
--- NOTE | 2020-09-15 01:29 | ECWPNPC ---
PATIENT NAME: CINDI MARIE : 1965 GENDER: FEMALE VISIT DATE: 09/13/2020 DISCHARGE DATE: 09/13/20 1526 VISIT LOCKED DATE TIME: PHYSICIAN: HEMALATHA HERNANDEZ RESOURCE: HEMALATHA HERNANDEZ REASON FOR APPOINTMENT 1. MEDICATION DECREASE HISTORY OF PRESENT ILLNESS GENERAL: 54-YEAR-OLD FEMALE IN FOR CHRONIC PAIN FOLLOW-UP. SHE RATES HER PAIN CURRENTLY AT A 3 OUT OF 10 AND DESCRIBES IT ACHING, CONTINUOUS, AND SHARP. PATIENT HAS STARTED A NUCYNTA TAPER THAT WAS INITIATED BY [employer] COMP. PATIENT WAS HURT IN A WORK RELATED INJURY WHILE WORKING AT [employer] ON 04/03/2003. -. FALL RISK SCREENING: SCREENING :NO FALLS REPORTED IN THE LAST YEAR PAIN SCREENING: PATIENT HAS A COMPLAINT OF ACUTE OR CHRONIC PAIN :YES LOCATION OF PAIN:LOW BACK BILATERAL THIGHS INTENSITY OF PAIN (SCALE OF 1 TO 10):3 WHAT DOES YOUR PAIN FEEL LIKE:ACHING, CONTINOUS, SHARP DURATION:CONTINOUS PAIN IS INCREASED BY:ACTIVITIES PAIN IS DECREASED BY:USE OF PAIN MEDICATIONS REST, HEAT, ICE NURSING NOTE: -. PAIN CENTER INTAKE QUESTIONS: DO YOU HAVE A HISTORY OF MRSA? :NO DO YOU TAKE A BLOOD THINNERS? :NO DO YOU HAVE ANY BLEEDING DISORDERS? :NO ANY NEW NUMBNESS OR WEAKNESS IN YOUR LEGS OR ARMS? :NO ANY PACEMAKER,DEFIBRILLATOR, OR DORSAL COLUMN STIMULATOR? :NO DO YOU HAVE ANY RASHES OR OPEN SORES? :NO ARE YOU ALLERGIC TO IV DYE? :NO ARE YOU DIABETIC? :NO ANY NEW PROBLEMS WITH YOUR MEDICATIONS? :NO HAVE YOU RECEIVED A VACCINE IN THE PAST 30 DAYS? :NO DO YOU PLAN TO RECEIVE A VACCINE IN THE NEXT 21 DAYS? :NO DO YOU NEED ANY PRESCRIPTION? :YES CYCLOBENZABRINE, CYMBALTA, OXYCODONE DO YOU TAKE ANY IMMUNOSUPPRESSIVE MEDICATIONS? :NO IS THERE A CHANCE YOU COULD BE ? :NO ARE YOU BREAST FEEDING? :NO CURRENT MEDICATIONS TAKING CLARITIN 10 MG TABLET 1 TABLET ORALLY ONCE A DAY TAKING FUROSEMIDE 40 MG TABLET 1 TABLET ORALLY ONCE A DAY PRN TAKING OMEPRAZOLE 40 MG CAPSULE DELAYED RELEASE 1 CAP ORALLY ONCE A DAY TAKING CYMBALTA 60 MG CAPSULE DELAYED RELEASE PARTICLES 1 CAPSULE ORALLY ONCE A DAY FOR PAIN, NOTES: W/C TAKING AMITRIPTYLINE HCL 25 MG TABLET 2 ORALLY ONCE A DAY FOR PAIN MDD2 TAKING NUCYNTA ER 100 MG TABLET EXTENDED RELEASE 12 HOUR 1 TABLET (CODE D FOR CHRONIC PAIN) ORALLY DAILY PRN WEANING DOSE TAKING OXYCODONE-ACETAMINOPHEN 7.5-325 MG TABLET 1 ORALLY EVERY 6 HRS TAKING CYCLOBENZAPRINE HCL 10 MG TABLET 1 TABLET ORALLY Q8H PRN TAKING GABAPENTIN 300 MG CAPSULE 1 CAPSULE ORALLY BID NOT-TAKING VITAMIN C 250 MG TABLET 4 TABLET ORALLY ONCE A DAY NOT-TAKING CALCIUM 500 + D 500-125 MG-UNIT TABLET 2 TABLET WITH FOOD ORALLY ONCE A DAY NOT-TAKING VITAMIN B-12 1000 MCG TABLET SUBLINGUAL 1 TABLET UNDER THE TONGUE AND ALLOW TO DISSOLVE SUBLINGUAL ONCE A DAY NOT-TAKING CYMBALTA 60 MG CAPSULE DELAYED RELEASE PARTICLES 1 CAPSULE ORALLY ONCE A DAY NOT-TAKING CYMBALTA 30 MG CAPSULE DELAYED RELEASE PARTICLES 1 CAPSULE ORALLY ONCE A DAY WITH 60MG TAB NOT-TAKING PATITO-E 400 MG TABLET 600MG ORALLY DAILY MEDICATION LIST REVIEWED AND RECONCILED WITH THE PATIENT PAST MEDICAL HISTORY HX OF OBESITY DEPRESSION BACK INJURY 2002 PLANTAR FASCITIS FIBROMYALGIA ALLERGIES LYRICA: SWELLING - SIDE EFFECTS SURGICAL HISTORY GASTRIC BYPASS APPENDECTOMY LT KNEE X2 GASTRIC BYPASS REVISION 07/2016 CHOLECYSTECTOMY [address] LEFT EYE LASER SUR[address]ERY [address] WILBURN 05/20/2018 FAMILY HISTORY FATHER: , DIAGNOSED WITH UNSPECIFIED HEART DISEASE MOTHER: 1 BROTHER(S) , 2 SISTER(S) . MOM-LUNG ISSUES, BROTHER - WITH ISSUES RELATED TO DM AND POST SURGICAL EMBOLI. SISTER- FROM DIABETIC SEIZURE/COMA. SOCIAL HISTORY GENERAL: TOBACCO USE ARE YOU A:NONSMOKER LATEX QUESTIONNAIRE LATEX ALLERGY : HAVE YOU EVER DEVELOPED ANY TYPE OF REACTION AFTER HANDLING LATEX PRODUCTS SUCH RUBBER GLOVES, CONDOMS, DIAPHRAGMS, BALLOONS, SOCKS, OR UNDERWEAR?NO LATEX ALLERGY : HAVE YOU EVER DEVELOPED ANY TYPE OF REACTION DURING OR AFTER DENTAL APPOINTMENT, VAGINAL/RECTAL EXAMINATION, SURGICAL PROCEDURE, OR ANY OTHER EXPOSURE?NO LATEX RISK : HAVE YOU EVER HAD ANY DIFFICULTY BREATHING OR HIVES AFTER EATING OR HANDLING ANY FRUITS, OR VEGETABLES; SUCH KIWI, BANANAS, STONE FRUITS, OR CHESTNUTSNO LATEX RISK : DO YOU HAVE A PREVIOUS PERSONAL HISTORY OF MORE THAN NINE SURGERIES, SPINA BIFIDA, OR REPEATED CATHERIZATIONS? NO LATEX RISK : ARE YOU FREQUENTLY EXPOSED TO LATEX PRODUCTS IN YOUR OCCUPATION?NO DATE ASKED : 09/13/2020 ALCOHOL SCREENING DID YOU HAVE A DRINK CONTAINING ALCOHOL IN THE PAST YEAR?NO POINTS0 INTERPRETATIONNEGATIVE RECREATIONAL DRUG USE DRUG USE?NO CAFFEINE CAFFEINE USE?YES HOW OFTEN AND HOW MUCH? 1-2 SODAS/DAY, OCC. COFFEE DRUZE [id number] WORSHIP LANGUAGE LANGUAGES SPOKEN:GERMAN EDUCATION LEVEL OF EDUCATION:HIGH SCHOOL ALSO TRADE SCHOOL LEARNING BARRIERS / SPECIAL NEEDS BARRIERS TO LEARNING?NO HEARING IMPAIRED?NO VISION IMPAIRED?YES COGNITIVELY IMPAIRED?NO :CORRECTIVE LENSES READINESS TO LEARN?YES LEARNING PREFERENCES?NO LEARNING CAPABILITIES PRESENT?YES EMOTIONAL BARRIERS?NO SPECIAL DEVICES?NO EMERGENCY TECHNICIAN NEEDED?NO DOMESTIC VIOLENCE DO YOU FEEL SAFE IN YOUR ENVIRONMENT?YES PAIN CLINIC PFS, CLERGY, PUBLIC HEALTH REFERRALS PFS REFERRAL NEEDED?NO CLERGY REFERRAL NEEDED?NO PUBLIC HEALTH REFERRAL NEEDED?NO WAS THE PROVIDER NOTIFIED OF ANY PERTINENT INFO?YES N/A HAS THE PATIENT BEEN EDUCATED REGARDING HIS/HER PLAN OF CARE?YES HAS THE PATIENT BEEN EDUCATED REGARDING PAIN, THE RISK FOR PAIN, THE IMPORTANCE OF EFFECTIVE PAIN MANAGEMENT, AND THE PAIN ASSESSMENT PROCESS?YES ADVANCE DIRECTIVE ADVANCE DIRECTIVE DISCUSSED WITH PATIENT:YES PATIENT DECLINED HCP INFORMATION, PT DECLINED ASSISTANCE WITH FILLING OUT HCP. REVIEWED WITH PATIENT 09/12/18 1454 JSREVIEWED WITH PATIENT 07/01/19 1439 JSREVIEWED WITH PATIENT 08-20-19 DS. HOSPITALIZATION/MAJOR DIAGNOSTIC PROCEDURE PAIN RIGHT SIDE 03/25 SURGERIES REVIEW OF SYSTEMS CONSTITUTIONAL: ANY RECENT FEVER NO . CHILLS NO . WEIGHT CHANGE OF UNKNOWN REASONS NO . GASTROENTEROLOGY: NEW UNEXPLAINABLE CHANGES IN BOWEL CONTROL NO . CONSTIPATION NO . GENITOURINARY: ANY NEW CHANGE IN BLADDER CONTROL? NO . NEUROLOGY: NEW ONSET DIZZINESS OR NEUROLOGICAL CHANGES NOT MENTIONED NO . NEW NUMBNESS OR PAIN PATTERNS NOT MENTIONED AND PERTINENT TO TODAY'S VISIT NO . CARDIOLOGY: NEW CHEST PRESSURE NO . NEW CHEST PAIN NO . RESPIRATORY: UNEXPLAINABLE COUGH NO . NEW SHORTNESS OF BREATH NO . VITAL SIGNS WT 219.8 LBS, HT 62 1/2, BMI 39.56 INDEX, BP 132/76 MM HG, HR 116 /MIN, RR 18 /MIN, TEMP 97.2 F, OXYGEN SAT % 95%, SAFE IN ENV? (Y/N) YES, [place]ITIALS [place] 1505, REVIEWED BY: NLJREVIEWED 09/13/2020 Cruz ZEPEDA RN. EXAMINATION GENERAL EXAMINATION: GENERALNO ACUTE DISTRESS, WELL NOURISHED AND HYDRATED. PSYCHAPPROPRIATE MOOD AND AFFECT . LUNGS:CLEAR TO AUSCULTATION BILATERALLY, NO WHEEZES, RHONCHI, RALES. HEART:NO MURMURS, REGULAR RATE AND RHYTHM. ASSESSMENTS CHRONIC BILATERAL LOW BACK PAIN WITHOUT SCIATICA - M54.5 (PRIMARY) TREATMENT CHRONIC BILATERAL LOW BACK PAIN WITHOUT SCIATICA REFILL OXYCODONE-ACETAMINOPHEN TABLET, 7.5-325 MG, 1, ORALLY, EVERY 6 HRS, 30 DAYS, 150 REFILL CYCLOBENZAPRINE HCL TABLET, 10 MG, 1 TABLET, ORALLY, Q8H PRN, 30 DAY(S), 90, REFILLS 2 DECREASE NUCYNTA ER TABLET EXTENDED RELEASE 12 HOUR, 50 MG, 1 TABLET, ORALLY, TWICE DAILY PRN WEANING DOSE, 30 DAYS, 60 NOTES: 54-YEAR-OLD FEMALE IN FOR WORKER'S COMP. CHRONIC PAIN FOLLOW-UP. GIVEN PRESENTING SYMPTOMS RECOMMEND DECREASING PATIENT'S NUCYNTA 50 MG TWICE A DAY NEEDED WITH FOLLOW-UP IN 2 MONTHS. PATIENT HAS EXPRESSED UNDERSTANDING OF AND WAS IN AGREEMENT WITH TREATMENT PLAN. GIVEN TIME TO ASK QUESTIONS AND EXPRESS CONCERNS. , ISTOP REGISTRY REVIEWED AND DEMONSTRATES COMPLLIANCE. (REF # [id number] ) BRINGS IN MEDICATIONS WHICH IS APPROPRIATE FOR WHAT WAS DISPENSED. RECENT URINE TOXICOLOGY REVIEWED. NO UNAUTHORIZED MEDICATIONS. NO ILLICIT SUBSTANCES AND PRESCRIBED MEDICATIONS WERE PRESENT. PROCEDURES PN WORKMANS' COMP OPINION IN YOUR OPINION, WAS THE INCIDENT THAT THE PATIENT DESCRIBED THE COMPETENT MEDICAL CAUSE OF THIS INJURY/ILLNESS? YES ARE THE PATIENT'S COMPLAINTS CONSISTENT WITH HIS/HER HISTORY OF THE INJURY/ILLNESS? YES IS THE PATIENT'S HISTORY OF THE INJURY/ILLNESS CONSISTENT WITH YOUR OBJECTIVE FINDING? YES WHAT IS THE PERCENTAGE OF TEMPORARY IMPAIRMENT? MODERATE TO MARKED = 66.7% IS THE PATIENT WORKING? NO DOCTOR ON SITE: LEOPOLDO ESPINOZA MD DISPOSITION & COMMUNICATION FOLLOW UP 2 MONTHS (REASON: BACK PAIN) ELECTRONICALLY SIGNED BY ISRAEL LOPEZ ON 09/14/2020 AT 01:41 PM EST DISCLAIMER : THIS IS A VISIT SUMMARY EXTRACTED FROM THE [employer] CHART. IT IS NOT A COPY OF THE [employer] PROGRESS NOTE. CHRISTAL
== END ==
LOC: M PAIN 14:45
PROVIDERS: ATTEND Family Medicine
DX: M54.5 Low back pain (principal); G89.29 Other chronic pain; M79.7 Fibromyalgia; Z86.59 Personal history of other mental and behavioral disorders; Z98.84 Bariatric surgery status; Z88.8 Allergy status to other drugs, medicaments and biological substances; Z79.891 Long term (current) use of opiate analgesic; Z79.899 Other long term (current) drug therapy

== ENCOUNTER → 2020-11-30 | Outpatient (CLI) | payer OTHER ==
[~2020-11-30] MED LIST changes: -AMIT25TA PO; +AMIT25TA17 PO
--- NOTE | 2020-12-03 08:47 | ECWPNPC ---
PATIENT NAME: CINDI MARIE : 1965 GENDER: FEMALE VISIT DATE: 11/30/2020 DISCHARGE DATE: 11/30/20 1450 VISIT LOCKED DATE TIME: PHYSICIAN: HEMALATHA HERNANDEZ RESOURCE: HEMALATHA HERNANDEZ REASON FOR APPOINTMENT 1. W/C 2 MONTH BACK PAIN HISTORY OF PRESENT ILLNESS DEPRESSION SCREENING: PHQ-2 (2015 EDITION) LITTLE INTEREST OR PLEASURE IN DOING THINGS?SEVERAL DAYS FEELING DOWN, DEPRESSED, OR HOPELESS?NOT AT ALL TOTAL SCORE1 55-YEAR-OLD FEMALE IN FOR WORKER'S COMP. CHRONIC PAIN FOLLOW-UP. SHE RATES HER PAIN CURRENTLY AT A 4 OUT OF 10. SHE FEELS HER MEDICATIONS ARE HELPFUL AND DENIES MED SIDE EFFECTS AT THIS TIME. PATIENT WAS HURT IN A WORK RELATED INJURY WHILE WORKING AT [employer] ON 04/03/2003. PAIN CENTER INTAKE QUESTIONS: DO YOU HAVE A HISTORY OF MRSA? :NO DO YOU TAKE A BLOOD THINNERS? :NO DO YOU HAVE ANY BLEEDING DISORDERS? :NO ANY NEW NUMBNESS OR WEAKNESS IN YOUR LEGS OR ARMS? :NO ANY PACEMAKER,DEFIBRILLATOR, OR DORSAL COLUMN STIMULATOR? :NO DO YOU HAVE ANY RASHES OR OPEN SORES? :NO ARE YOU ALLERGIC TO IV DYE? :NO ARE YOU DIABETIC? :NO ANY NEW PROBLEMS WITH YOUR MEDICATIONS? :YES WILL DISCUSS WITH PROVIDER HAVE YOU RECEIVED A VACCINE IN THE PAST 30 DAYS? :NO DO YOU PLAN TO RECEIVE A VACCINE IN THE NEXT 21 DAYS? :NO DO YOU NEED ANY PRESCRIPTION? :NO DO YOU TAKE ANY IMMUNOSUPPRESSIVE MEDICATIONS? :NO DO YOU HAVE ANY KIDNEY OR LIVER DISEASE? :NO IS THERE A CHANCE YOU COULD BE ? :NO ARE YOU BREAST FEEDING? :NO GENERAL: -. FALL RISK SCREENING: SCREENING : NO FALLS REPORTED IN THE LAST YEAR. PAIN SCREENING: PATIENT HAS A COMPLAINT OF ACUTE OR CHRONIC PAIN :YES LOCATION OF PAIN:MID BACK, LOW BACK INTENSITY OF PAIN (SCALE OF 1 TO 10):4 WHAT DOES YOUR PAIN FEEL LIKE:ACHING, CONTINOUS, SHARP, OTHER PRESSURE DURATION:CONTINOUS, CONSTANT PAIN IS INCREASED BY:ACTIVITIES, PROLONGED STANDING PAIN IS DECREASED BY:USE OF PAIN MEDICATIONS, SITTING NURSING NOTE: -. CURRENT MEDICATIONS TAKING CLARITIN 10 MG TABLET 1 TABLET ORALLY ONCE A DAY TAKING FUROSEMIDE 40 MG TABLET 1 TABLET ORALLY ONCE A DAY PRN TAKING OMEPRAZOLE 40 MG CAPSULE DELAYED RELEASE 1 CAP ORALLY ONCE A DAY TAKING CYCLOBENZAPRINE HCL 10 MG TABLET 1 TABLET ORALLY Q8H PRN TAKING CYMBALTA 60 MG CAPSULE DELAYED RELEASE PARTICLES 1 CAPSULE ORALLY ONCE A DAY FOR PAIN, NOTES: W/C TAKING GABAPENTIN 300 MG CAPSULE 1 CAPSULE ORALLY BID TAKING AMITRIPTYLINE HCL 25 MG TABLET 2 ORALLY ONCE A DAY FOR PAIN MDD2 TAKING NUCYNTA ER 50 MG TABLET EXTENDED RELEASE 12 HOUR 1 TABLET ORALLY DAILY TAKING OXYCODONE-ACETAMINOPHEN 7.5-325 MG TABLET 1 ORALLY EVERY 6 HRS TAKING HYDRALAZINE HCL 50 MG TABLET 1 TABLET WITH FOOD ORALLY THREE TIMES A DAY UNKNOWN VITAMIN C 250 MG TABLET 4 TABLET ORALLY ONCE A DAY UNKNOWN CALCIUM 500 + D 500-125 MG-UNIT TABLET 2 TABLET WITH FOOD ORALLY ONCE A DAY UNKNOWN VITAMIN B-12 1000 MCG TABLET SUBLINGUAL 1 TABLET UNDER THE TONGUE AND ALLOW TO DISSOLVE SUBLINGUAL ONCE A DAY UNKNOWN CYMBALTA 60 MG CAPSULE DELAYED RELEASE PARTICLES 1 CAPSULE ORALLY ONCE A DAY UNKNOWN CYMBALTA 30 MG CAPSULE DELAYED RELEASE PARTICLES 1 CAPSULE ORALLY ONCE A DAY WITH 60MG TAB UNKNOWN PATITO-E 400 MG TABLET 600MG ORALLY DAILY MEDICATION LIST REVIEWED AND RECONCILED WITH THE PATIENT PAST MEDICAL HISTORY HX OF OBESITY DEPRESSION BACK INJURY 2003 PLANTAR FASCITIS FIBROMYALGIA ALLERGIES LYRICA: SWELLING - SIDE EFFECTS SOCIAL HISTORY GENERAL: TOBACCO USE ARE YOU A:NONSMOKER LATEX QUESTIONNAIRE LATEX ALLERGY : HAVE YOU EVER DEVELOPED ANY TYPE OF REACTION AFTER HANDLING LATEX PRODUCTS SUCH RUBBER GLOVES, CONDOMS, DIAPHRAGMS, BALLOONS, SOCKS, OR UNDERWEAR?NO LATEX ALLERGY : HAVE YOU EVER DEVELOPED ANY TYPE OF REACTION DURING OR AFTER DENTAL APPOINTMENT, VAGINAL/RECTAL EXAMINATION, SURGICAL PROCEDURE, OR ANY OTHER EXPOSURE?NO LATEX RISK : HAVE YOU EVER HAD ANY DIFFICULTY BREATHING OR HIVES AFTER EATING OR HANDLING ANY FRUITS, OR VEGETABLES; SUCH KIWI, BANANAS, STONE FRUITS, OR CHESTNUTSNO LATEX RISK : DO YOU HAVE A PREVIOUS PERSONAL HISTORY OF MORE THAN NINE SURGERIES, SPINA BIFIDA, OR REPEATED CATHERIZATIONS? NO LATEX RISK : ARE YOU FREQUENTLY EXPOSED TO LATEX PRODUCTS IN YOUR OCCUPATION?NO DATE ASKED : 11/30/2020 ALCOHOL USE: NO. ALCOHOL SCREENING DID YOU HAVE A DRINK CONTAINING ALCOHOL IN THE PAST YEAR?NO POINTS0 INTERPRETATIONNEGATIVE RECREATIONAL DRUG USE DRUG USE?NO CAFFEINE CAFFEINE USE?YES HOW OFTEN AND HOW MUCH? 1-2 SODAS/DAY, OCC. COFFEE ALEVISM [id number] [employer] LANGUAGE LANGUAGES SPOKEN:MARSHALLESE EDUCATION LEVEL OF EDUCATION:HIGH SCHOOL ALSO TRADE SCHOOL LEARNING BARRIERS / SPECIAL NEEDS CHANGE FROM LAST VISIT?YES BARRIERS TO LEARNING?NO HEARING IMPAIRED?NO VISION IMPAIRED?YES :CORRECTIVE LENSES COGNITIVELY IMPAIRED?NO READINESS TO LEARN?YES LEARNING PREFERENCES?NO LEARNING CAPABILITIES PRESENT?YES EMOTIONAL BARRIERS?NO SPECIAL DEVICES?YES :CANE NEEDED FOR UNSTEADY GAIT SECURITY ALARM TECHNICIAN NEEDED?NO DOMESTIC VIOLENCE DO YOU FEEL SAFE IN YOUR ENVIRONMENT?YES - PFS REFERRAL NEEDED?NO CLERGY REFERRAL NEEDED?NO PUBLIC HEALTH REFERRAL NEEDED?NO WAS THE PROVIDER NOTIFIED OF ANY PERTINENT INFO?YES N/A HAS THE PATIENT BEEN EDUCATED REGARDING HIS/HER PLAN OF CARE?YES HAS THE PATIENT BEEN EDUCATED REGARDING PAIN, THE RISK FOR PAIN, THE IMPORTANCE OF EFFECTIVE PAIN MANAGEMENT, AND THE PAIN ASSESSMENT PROCESS?YES ADVANCE DIRECTIVE ADVANCE DIRECTIVE DISCUSSED WITH PATIENT:YES PATIENT DECLINED HCP INFORMATION, PT DECLINED ASSISTANCE WITH FILLING OUT HCP. REVIEWED WITH PATIENT 09/12/18 1454 JSREVIEWED WITH PATIENT 07/01/19 1439 JSREVIEWED WITH PATIENT 08-20-19 DS. REVIEW OF SYSTEMS CONSTITUTIONAL: ANY RECENT FEVER NO . CHILLS NO . WEIGHT CHANGE OF UNKNOWN REASONS NO . GASTROENTEROLOGY: NEW UNEXPLAINABLE CHANGES IN BOWEL CONTROL NO . CONSTIPATION NO . GENITOURINARY: ANY NEW CHANGE IN BLADDER CONTROL? NO . NEUROLOGY: NEW ONSET DIZZINESS OR NEUROLOGICAL CHANGES NOT MENTIONED NO . NEW NUMBNESS OR PAIN PATTERNS NOT MENTIONED AND PERTINENT TO TODAY'S VISIT NO . CARDIOLOGY: NEW CHEST PRESSURE NO . PATIENT DENIES NO . RESPIRATORY: UNEXPLAINABLE COUGH NO . NEW SHORTNESS OF BREATH NO . VITAL SIGNS WT 214.4 LBS, HT 62 1/2, BMI 38.59 INDEX, BP 130/65 MM HG, HR 103 /MIN, RR 18 /MIN, TEMP 98.0 F, OXYGEN SAT % 97%, SAFE IN ENV? (Y/N) YES, NA INITIALS SC 14:20, REVIEWED BY: EDISON FRY MA. EXAMINATION GENERAL EXAMINATION: GENERALNO ACUTE DISTRESS, WELL NOURISHED AND HYDRATED. PSYCHAPPROPRIATE MOOD AND AFFECT . LUNGS:CLEAR TO AUSCULTATION BILATERALLY, NO WHEEZES, RHONCHI, RALES. HEART:NO MURMURS, REGULAR RATE AND RHYTHM. ASSESSMENTS CHRONIC BILATERAL LOW BACK PAIN WITHOUT SCIATICA - M54.5 (PRIMARY), RISK: (NULL) TREATMENT CHRONIC BILATERAL LOW BACK PAIN WITHOUT SCIATICA CONTINUE OXYCODONE-ACETAMINOPHEN TABLET, 7.5-325 MG, 1, ORALLY, EVERY 4-6 HRS MDD 5, 30 DAYS, 150 CONTINUE NUCYNTA ER TABLET EXTENDED RELEASE 12 HOUR, 50 MG, 1 TABLET, ORALLY, DAILY, 30 DAYS, 30 TABLET NOTES: 55-YEAR-OLD FEMALE IN FOR WORKER'S COMP. CHRONIC PAIN FOLLOW-UP. GIVEN PRESENTING SYMPTOMS WILL CONTINUE WITH DECREASED DOSE OF NUCYNTA AND CONTINUED USE OF OXYCODONE WITH FOLLOW-UP IN 2 MONTHS. PATIENT HAS EXPRESSED UNDERSTANDING OF AND WAS IN AGREEMENT WITH TREATMENT PLAN. GIVEN TIME TO ASK QUESTIONS AND EXPRESS CONCERNS. , ISTOP REGISTRY REVIEWED AND DEMONSTRATES COMPLLIANCE. (REF # [id number] ) BRINGS IN MEDICATIONS WHICH IS APPROPRIATE FOR WHAT WAS DISPENSED. RECENT URINE TOXICOLOGY REVIEWED. NO UNAUTHORIZED MEDICATIONS. NO ILLICIT SUBSTANCES AND PRESCRIBED MEDICATIONS WERE PRESENT. PROCEDURES PN WORKMANS' COMP OPINION IN YOUR OPINION, WAS THE INCIDENT THAT THE PATIENT DESCRIBED THE COMPETENT MEDICAL CAUSE OF THIS INJURY/ILLNESS? YES ARE THE PATIENT'S COMPLAINTS CONSISTENT WITH HIS/HER HISTORY OF THE INJURY/ILLNESS? YES IS THE PATIENT'S HISTORY OF THE INJURY/ILLNESS CONSISTENT WITH YOUR OBJECTIVE FINDING? YES WHAT IS THE PERCENTAGE OF TEMPORARY IMPAIRMENT? MODERATE TO MARKED = 66.7% IS THE PATIENT WORKING? NO DOCTOR ON SITE: LEOPOLDO ESPINOZA MD PROCEDURE CODES FA211 ESTABILISHED PATIENT [facility] CHARGE DISPOSITION & COMMUNICATION FOLLOW UP 2 MONTHS (REASON: W/C BACK PAIN ) ELECTRONICALLY SIGNED BY ISRAEL LOPEZ ON 12/02/2020 AT 08:39 AM EDT DISCLAIMER : THIS IS A VISIT SUMMARY EXTRACTED FROM THE [employer] CHART. IT IS NOT A COPY OF THE [employer] PROGRESS NOTE. MTDD
== END ==
LOC: M PAIN 14:15
PROVIDERS: ATTEND Family Medicine
DX: M54.5 Low back pain (principal); E66.9 Obesity, unspecified; F32.9 Major depressive disorder, single episode, unspecified; M72.2 Plantar fascial fibromatosis; M79.7 Fibromyalgia; Z79.891 Long term (current) use of opiate analgesic; Z79.899 Other long term (current) drug therapy; Z88.8 Allergy status to other drugs, medicaments and biological substances; Z68.38 Body mass index [BMI] 38.0-38.9, adult

== ENCOUNTER → 2021-03-09 | Outpatient (CLI) | payer OTHER ==
[~2021-03-09] MED LIST changes: -OXYC1TAB15 PO; +OXYC7.5T3 PO
--- NOTE | 2021-03-11 04:07 | ECWPNPC ---
PATIENT NAME: CINDI MARIE : 1965 GENDER: FEMALE VISIT DATE: 03/09/2021 DISCHARGE DATE: 03/09/21 1423 VISIT LOCKED DATE TIME: PHYSICIAN: HEMALATHA HERNANDEZ RESOURCE: HEMALATHA HERNANDEZ REASON FOR APPOINTMENT 1. W/C BACK PAIN HISTORY OF PRESENT ILLNESS GENERAL: HPI 55-YEAR-OLD FEMALE IN FOR WORKER'S COMP. CHRONIC PAIN FOLLOW-UP. PATIENT FEELS HER MEDICATIONS ARE HELPFUL AND DENIES MED SIDE EFFECTS AT THIS TIME. SHE RATES HER PAIN CURRENTLY AT A 4-10 AND DESCRIBES IT ACHING, CONTINUOUS, AND SHARP. DOI 04/03/2003. -. FALL RISK SCREENING: SCREENING : NO FALLS REPORTED IN THE LAST YEAR. PAIN SCREENING: PATIENT HAS A COMPLAINT OF ACUTE OR CHRONIC PAIN :YES LOCATION OF PAIN:LEFT HIP, RIGHT HIP, BACK INTENSITY OF PAIN (SCALE OF 1 TO 10):4 WHAT DOES YOUR PAIN FEEL LIKE:ACHING, CONTINOUS, SHARP, OTHER PRESSURE DURATION:CONTINOUS, CONSTANT, AWAKENS FROM SLEEP PAIN IS INCREASED BY:ACTIVITIES, PROLONGED STANDING PAIN IS DECREASED BY:USE OF PAIN MEDICATIONS, SITTING NURSING NOTE: -. PAIN CENTER INTAKE QUESTIONS: DO YOU HAVE A HISTORY OF MRSA? :NO DO YOU TAKE A BLOOD THINNERS? :NO DO YOU HAVE ANY BLEEDING DISORDERS? :NO ANY NEW NUMBNESS OR WEAKNESS IN YOUR LEGS OR ARMS? :NO ANY PACEMAKER,DEFIBRILLATOR, OR DORSAL COLUMN STIMULATOR? :NO DO YOU HAVE ANY RASHES OR OPEN SORES? :NO ARE YOU ALLERGIC TO IV DYE? :NO ARE YOU DIABETIC? :NO ANY NEW PROBLEMS WITH YOUR MEDICATIONS? :NO HAVE YOU RECEIVED A VACCINE IN THE PAST 30 DAYS? :YES SECOND COVID VACCINATION 01/10/2021 DO YOU PLAN TO RECEIVE A VACCINE IN THE NEXT 21 DAYS? :NO DO YOU NEED ANY PRESCRIPTION? :NO DO YOU TAKE ANY IMMUNOSUPPRESSIVE MEDICATIONS? :NO DO YOU HAVE ANY KIDNEY OR LIVER DISEASE? :NO IS THERE A CHANCE YOU COULD BE ? :NO ARE YOU BREAST FEEDING? :NO CURRENT MEDICATIONS TAKING CLARITIN 10 MG TABLET 1 TABLET ORALLY ONCE A DAY TAKING FUROSEMIDE 40 MG TABLET 1 TABLET ORALLY ONCE A DAY PRN TAKING OMEPRAZOLE 40 MG CAPSULE DELAYED RELEASE 1 CAP ORALLY ONCE A DAY TAKING CYCLOBENZAPRINE HCL 10 MG TABLET 1 TABLET ORALLY Q8H PRN TAKING HYDRALAZINE HCL 50 MG TABLET 1 TABLET WITH FOOD ORALLY THREE TIMES A DAY TAKING CYMBALTA 60 MG CAPSULE DELAYED RELEASE PARTICLES 1 CAPSULE ORALLY ONCE A DAY FOR PAIN, NOTES: W/C TAKING AMITRIPTYLINE HCL 25 MG TABLET 2 ORALLY ONCE A DAY FOR PAIN MDD2 TAKING NUCYNTA ER 50 MG TABLET EXTENDED RELEASE 12 HOUR 1 TABLET ORALLY DAILY TAKING OXYCODONE-ACETAMINOPHEN 7.5-325 MG TABLET 1 ORALLY EVERY 4-6 HRS MDD 5 TAKING GABAPENTIN 300 MG CAPSULE 1 CAPSULE ORALLY BID UNKNOWN VITAMIN C 250 MG TABLET 4 TABLET ORALLY ONCE A DAY UNKNOWN CALCIUM 500 + D 500-125 MG-UNIT TABLET 2 TABLET WITH FOOD ORALLY ONCE A DAY UNKNOWN VITAMIN B-12 1000 MCG TABLET SUBLINGUAL 1 TABLET UNDER THE TONGUE AND ALLOW TO DISSOLVE SUBLINGUAL ONCE A DAY UNKNOWN CYMBALTA 60 MG CAPSULE DELAYED RELEASE PARTICLES 1 CAPSULE ORALLY ONCE A DAY UNKNOWN CYMBALTA 30 MG CAPSULE DELAYED RELEASE PARTICLES 1 CAPSULE ORALLY ONCE A DAY WITH 60MG TAB UNKNOWN PATITO-E 400 MG TABLET 600MG ORALLY DAILY MEDICATION LIST REVIEWED AND RECONCILED WITH THE PATIENT PAST MEDICAL HISTORY HX OF OBESITY DEPRESSION BACK INJURY 2003 PLANTAR FASCITIS FIBROMYALGIA ALLERGIES LYRICA: SWELLING - SIDE EFFECTS SOCIAL HISTORY GENERAL: TOBACCO USE ARE YOU A:NONSMOKER LATEX QUESTIONNAIRE LATEX ALLERGY : HAVE YOU EVER DEVELOPED ANY TYPE OF REACTION AFTER HANDLING LATEX PRODUCTS SUCH RUBBER GLOVES, CONDOMS, DIAPHRAGMS, BALLOONS, SOCKS, OR UNDERWEAR?NO LATEX ALLERGY : HAVE YOU EVER DEVELOPED ANY TYPE OF REACTION DURING OR AFTER DENTAL APPOINTMENT, VAGINAL/RECTAL EXAMINATION, SURGICAL PROCEDURE, OR ANY OTHER EXPOSURE?NO LATEX RISK : HAVE YOU EVER HAD ANY DIFFICULTY BREATHING OR HIVES AFTER EATING OR HANDLING ANY FRUITS, OR VEGETABLES; SUCH KIWI, BANANAS, STONE FRUITS, OR CHESTNUTSNO LATEX RISK : DO YOU HAVE A PREVIOUS PERSONAL HISTORY OF MORE THAN NINE SURGERIES, SPINA BIFIDA, OR REPEATED CATHERIZATIONS? NO LATEX RISK : ARE YOU FREQUENTLY EXPOSED TO LATEX PRODUCTS IN YOUR OCCUPATION?NO DATE ASKED : 03/09/2021 ALCOHOL USE: NO. ALCOHOL SCREENING DID YOU HAVE A DRINK CONTAINING ALCOHOL IN THE PAST YEAR?NO POINTS0 INTERPRETATIONNEGATIVE RECREATIONAL DRUG USE DRUG USE?NO CAFFEINE CAFFEINE USE?YES HOW OFTEN AND HOW MUCH? 1-2 SODAS/DAY, OCC. COFFEE RASTAFARI [id number] RASTAFARIAN LANGUAGE LANGUAGES SPOKEN:GRENADIAN EDUCATION LEVEL OF EDUCATION:HIGH SCHOOL ALSO TRADE SCHOOL LEARNING BARRIERS / SPECIAL NEEDS CHANGE FROM LAST VISIT?YES BARRIERS TO LEARNING?NO HEARING IMPAIRED?NO VISION IMPAIRED?YES :CORRECTIVE LENSES COGNITIVELY IMPAIRED?NO READINESS TO LEARN?YES LEARNING PREFERENCES?NO LEARNING CAPABILITIES PRESENT?YES EMOTIONAL BARRIERS?NO SPECIAL DEVICES?YES :CANE NEEDED FOR UNSTEADY GAIT DETECTIVE CAPTAIN NEEDED?NO DOMESTIC VIOLENCE DO YOU FEEL SAFE IN YOUR ENVIRONMENT?YES - PFS REFERRAL NEEDED?NO CLERGY REFERRAL NEEDED?NO PUBLIC HEALTH REFERRAL NEEDED?NO WAS THE PROVIDER NOTIFIED OF ANY PERTINENT INFO?YES N/A HAS THE PATIENT BEEN EDUCATED REGARDING HIS/HER PLAN OF CARE?YES HAS THE PATIENT BEEN EDUCATED REGARDING PAIN, THE RISK FOR PAIN, THE IMPORTANCE OF EFFECTIVE PAIN MANAGEMENT, AND THE PAIN ASSESSMENT PROCESS?YES ADVANCE DIRECTIVE ADVANCE DIRECTIVE DISCUSSED WITH PATIENT:YES PATIENT DECLINED HCP INFORMATION, PT DECLINED ASSISTANCE WITH FILLING OUT HCP. REVIEWED WITH PATIENT 09/12/18 1454 JSREVIEWED WITH PATIENT 07/01/19 1439 JSREVIEWED WITH PATIENT 08-20-19 DS. REVIEW OF SYSTEMS CONSTITUTIONAL: ANY RECENT FEVER NO . CHILLS NO . WEIGHT CHANGE OF UNKNOWN REASONS NO . GASTROENTEROLOGY: NEW UNEXPLAINABLE CHANGES IN BOWEL CONTROL NO . CONSTIPATION NO . GENITOURINARY: ANY NEW CHANGE IN BLADDER CONTROL? NO . NEUROLOGY: NEW ONSET DIZZINESS OR NEUROLOGICAL CHANGES NOT MENTIONED NO . NEW NUMBNESS OR PAIN PATTERNS NOT MENTIONED AND PERTINENT TO TODAY'S VISIT NO . CARDIOLOGY: NEW CHEST PRESSURE NO . PATIENT DENIES NO . RESPIRATORY: UNEXPLAINABLE COUGH NO . NEW SHORTNESS OF BREATH NO . VITAL SIGNS WT 214.5 LBS, HT 62 1/2, BMI 38.60 INDEX, BP 136/63 MM HG, HR 86 /MIN, RR 18 /MIN, TEMP 98.8 F, OXYGEN SAT % 98%, SAFE IN ENV? (Y/N) YES, REVIEWED BY: EDISON FRY MA. EXAMINATION GENERAL EXAMINATION: GENERALNO ACUTE DISTRESS, WELL NOURISHED AND HYDRATED. PSYCHAPPROPRIATE MOOD AND AFFECT . LUNGS:CLEAR TO AUSCULTATION BILATERALLY, NO WHEEZES, RHONCHI, RALES. HEART:NO MURMURS, REGULAR RATE AND RHYTHM. ASSESSMENTS CHRONIC PRESCRIPTION OPIATE USE - Z79.891 (PRIMARY) CHRONIC BILATERAL LOW BACK PAIN WITHOUT SCIATICA - M54.5 TREATMENT CHRONIC PRESCRIPTION OPIATE USE LAB: URINE TEST GROUP [facility] 03/09/2021 2:19:12 PM > LAST DOSE: GABAPETIN 03/09/2021, OXYCODONE 03/09/2021, TRAMADOL 03/09/2021 CHRONIC BILATERAL LOW BACK PAIN WITHOUT SCIATICA NOTES: 55-YEAR-OLD FEMALE IN FOR WORKER'S COMP. CHRONIC PAIN FOLLOW-UP. GIVEN PRESENTING SYMPTOMS RECOMMEND CONTINUATION OF CURRENT MEDICATION REGIMEN WITH FOLLOW-UP IN 3 MONTHS. PATIENT HAS EXPRESSED UNDERSTANDING OF AND WAS IN AGREEMENT WITH TREATMENT PLAN. GIVEN TIME TO ASK QUESTIONS AND EXPRESS CONCERNS. [employer] REGISTRY REVIEWED AND DEMONSTRATES COMPLLIANCE. (REF # [id number] ) BRINGS IN MEDICATIONS WHICH IS APPROPRIATE FOR WHAT WAS DISPENSED. RECENT URINE TOXICOLOGY REVIEWED. NO UNAUTHORIZED MEDICATIONS. NO ILLICIT SUBSTANCES AND PRESCRIBED MEDICATIONS WERE PRESENT. PROCEDURES PN WORKMANS' COMP OPINION IN YOUR OPINION, WAS THE INCIDENT THAT THE PATIENT DESCRIBED THE COMPETENT MEDICAL CAUSE OF THIS INJURY/ILLNESS? YES ARE THE PATIENT'S COMPLAINTS CONSISTENT WITH HIS/HER HISTORY OF THE INJURY/ILLNESS? YES IS THE PATIENT'S HISTORY OF THE INJURY/ILLNESS CONSISTENT WITH YOUR OBJECTIVE FINDING? YES WHAT IS THE PERCENTAGE OF TEMPORARY IMPAIRMENT? MODERATE TO MARKED = 66.7% IS THE PATIENT WORKING? NO DOCTOR ON SITE: LEOPOLDO ESPINOZA MD PROCEDURE CODES FA211 ESTABILISHED PATIENT [facility] CHARGE DISPOSITION & COMMUNICATION FOLLOW UP 3 MONTHS (REASON: LOW BACK PAIN) ELECTRONICALLY SIGNED BY ISRAEL LOPEZ ON 03/10/2021 AT 08:46 AM EDT DISCLAIMER : THIS IS A VISIT SUMMARY EXTRACTED FROM THE [employer] CHART. IT IS NOT A COPY OF THE [employer] PROGRESS NOTE. CHRISTAL
== END ==
LOC: M PAIN 14:45
PROVIDERS: ATTEND Family Medicine
DX: M54.5 Low back pain (principal); F32.9 Major depressive disorder, single episode, unspecified; M72.2 Plantar fascial fibromatosis; M79.7 Fibromyalgia; E66.9 Obesity, unspecified; Z79.891 Long term (current) use of opiate analgesic; Z68.38 Body mass index [BMI] 38.0-38.9, adult; Z79.899 Other long term (current) drug therapy; Z88.8 Allergy status to other drugs, medicaments and biological substances

== ENCOUNTER → 2021-10-24 | Outpatient (CLI) | payer OTHER | LOC: M PAIN 13:45 | PROVIDERS: ATTEND Nurse Practitioner Family | DX: M54.50 Low back pain, unspecified (principal); F32.A Depression, unspecified; M79.7 Fibromyalgia; Z79.899 Other long term (current) drug therapy; Z79.891 Long term (current) use of opiate analgesic; Z88.8 Allergy status to other drugs, medicaments and biological substances ==

== ENCOUNTER → 2021-11-08 | Outpatient (CLI) | payer OTHER | LOC: M PAIN 14:45 | PROVIDERS: ATTEND Anesthesiology | DX: M54.50 Low back pain, unspecified (principal); M47.816 Spondylosis without myelopathy or radiculopathy, lumbar region; F32.A Depression, unspecified; M72.2 Plantar fascial fibromatosis; M79.7 Fibromyalgia; Z98.84 Bariatric surgery status; Z79.891 Long term (current) use of opiate analgesic; Z79.899 Other long term (current) drug therapy; Z88.8 Allergy status to other drugs, medicaments and biological substances ==

== ENCOUNTER → 2022-01-04 | Outpatient (CLI) | payer OTHER ==
[~2022-01-04] MED LIST changes: +HYDR50TA70 PO; +KETO2CR TOP; +NIRM1TAB PO; +PRED20TA PO; +TIZA10TA PO
== END ==
LOC: M PAIN 11:15
PROVIDERS: ATTEND Anesthesiology
DX: M54.50 Low back pain, unspecified (principal); M54.16 Radiculopathy, lumbar region; F32.A Depression, unspecified; M72.2 Plantar fascial fibromatosis; M79.7 Fibromyalgia; Z79.891 Long term (current) use of opiate analgesic; Z79.899 Other long term (current) drug therapy; Z88.8 Allergy status to other drugs, medicaments and biological substances

== ENCOUNTER 2022-01-06 14:35 | Emergency (ER) | payer OTHER ==
[~2022-01-06] VITALS: Ht 154.9 cm; Wt 80.1 kg
[2022-01-06 14:35] VITALS: BP 127/61
[~2022-01-06 14:35] MED LIST changes: -HYDR50TA70 PO; -KETO2CR TOP; -NIRM1TAB PO; -PRED20TA PO; -TIZA10TA PO
[2022-01-06] MEDS ORDERED: HYDR50TA70 PO (14:45)
[2022-01-06] MEDS ORDERED: TIZA10TA PO (14:45)
[2022-01-06] MEDS ORDERED: methylPREDNISolone 125MG 2ML VIAL IV ONE (16:30)
[2022-01-06] MEDS ORDERED: ALBUTEROL 90 MCG/ACT 8GM HFA INHALER INH ONE (16:30)
[2022-01-06] MEDS ORDERED: NS 1,000 ML IV ONE (16:30)
[2022-01-06] MEDS ORDERED: KETOROLAC 30 MG/ML 1ML VIAL IV ONE (16:45)
[2022-01-06 17:24] LABS: BASO # 0.1 10^3/uL (0.0-0.2); BASO % 0.9 % (0.0-1.0); EOS # 0.1 10^3/uL (0.0-0.5); EOS % 0.7 % (0.0-3.0); HEMATOCRIT 36.1 % (36.0-47.0); HEMOGLOBIN 11.3 g/dl (12.0-15.5); LYMPH # 0.6 10^3/uL (1.5-5.0); LYMPH % 8.3 % (24.0-44.0); MEAN CORPUSCULAR HEMOGLOBIN 25.9 pg (27.0-33.0); MEAN CORPUSCULAR HGB CONC 31.3 g/dl (32.0-36.5); MEAN CORPUSCULAR VOLUME 82.8 fl (80.0-96.0); MONO # 0.9 10^3/uL (0.0-0.8); MONO % 13.3 % (2.0-8.0); NEUTROPHILS # 5.1 10^3/uL (1.5-8.5); NEUTROPHILS % 76.1 % (36.0-66.0); PLATELET COUNT, AUTOMATED 330 10^3/uL (150-450); RED BLOOD COUNT 4.36 10^6/uL (4.00-5.40); WHITE BLOOD COUNT 6.8 10^3/uL (4.0-10.0)
[2022-01-06 17:44] LABS: ALBUMIN 3.4 GM/DL (3.2-5.2); ALT/SGPT 37 U/L (12-78); BILIRUBIN,DIRECT < 0.1 MG/DL (0.0-0.2); BILIRUBIN,TOTAL 0.2 MG/DL (0.2-1.0); BLOOD UREA NITROGEN 11 MG/DL (7-18); CALCIUM LEVEL 9.1 MG/DL (8.5-10.1); CARBON DIOXIDE LEVEL 26 MEQ/L (21-32); CHLORIDE LEVEL 106 MEQ/L (98-107); CREATININE FOR GFR 0.98 MG/DL (0.55-1.30); GLOMERULAR FILTRATION RATE > 60.0 (>51); GLUCOSE, FASTING 95 MG/DL (70-100); SODIUM LEVEL 140 MEQ/L (136-145); TOTAL PROTEIN 6.7 GM/DL (6.4-8.2)
[2022-01-06] MEDS ORDERED: PERCOCET 5MG/325MG TAB PO ONE (18:50)
[2022-01-06] MEDS ORDERED: NIRMATRELVIR/RITONAVIR CO-PACK (EMERGENCY USE AUTH) PO SCH ×2 (19:15→21:00)
[2022-01-06] MEDS ORDERED: VENTAER INH ×2 (20:26→20:56)
[2022-01-06] MEDS ORDERED: PRED20TA PO ×2 (20:26→20:56)
[2022-01-06] MEDS ORDERED: HOME MED LIST COMPLETE! XX SCH (20:40)
[2022-01-06] MEDS ORDERED: KETO2CR TOP (20:54)
[2022-01-06] MEDS ORDERED: NIRM1TAB PO (20:56)
== END 2022-01-06 21:04 | disposition home or self-care (01) ==
LOC: M ED 14:35
DX: U07.1 COVID-19 (principal); J45.901 Unspecified asthma with (acute) exacerbation; K21.9 Gastro-esophageal reflux disease without esophagitis; M51.36 Other intervertebral disc degeneration, lumbar region; F32.A Depression, unspecified; F41.9 Anxiety disorder, unspecified; Z98.84 Bariatric surgery status; Z88.8 Allergy status to other drugs, medicaments and biological substances; Z91.013 Allergy to seafood; Z79.51 Long term (current) use of inhaled steroids; Z79.899 Other long term (current) drug therapy
CPT/HCPCS: 71046; 80048; 80076; 85025; 87400; 87428; 87486; 87581; 87633; 87798; 94640; 96361; 96374; 96375; 99283; J1885; J2930

== ENCOUNTER → 2022-02-13 | Outpatient (CLI) | payer OTHER ==
[~2022-02-13] MED LIST changes: +HYDR50TA70 PO; +KETO2CR TOP; +NIRM1TAB PO; +PRED20TA PO; +TIZA10TA PO
== END ==
LOC: M PLAIMG 08:59
PROVIDERS: ATTEND Anesthesiology
DX: M54.16 Radiculopathy, lumbar region (principal)

== ENCOUNTER → 2022-03-06 | Outpatient (CLI) | payer OTHER ==
[~2022-03-06] MED LIST changes: +GABA-283 PO; +HYDR-3713 PO; +MACR100C43 PO; +OXYB5TAB10 PO; +PYRI1TAB5 PO
== END ==
LOC: M PAIN 14:45
PROVIDERS: ATTEND Nurse Practitioner Family
DX: M51.16 Intervertebral disc disorders with radiculopathy, lumbar region (principal); F32.A Depression, unspecified; M72.2 Plantar fascial fibromatosis; M79.7 Fibromyalgia; Z98.84 Bariatric surgery status; Z90.49 Acquired absence of other specified parts of digestive tract; Z79.899 Other long term (current) drug therapy; Z88.8 Allergy status to other drugs, medicaments and biological substances

== ENCOUNTER 2022-03-30 22:00 | Day surgery (SDC) | payer OTHER ==
[~2022-03-30] VITALS: Ht 154.9 cm; Wt 81.8 kg
[~2022-03-30 22:00] MED LIST changes: -GABA-283 PO; -HYDR-3713 PO; -MACR100C43 PO; -OXYB5TAB10 PO; -PYRI1TAB5 PO
[2022-03-30] MEDS ORDERED: GABA-283 PO (22:12)
[2022-03-31] MEDS ORDERED: KETOROLAC 30 MG/ML 1ML VIAL IV ONE (03:45)
[2022-03-31] MEDS ORDERED: NS 1,000 ML IV ONE (03:45)
[2022-03-31 03:55] LABS: BASO # 0.1 10^3/uL (0.0-0.2); BASO % 0.7 % (0.0-1.0); EOS # 0.2 10^3/uL (0.0-0.5); EOS % 1.3 % (0.0-3.0); HEMATOCRIT 34.9 % (36.0-47.0); HEMOGLOBIN 10.7 g/dl (12.0-15.5); LYMPH # 3.9 10^3/uL (1.5-5.0); MEAN CORPUSCULAR HEMOGLOBIN 25.2 pg (27.0-33.0); MEAN CORPUSCULAR HGB CONC 30.7 g/dl (32.0-36.5); MEAN CORPUSCULAR VOLUME 82.3 fl (80.0-96.0); MONO # 0.9 10^3/uL (0.0-0.8); MONO % 7.3 % (2.0-8.0); NEUTROPHILS # 6.8 10^3/uL (1.5-8.5); NEUTROPHILS % 57.3 % (36.0-66.0); PLATELET COUNT, AUTOMATED 386 10^3/uL (150-450); RED BLOOD COUNT 4.24 10^6/uL (4.00-5.40); WHITE BLOOD COUNT 11.9 10^3/uL (4.0-10.0)
[2022-03-31 04:06] LABS: INR 0.95; PROTHROMBIN TIME 13.1 SECONDS (12.7-14.5)
[2022-03-31 04:18] LABS: ALBUMIN 3.7 GM/DL (3.2-5.2); ALT/SGPT 31 U/L (12-78); AMYLASE 46 U/L (25-115); BILIRUBIN,DIRECT < 0.1 MG/DL (0.0-0.2); BILIRUBIN,TOTAL 0.2 MG/DL (0.2-1.0); BLOOD UREA NITROGEN 10 MG/DL (7-18); CALCIUM LEVEL 9.2 MG/DL (8.5-10.1); CARBON DIOXIDE LEVEL 28 MEQ/L (21-32); CHLORIDE LEVEL 109 MEQ/L (98-107); GLOMERULAR FILTRATION RATE 54.7 (>51); GLUCOSE, FASTING 103 MG/DL (70-100); LIPASE 87 U/L (73-393); POTASSIUM SERUM 4.2 MEQ/L (3.5-5.1); SODIUM LEVEL 144 MEQ/L (136-145)
[2022-03-31] MEDS ORDERED: ONDANSETRON 4MG 2ML VIAL IV ONE (06:20)
[2022-03-31] MEDS ORDERED: MORPHINE 4 MG/ML 1ML VIAL/SYRINGE IV ONE (06:20)
[2022-03-31 06:25] LABS: RSV AMPLIFICATION NEGATIVE (NEGATIVE)
[2022-03-31] MEDS ORDERED: HOME MED LIST COMPLETE! XX SCH (06:35)
[2022-03-31] MEDS ORDERED: ceFAZolin 2 GM/D5W 50 ML IV BAG (J0690 PER 500MG) As Ordered ONE (08:39)
[2022-03-31] MEDS ORDERED: fentaNYL 100 MCG/2 ML INJECTION As Ordered ONE (09:01)
[2022-03-31] MEDS ORDERED: MIDAZOLAM INJ 2MG/2ML VIAL (J2250 PER 1MG) As Ordered ONE (09:01)
[2022-03-31] MEDS ORDERED: DESFLURANE 240 ML INHALANT As Ordered ONE (09:01)
[2022-03-31] MEDS ORDERED: METOCLOPRAMIDE INJ 10MG/2ML VIAL (J2765 PER 1) As Ordered ONE (09:01)
[2022-03-31] MEDS ORDERED: propofoL 200 MG/20 ML VIAL As Ordered ONE (09:01)
[2022-03-31] MEDS ORDERED: dexameTHASONE 4 MG/ML 1ML VIAL (J1100 PER 1MG) As Ordered ONE (09:01)
[2022-03-31] MEDS ORDERED: LIDOCAINE 2% 100MG/5ML SDV (FOR ANES.) As Ordered ONE (09:01)
[2022-03-31] MEDS ORDERED: ONDANSETRON 4MG 2ML VIAL As Ordered ONE (09:01)
[2022-03-31] MEDS ORDERED: SEVOFLURANE INHAL SOLN 250 ML BTL As Ordered ONE (09:04)
[2022-03-31] MEDS ORDERED: fentaNYL 100 MCG/2 ML INJECTION IV PRN (09:05)
[2022-03-31] MEDS ORDERED: oxyCODONE 5MG TAB PO PRN (09:05)
[2022-03-31] MEDS ORDERED: HYDROMORPHONE HCL 0.5 MG/ 0.5 ML SYRINGE (J1170 PER 1) IV PRN (09:05)
[2022-03-31] MEDS ORDERED: METOCLOPRAMIDE INJ 10MG/2ML VIAL (J2765 PER 1) IV PRN (09:05)
[2022-03-31] MEDS ORDERED: ONDANSETRON 4MG 2ML VIAL IV PRN (09:05)
[2022-03-31] MEDS ORDERED: ALBUTEROL SULFATE 2.5 MG/0.5 ML INH NEB SOLN INH ONE (09:05)
[2022-03-31] MEDS ORDERED: LR 1,000 ML IV SCH (09:05)
[2022-03-31] MEDS ORDERED: OXYB5TAB10 PO (09:12)
[2022-03-31] MEDS ORDERED: MACR100C43 PO (09:12)
[2022-03-31] MEDS ORDERED: PYRI1TAB5 PO (09:12)
[2022-03-31] MEDS ORDERED: ISOVUE-300 61% 50ML VIAL XX ONE (09:14)
[2022-03-31 09:25] VITALS: BP 132/55
[2022-03-31] MEDS ORDERED: HYDR-3713 PO (10:18)
== END 2022-03-31 | disposition home or self-care (01) ==
LOC: M ED 22:00
PROVIDERS: ATTEND Urology
DX: N13.2 Hydronephrosis with renal and ureteral calculous obstruction (principal); M54.9 Dorsalgia, unspecified; G89.29 Other chronic pain; M79.7 Fibromyalgia; M72.2 Plantar fascial fibromatosis; F32.A Depression, unspecified; F41.9 Anxiety disorder, unspecified; D64.9 Anemia, unspecified; Z86.16 Personal history of COVID-19; Z79.899 Other long term (current) drug therapy; Z88.8 Allergy status to other drugs, medicaments and biological substances
CPT/HCPCS: 52332; 74176; 74420; 80048; 80076; 81001; 82150; 83690; 85025; 85610; 87631; 93041; 96374; 96375; 99285; C1769; C2617; J0690; J1100; J1885; J2250; J2270; J2405; J2765; J3010; Q9967

== ENCOUNTER → 2022-04-11 | Outpatient (CLI) | payer OTHER ==
[~2022-04-11] MED LIST changes: +GABA-283 PO; +HYDR-3713 PO; +MACR100C43 PO; +MELA10TA14 PO; -MELA10TA6 PO; +OXYB5TAB10 PO; +PYRI1TAB5 PO
== END ==
LOC: M PAIN 14:45
PROVIDERS: ATTEND Anesthesiology
DX: M79.10 Myalgia, unspecified site (principal); M79.18 Myalgia, other site; M54.50 Low back pain, unspecified; E66.9 Obesity, unspecified; F32.A Depression, unspecified; M72.2 Plantar fascial fibromatosis; M79.7 Fibromyalgia; Z87.442 Personal history of urinary calculi; Z98.84 Bariatric surgery status; Z90.49 Acquired absence of other specified parts of digestive tract; Z79.899 Other long term (current) drug therapy; Z88.8 Allergy status to other drugs, medicaments and biological substances; Z68.32 Body mass index [BMI] 32.0-32.9, adult

== ENCOUNTER → 2022-04-27 | Outpatient (CLI) | payer OTHER ==
[2022-04-27 17:57] LABS: HEMATOCRIT 34.4 % (36.0-47.0); MEAN CORPUSCULAR HEMOGLOBIN 26.1 pg (27.0-33.0); MEAN CORPUSCULAR HGB CONC 29.1 g/dl (32.0-36.5); MEAN CORPUSCULAR VOLUME 89.8 fl (80.0-96.0); PLATELET COUNT, AUTOMATED 375 10^3/uL (150-450); RED BLOOD COUNT 3.83 10^6/uL (4.00-5.40); WHITE BLOOD COUNT 7.3 10^3/uL (4.0-10.0)
[2022-04-27 18:28] LABS: ALBUMIN 3.3 GM/DL (3.2-5.2); ALT/SGPT 293 U/L (12-78); BILIRUBIN,TOTAL 0.5 MG/DL (0.2-1.0); BLOOD UREA NITROGEN 15 MG/DL (7-18); CALCIUM LEVEL 8.5 MG/DL (8.5-10.1); CARBON DIOXIDE LEVEL 33 MEQ/L (21-32); CHLORIDE LEVEL 104 MEQ/L (98-107); CREATININE FOR GFR 0.96 MG/DL (0.55-1.30); GLOMERULAR FILTRATION RATE > 60.0 (>51); GLUCOSE, FASTING 95 MG/DL (70-100); POTASSIUM SERUM 4.3 MEQ/L (3.5-5.1); SODIUM LEVEL 140 MEQ/L (136-145); TOTAL PROTEIN 6.3 GM/DL (6.4-8.2)
== END ==
LOC: M RAD 16:42
PROVIDERS: ATTEND Urology
DX: N20.1 Calculus of ureter (principal)

== ENCOUNTER → 2022-05-02 | Outpatient (CLI) | payer OTHER | LOC: M LABSMTC 11:53 | PROVIDERS: ATTEND Anesthesiology | DX: Z01.818 Encounter for other preprocedural examination (principal); Z11.52 Encounter for screening for COVID-19 ==

== ENCOUNTER 2022-05-07 08:23 | Day surgery (SDC) | payer OTHER ==
[~2022-05-07] VITALS: Ht 154.9 cm; Wt 82.6 kg
[~2022-05-07 08:23] MED LIST changes: +BENA25CA4 PO; +ZYRTTAB8 PO; +ceFAZolin SOD 2 GM in IV 1 EA IV ONE
[2022-05-07] MEDS ORDERED: LR 1,000 ML IV SCH ×2 (09:25→13:50)
[2022-05-07] MEDS ORDERED: MIDAZOLAM INJ 2MG/2ML VIAL (J2250 PER 1MG) As Ordered ONE (10:34)
[2022-05-07] MEDS ORDERED: fentaNYL 100 MCG/2 ML INJECTION As Ordered ONE ×2 (10:34→13:48)
[2022-05-07] MEDS ORDERED: LIDOCAINE 2% 100MG/5ML SDV (FOR ANES.) As Ordered ONE (10:36)
[2022-05-07] MEDS ORDERED: propofoL 200 MG/20 ML VIAL As Ordered ONE (10:36)
[2022-05-07] MEDS ORDERED: ISOVUE-300 61% 50ML VIAL As Ordered ONE (10:43)
[2022-05-07] MEDS ORDERED: dexameTHASONE 4 MG/ML 1ML VIAL (J1100 PER 1MG) As Ordered ONE (12:57)
[2022-05-07] MEDS ORDERED: ONDANSETRON 4MG 2ML VIAL As Ordered ONE ×2 (12:57→13:57)
[2022-05-07] MEDS ORDERED: oxyCODONE 5MG TAB PO PRN (13:50)
[2022-05-07] MEDS ORDERED: ONDANSETRON 4MG 2ML VIAL IV PRN (13:50)
[2022-05-07] MEDS ORDERED: fentaNYL 100 MCG/2 ML INJECTION IV PRN (13:50)
[2022-05-07] MEDS ORDERED: HYDR-3713 PO (13:52)
[2022-05-07] MEDS ORDERED: MACR100C43 PO (13:52)
[2022-05-07] MEDS ORDERED: PYRI1TAB5 PO (13:52)
[2022-05-07] MEDS ORDERED: OXYB5TAB10 PO (13:52)
[2022-05-07] MEDS ORDERED: METOCLOPRAMIDE INJ 10MG/2ML VIAL (J2765 PER 1) IV PRN (14:15)
[2022-05-07 15:29] VITALS: BP 130/63
== END 2022-05-07 15:50 | disposition home or self-care (01) ==
LOC: M SDC 08:23
PROVIDERS: ATTEND Urology
DX: N13.5 Crossing vessel and stricture of ureter without hydronephrosis (principal); N20.0 Calculus of kidney; M54.9 Dorsalgia, unspecified; R94.5 Abnormal results of liver function studies; Z98.84 Bariatric surgery status; Z91.013 Allergy to seafood; Z88.8 Allergy status to other drugs, medicaments and biological substances; Z88.2 Allergy status to sulfonamides
CPT/HCPCS: 52356; 74420; C1769; C2617; J0690; J1100; J2250; J2405; J2765; J3010; Q9967

== ENCOUNTER → 2022-05-10 | Outpatient (REF) | payer OTHER ==
[~2022-05-10] MED LIST changes: -ceFAZolin SOD 2 GM in IV 1 EA IV ONE
[2022-05-10 18:08] LABS: FERRITIN 22 NG/ML (8-252); IRON (FE) 98 UG/DL (50-170); TOTAL IRON BINDING CAPACITY 445 UG/DL (250-450)
[2022-05-10 19:11] LABS: HEPATITIS B SURFACE ANTIGEN NEGATIVE (NEGATIVE)
[2022-05-10 19:40] LABS: HEPATITIS B CORE ANTIBODY IGM NEGATIVE (NEGATIVE); HEPATITIS C VIRUS ABY INDEX < 0.0 INDEX (<0.8)
[2022-05-12 21:07] LABS: ANA (HEP2) Negative (.); EBV AB TO NUCLEAR ANTIGEN >600.0 U/mL (0.0-17.9); EBV VIRAL CAPSID AG IgG <18.0 U/mL (0.0-17.9); EBV VIRAL CAPSID AG IgM <36.0 U/mL (0.0-35.9)
== END ==
LOC: M LAB REF 16:07
PROVIDERS: ATTEND Physician Assistant Medical
DX: R74.01 Elevation of levels of liver transaminase levels (principal)

== ENCOUNTER → 2022-06-15 | Outpatient (REF) | payer OTHER | LOC: M LAB REF 16:06 | PROVIDERS: ATTEND Internal Medicine | DX: Z01.818 Encounter for other preprocedural examination (principal) ==

== ENCOUNTER → 2022-06-19 | Outpatient (POV) | payer OTHER ==
[~2022-06-19] VITALS: Ht 154.9 cm; Wt 79.5 kg
[2022-06-19 08:50] VITALS: BP 140/75
== END ==
LOC: M IRPOV 08:41
PROVIDERS: ATTEND Radiology Diagnostic Radiology
DX: N20.0 Calculus of kidney (principal); Z79.51 Long term (current) use of inhaled steroids; Z79.899 Other long term (current) drug therapy; Z84.1 Family history of disorders of kidney and ureter; Z88.8 Allergy status to other drugs, medicaments and biological substances

== ENCOUNTER → 2022-06-25 | Outpatient (CLI) | payer OTHER | LOC: M LABSMTC 11:51 | PROVIDERS: ATTEND Anesthesiology | DX: Z11.52 Encounter for screening for COVID-19 (principal) ==

== ENCOUNTER 2022-06-28 08:54 | Day surgery (SDC) | payer OTHER ==
[~2022-06-28] VITALS: Ht 154.9 cm; Wt 79.4 kg
[~2022-06-28 08:54] MED LIST changes: -BACT800T5 PO; -COLA100C5 PO; -HYDR-3715 PO; -ISOVUE-300 61% 50ML VIAL As Ordered ONE; -LIDOCAINE 1% MDV 20ML VIAL As Ordered ONE; -MIDAZOLAM INJ 2MG/2ML VIAL (J2250 PER 1MG) As Ordered ONE; -NS 1,000 ML IV SCH; -ceFAZolin 2 GM/D5W 50 ML IV BAG (J0690 PER 500MG) As Ordered ONE; -ceFAZolin SOD 2 GM in D5W MINI-BAG PLUS 50 ML IV ONE; +ceFAZolin SOD 2 GM in IV 1 EA IV ONE; -diphenhydrAMINE 50MG/ML VIAL (J1200) As Ordered ONE; -fentaNYL 100 MCG/2 ML INJECTION As Ordered ONE
[2022-06-28] MEDS ORDERED: LR 1,000 ML IV SCH ×2 (09:10→14:00)
[2022-06-28] MEDS ORDERED: fentaNYL 100 MCG/2 ML INJECTION As Ordered ONE (09:53)
[2022-06-28] MEDS ORDERED: MIDAZOLAM INJ 2MG/2ML VIAL (J2250 PER 1MG) As Ordered ONE (09:53)
[2022-06-28] MEDS ORDERED: dexameTHASONE 4 MG/ML 1ML VIAL (J1100 PER 1MG) As Ordered ONE (10:11)
[2022-06-28] MEDS ORDERED: LIDOCAINE 2% 100MG/5ML SDV (FOR ANES.) As Ordered ONE (10:11)
[2022-06-28] MEDS ORDERED: ROCURONIUM BROMIDE 50 MG/5 ML VIAL As Ordered ONE (10:11)
[2022-06-28] MEDS ORDERED: ONDANSETRON 4MG 2ML VIAL As Ordered ONE ×2 (10:11→14:14)
[2022-06-28] MEDS ORDERED: propofoL 200 MG/20 ML VIAL As Ordered ONE (10:11)
[2022-06-28] MEDS ORDERED: ACETAMINOPHEN 1000MG 100ML IV BTL (OFIRMEV) (J0131 PER 10MG) As Ordered ONE (11:43)
[2022-06-28] MEDS: ISOVUE-300 61% 50ML VIAL As Ordered ONE ×2 (11:57→13:39)
[2022-06-28] MEDS ORDERED: HYDROmorphone HCL 2MG/ML 1ML VIAL As Ordered ONE (12:39)
[2022-06-28] MEDS ORDERED: SUGAMMADEX SODIUM 500 MG/5 ML VIAL (BRIDION) As Ordered ONE (13:34)
[2022-06-28] MEDS: ONDANSETRON 4MG 2ML VIAL IV PRN ×2 (13:50→14:15)
[2022-06-28] MEDS ORDERED: fentaNYL 100 MCG/2 ML INJECTION IV PRN (14:00)
[2022-06-28] MEDS ORDERED: HYDROMORPHONE HCL 0.5 MG/ 0.5 ML SYRINGE (J1170 PER 1) IV PRN (14:00)
[2022-06-28] MEDS ORDERED: METOCLOPRAMIDE INJ 10MG/2ML VIAL (J2765 PER 1) IV PRN (14:00)
[2022-06-28] MEDS: oxyCODONE 5MG TAB PO PRN ×2 (14:27→15:19)
[2022-06-28] MEDS ORDERED: ONDANSETRON 4MG 2ML VIAL IV PRN (14:30)
[2022-06-28] MEDS ORDERED: ACETAMINOPHEN TAB 650MG DOSE (2X325MG) PO PRN (14:30)
[2022-06-28] MEDS: CIPROFLOXACIN 400 MG in IV 1 EA IV SCH (14:43)
[2022-06-28 14:45] LABS: HEMOGLOBIN 9.7 g/dl (12.0-15.5); LYMPH % 11.7 % (24.0-44.0); MEAN CORPUSCULAR HEMOGLOBIN 26.9 pg (27.0-33.0); MEAN CORPUSCULAR HGB CONC 30.3 g/dl (32.0-36.5); MEAN CORPUSCULAR VOLUME 88.9 fl (80.0-96.0); NEUTROPHILS % 84.7 % (36.0-66.0); PLATELET COUNT, AUTOMATED 348 10^3/uL (150-450); WHITE BLOOD COUNT 11.2 10^3/uL (4.0-10.0)
[2022-06-28 14:46] LABS: BASO # 0.1 10^3/uL (0.0-0.2); BASO % 0.6 % (0.0-1.0); EOS % 0.4 % (0.0-3.0); LYMPH # 1.3 10^3/uL (1.5-5.0); MONO # 0.2 10^3/uL (0.0-0.8); NEUTROPHILS # 9.5 10^3/uL (1.5-8.5)
[2022-06-28 15:05] VITALS: BP 111/52
[2022-06-28 15:19] LABS: ALBUMIN 3.2 GM/DL (3.2-5.2); BILIRUBIN,TOTAL 0.2 MG/DL (0.2-1.0); CALCIUM LEVEL 8.5 MG/DL (8.5-10.1); CREATININE FOR GFR 1.25 MG/DL (0.55-1.30); GLOMERULAR FILTRATION RATE 47.2 (>51); POTASSIUM SERUM 4.5 MEQ/L (3.5-5.1)
[2022-06-28] MEDS: D5W/0.45% SODIUM CHLORIDE 1,000 ML IV SCH ×2 (15:19→20:46)
[2022-06-28 15:37] VITALS: BP 112/59
[2022-06-28 16:32] VITALS: BP 118/59
[2022-06-28 17:35] VITALS: BP 117/58
[2022-06-28] MEDS: NORCO, ANEXSIA 5/325MG TABLET (HYDROcodone/ACETAMINOPHEN) PO PRN (18:24)
[2022-06-28 18:33] VITALS: BP 119/57
[2022-06-28] MEDS: GABAPENTIN 400MG CAP PO SCH (20:45)
[2022-06-28 21:59] VITALS: BP 130/68
[2022-06-28] MEDS: MORPHINE 2 MG/ML 1ML VIAL IV PRN (22:48)
[2022-06-29] MEDS: NORCO, ANEXSIA 5/325MG TABLET (HYDROcodone/ACETAMINOPHEN) PO PRN ×5 (00:49→22:21)
[2022-06-29] MEDS: CIPROFLOXACIN 400 MG in IV 1 EA IV SCH ×2 (02:09→15:10)
[2022-06-29] MEDS: MORPHINE 2 MG/ML 1ML VIAL IV PRN ×2 (02:09→20:14)
[2022-06-29 02:58] VITALS: BP 97/49
[2022-06-29] MEDS: D5W/0.45% SODIUM CHLORIDE 1,000 ML IV SCH (05:02)
[2022-06-29 06:51] VITALS: BP 106/50
[2022-06-29 07:00] LABS: BASO % 0.4 % (0.0-1.0); EOS # 0.1 10^3/uL (0.0-0.5); EOS % 0.8 % (0.0-3.0); HEMATOCRIT 24.1 % (36.0-47.0); HEMOGLOBIN 7.4 g/dl (12.0-15.5); LYMPH # 3.2 10^3/uL (1.5-5.0); LYMPH % 29.6 % (24.0-44.0); MEAN CORPUSCULAR HEMOGLOBIN 27.1 pg (27.0-33.0); MEAN CORPUSCULAR HGB CONC 30.7 g/dl (32.0-36.5); MEAN CORPUSCULAR VOLUME 88.3 fl (80.0-96.0); NEUTROPHILS # 6.4 10^3/uL (1.5-8.5); NEUTROPHILS % 59.8 % (36.0-66.0); PLATELET COUNT, AUTOMATED 292 10^3/uL (150-450); RED BLOOD COUNT 2.73 10^6/uL (4.00-5.40); WHITE BLOOD COUNT 10.6 10^3/uL (4.0-10.0)
[2022-06-29 07:53] LABS: ALBUMIN 2.6 GM/DL (3.2-5.2); BILIRUBIN,TOTAL 0.2 MG/DL (0.2-1.0); CALCIUM LEVEL 7.6 MG/DL (8.5-10.1); CREATININE FOR GFR 1.18 MG/DL (0.55-1.30); GLOMERULAR FILTRATION RATE 50.4 (>51); POTASSIUM SERUM 3.4 MEQ/L (3.5-5.1); TOTAL PROTEIN 5.6 GM/DL (6.4-8.2)
[2022-06-29] MEDS: GABAPENTIN 400MG CAP PO SCH ×3 (08:51→20:14)
[2022-06-29] MEDS: DULoxetine 30MG CAPSULE (CYMBALTA) PO SCH (08:52)
[2022-06-29] MEDS: LORATADINE 10 MG TAB PO SCH (08:52)
[2022-06-29 12:46] LABS: BASO % 0.3 % (0.0-1.0); EOS # 0.2 10^3/uL (0.0-0.5); EOS % 1.3 % (0.0-3.0); HEMATOCRIT 25.6 % (36.0-47.0); HEMOGLOBIN 7.9 g/dl (12.0-15.5); LYMPH # 3.7 10^3/uL (1.5-5.0); LYMPH % 30.6 % (24.0-44.0); MEAN CORPUSCULAR HEMOGLOBIN 26.9 pg (27.0-33.0); MEAN CORPUSCULAR HGB CONC 30.9 g/dl (32.0-36.5); MEAN CORPUSCULAR VOLUME 87.1 fl (80.0-96.0); MONO # 1.1 10^3/uL (0.0-0.8); MONO % 9.4 % (2.0-8.0); NEUTROPHILS # 6.9 10^3/uL (1.5-8.5); NEUTROPHILS % 58.1 % (36.0-66.0); PLATELET COUNT, AUTOMATED 322 10^3/uL (150-450); RED BLOOD COUNT 2.94 10^6/uL (4.00-5.40)
[2022-06-29 14:26] VITALS: BP 139/65
[2022-06-29] MEDS: KCL 10MEQ/100ML SWI (KRUN) X 2 DOSES (20MEQ TOTAL) IV SCH ×4 (16:08→17:09)
[2022-06-29 19:32] VITALS: BP 140/64
[2022-06-30] VITALS (13 sets, daily range): BP systolic 105–152; BP diastolic 52–80
[2022-06-30] MEDS: CIPROFLOXACIN 400 MG in IV 1 EA IV SCH ×2 (03:13→15:09)
[2022-06-30] MEDS: NORCO, ANEXSIA 5/325MG TABLET (HYDROcodone/ACETAMINOPHEN) PO PRN ×4 (03:14→22:07)
[2022-06-30 06:57] LABS: BASO # 0.1 10^3/uL (0.0-0.2); BASO % 0.7 % (0.0-1.0); EOS # 0.2 10^3/uL (0.0-0.5); EOS % 2.2 % (0.0-3.0); HEMATOCRIT 23.7 % (36.0-47.0); HEMOGLOBIN 7.4 g/dl (12.0-15.5); LYMPH % 31.6 % (24.0-44.0); MEAN CORPUSCULAR HEMOGLOBIN 27.3 pg (27.0-33.0); MEAN CORPUSCULAR HGB CONC 31.2 g/dl (32.0-36.5); MEAN CORPUSCULAR VOLUME 87.5 fl (80.0-96.0); MONO % 10.8 % (2.0-8.0); NEUTROPHILS # 5.2 10^3/uL (1.5-8.5); NEUTROPHILS % 54.2 % (36.0-66.0); PLATELET COUNT, AUTOMATED 290 10^3/uL (150-450); RED BLOOD COUNT 2.71 10^6/uL (4.00-5.40); WHITE BLOOD COUNT 9.6 10^3/uL (4.0-10.0)
[2022-06-30 07:23] LABS: ALBUMIN 2.6 GM/DL (3.2-5.2); BILIRUBIN,TOTAL 0.2 MG/DL (0.2-1.0); CALCIUM LEVEL 8.3 MG/DL (8.5-10.1); CREATININE FOR GFR 1.1 MG/DL (0.55-1.30); GLOMERULAR FILTRATION RATE 54.7 (>51); POTASSIUM SERUM 3.7 MEQ/L (3.5-5.1); TOTAL PROTEIN 5.8 GM/DL (6.4-8.2)
[2022-06-30] MEDS: LORATADINE 10 MG TAB PO SCH (08:06)
[2022-06-30] MEDS: GABAPENTIN 400MG CAP PO SCH ×3 (08:06→20:24)
[2022-06-30] MEDS: DULoxetine 30MG CAPSULE (CYMBALTA) PO SCH (08:06)
[2022-06-30 18:34] LABS: HEMATOCRIT 34.3 % (36.0-47.0); HEMOGLOBIN 10.8 g/dl (12.0-15.5)
[2022-07-01 02:00] VITALS: BP 104/55
[2022-07-01] MEDS: CIPROFLOXACIN 400 MG in IV 1 EA IV SCH (02:45)
[2022-07-01 06:26] VITALS: BP 114/58
[2022-07-01] MEDS: NORCO, ANEXSIA 5/325MG TABLET (HYDROcodone/ACETAMINOPHEN) PO PRN ×2 (08:17→13:29)
[2022-07-01] MEDS: GABAPENTIN 400MG CAP PO SCH (08:17)
[2022-07-01] MEDS: LORATADINE 10 MG TAB PO SCH (08:17)
[2022-07-01] MEDS: DULoxetine 30MG CAPSULE (CYMBALTA) PO SCH (08:17)
[2022-07-01 10:00] VITALS: BP 111/65
[2022-07-01 11:08] LABS: HEMATOCRIT 30.7 % (36.0-47.0); HEMOGLOBIN 9.6 g/dl (12.0-15.5); MEAN CORPUSCULAR HEMOGLOBIN 26.5 pg (27.0-33.0); MEAN CORPUSCULAR HGB CONC 31.3 g/dl (32.0-36.5); MEAN CORPUSCULAR VOLUME 84.8 fl (80.0-96.0); PLATELET COUNT, AUTOMATED 327 10^3/uL (150-450); RED BLOOD COUNT 3.62 10^6/uL (4.00-5.40)
[2022-07-01 11:36] LABS: CALCIUM LEVEL 8.5 MG/DL (8.5-10.1); CREATININE FOR GFR 1.27 MG/DL (0.55-1.30); GLOMERULAR FILTRATION RATE 46.3 (>51); POTASSIUM SERUM 3.7 MEQ/L (3.5-5.1)
[2022-07-01] MEDS ORDERED: HYDR-3715 PO (11:58)
[2022-07-01] MEDS ORDERED: COLA100C5 PO (11:58)
[2022-07-01] MEDS ORDERED: BACT800T5 PO (11:58)
[2022-07-01] MEDS ORDERED: OXYB5TAB10 PO (11:58)
[2022-07-04 18:07] LABS: Ca Ox Monohydrate 100 % (.); Size 6x5 mm (.)
== END 2022-07-01 13:40 | disposition home or self-care (01) ==
LOC: M SDC 08:54 → UNDOADMIN 08:54 → M OR 08:54 → EDSTATUS 11:05 → M OR 14:50 → M MS5PR 14:50 → M SDC 07-01 13:40 → UNDODISIN 07-01 13:40
PROVIDERS: ATTEND Urology
DX: N20.2 Calculus of kidney with calculus of ureter (principal); Z96.0 Presence of urogenital implants; N99.71 Accidental puncture and laceration of a genitourinary system organ or structure during a genitourinary system procedure; Z87.442 Personal history of urinary calculi; R79.89 Other specified abnormal findings of blood chemistry; F32.A Depression, unspecified; M72.2 Plantar fascial fibromatosis; M79.7 Fibromyalgia; M54.16 Radiculopathy, lumbar region; D50.9 Iron deficiency anemia, unspecified; E78.00 Pure hypercholesterolemia, unspecified; G47.00 Insomnia, unspecified; J45.20 Mild intermittent asthma, uncomplicated; G62.9 Polyneuropathy, unspecified; Z98.84 Bariatric surgery status; Z79.899 Other long term (current) drug therapy; Z79.891 Long term (current) use of opiate analgesic; Z88.8 Allergy status to other drugs, medicaments and biological substances
CPT/HCPCS: 36415; 36430; 50080; 50432; 76000; 80048; 80053; 82365; 85014; 85018; 85025; 85027; 86850; 86900; 86901; 86920; 96365; 96366; 96374; 96375; 96376; C1769; C1887; C1894; C2617; J0131; J0744; J1100; J1170; J2250; J2270; J2405; J3010; P9016; Q9967

== ENCOUNTER → 2022-06-28 | Outpatient (CLI) | payer OTHER ==
[~2022-06-28] MED LIST changes: +BACT800T5 PO; +COLA100C5 PO; +HYDR-3715 PO; +ISOVUE-300 61% 50ML VIAL As Ordered ONE; +LIDOCAINE 1% MDV 20ML VIAL As Ordered ONE; +MIDAZOLAM INJ 2MG/2ML VIAL (J2250 PER 1MG) As Ordered ONE; +NS 1,000 ML IV SCH; +ceFAZolin 2 GM/D5W 50 ML IV BAG (J0690 PER 500MG) As Ordered ONE; +ceFAZolin SOD 2 GM in D5W MINI-BAG PLUS 50 ML IV ONE; +diphenhydrAMINE 50MG/ML VIAL (J1200) As Ordered ONE; +fentaNYL 100 MCG/2 ML INJECTION As Ordered ONE
[2022-06-28 08:35] VITALS: BP 138/71
== END ==
LOC: M IRPRO 06:50
PROVIDERS: ATTEND Radiology Diagnostic Radiology
DX: N13.2 Hydronephrosis with renal and ureteral calculous obstruction (principal); Z79.899 Other long term (current) drug therapy; Z88.8 Allergy status to other drugs, medicaments and biological substances
CPT/HCPCS: 50432; 99152; 99153; C1729; C1769; C1887; C1894; J0690; J1200; J2250; J3010; Q9967

== ENCOUNTER → 2022-07-13 | Outpatient (CLI) | payer OTHER ==
[~2022-07-13] MED LIST changes: +BACT800T5 PO; +COLA100C5 PO; +HYDR-3715 PO; -ceFAZolin SOD 2 GM in IV 1 EA IV ONE
[2022-07-13 17:26] LABS: HEMOGLOBIN 11.9 g/dl (12.0-15.5); MEAN CORPUSCULAR HEMOGLOBIN 26.2 pg (27.0-33.0); MEAN CORPUSCULAR HGB CONC 29.8 g/dl (32.0-36.5); MEAN CORPUSCULAR VOLUME 88.1 fl (80.0-96.0); PLATELET COUNT, AUTOMATED 554 10^3/uL (150-450); RED BLOOD COUNT 4.54 10^6/uL (4.00-5.40); WHITE BLOOD COUNT 10.2 10^3/uL (4.0-10.0)
[2022-07-13 18:19] LABS: ALBUMIN 3.7 GM/DL (3.2-5.2); BILIRUBIN,TOTAL 0.2 MG/DL (0.2-1.0); CALCIUM LEVEL 9.8 MG/DL (8.5-10.1); CREATININE FOR GFR 1.3 MG/DL (0.55-1.30); GLOMERULAR FILTRATION RATE 45.1 (>51); POTASSIUM SERUM 4.7 MEQ/L (3.5-5.1); TOTAL PROTEIN 7.3 GM/DL (6.4-8.2)
== END ==
LOC: M PLALAB 14:43
PROVIDERS: ATTEND Urology
DX: N20.1 Calculus of ureter (principal)

== ENCOUNTER → 2022-07-23 | Outpatient (REF) | payer OTHER ==
[2022-07-25 11:40] LABS: FERRITIN 10.4 NG/ML (7.3-270.7); PERCENT SATURATION 11.6 % (13.2-45.0); PHOSPHORUS LEVEL 4.5 MG/DL (2.5-4.9)
[2022-07-25 12:25] LABS: FOLATE 9.3 NG/ML (>5.4)
== END ==
LOC: M LAB REF 11:17
PROVIDERS: ATTEND Internal Medicine
DX: Z98.84 Bariatric surgery status (principal); D50.9 Iron deficiency anemia, unspecified; L29.9 Pruritus, unspecified

== ENCOUNTER → 2022-08-01 | Outpatient (CLI) | payer OTHER | LOC: M PAIN 11:45 | PROVIDERS: ATTEND Anesthesiology | DX: M54.50 Low back pain, unspecified (principal); M79.18 Myalgia, other site; G89.29 Other chronic pain; M79.7 Fibromyalgia; Z86.59 Personal history of other mental and behavioral disorders; Z98.84 Bariatric surgery status; Z88.8 Allergy status to other drugs, medicaments and biological substances; Z79.899 Other long term (current) drug therapy ==

== ENCOUNTER → 2022-08-06 | Outpatient (CLI) | payer OTHER ==
[2022-08-06 13:45] LABS: HEMATOCRIT 36.6 % (36.0-47.0); HEMOGLOBIN 10.9 g/dl (12.0-15.5); MEAN CORPUSCULAR HEMOGLOBIN 25.6 pg (27.0-33.0); MEAN CORPUSCULAR HGB CONC 29.8 g/dl (32.0-36.5); MEAN CORPUSCULAR VOLUME 86.1 fl (80.0-96.0); PLATELET COUNT, AUTOMATED 299 10^3/uL (150-450); RED BLOOD COUNT 4.25 10^6/uL (4.00-5.40); WHITE BLOOD COUNT 8.3 10^3/uL (4.0-10.0)
[2022-08-06 14:11] LABS: POTASSIUM SERUM 4.6 MMOL/L (3.5-5.1)
[2022-08-06 14:12] LABS: ALBUMIN 3.5 G/DL (3.2-5.2)
[2022-08-06 14:17] LABS: BILIRUBIN,TOTAL 0.3 MG/DL (0.3-1.2); CALCIUM LEVEL 9.3 MG/DL (8.5-10.1)
[2022-08-06 14:19] LABS: CREATININE FOR GFR 1.09 MG/DL (0.55-1.30); GLOMERULAR FILTRATION RATE 55.3 (>51); TOTAL PROTEIN 6.1 G/DL (5.7-8.2)
== END ==
LOC: M PLALAB 11:56
PROVIDERS: ATTEND Urology
DX: Z96.0 Presence of urogenital implants (principal)

== ENCOUNTER → 2022-08-06 | Outpatient (CLI) | payer OTHER | LOC: M LABSMTC 11:39 | PROVIDERS: ATTEND Anesthesiology | DX: Z01.812 Encounter for preprocedural laboratory examination (principal); Z11.52 Encounter for screening for COVID-19 ==

== ENCOUNTER → 2022-08-07 | Outpatient (CLI) | payer OTHER | LOC: M PAIN 16:00 | PROVIDERS: ATTEND Anesthesiology | DX: M54.50 Low back pain, unspecified (principal); M79.10 Myalgia, unspecified site; M79.18 Myalgia, other site; M54.16 Radiculopathy, lumbar region; F32.A Depression, unspecified; M72.2 Plantar fascial fibromatosis; M79.7 Fibromyalgia; Z87.442 Personal history of urinary calculi; Z79.891 Long term (current) use of opiate analgesic; Z79.899 Other long term (current) drug therapy ==

== ENCOUNTER → 2022-09-10 | Outpatient (CLI) | payer OTHER | LOC: M LABSMTC 11:43 | PROVIDERS: ATTEND Anesthesiology | DX: Z01.812 Encounter for preprocedural laboratory examination (principal); Z11.52 Encounter for screening for COVID-19 ==

== ENCOUNTER → 2022-09-11 | Outpatient (REF) | payer OTHER ==
[2022-09-11 18:34] LABS: PERCENT SATURATION 21.2 % (13.2-45.0)
[2022-09-11 18:36] LABS: TOTAL 25(OH) VITAMIN D 25.8 NG/ML (20.0-100.0)
== END ==
LOC: M LAB REF 17:24
PROVIDERS: ATTEND Physician Assistant Medical
DX: D50.9 Iron deficiency anemia, unspecified (principal); Z98.84 Bariatric surgery status; R53.83 Other fatigue

== ENCOUNTER → 2022-09-11 | Outpatient (CLI) | payer OTHER | LOC: M PLALAB 13:53 | PROVIDERS: ATTEND Urology | DX: N20.1 Calculus of ureter (principal) ==

== ENCOUNTER 2022-09-13 09:52 | Day surgery (SDC) | payer OTHER ==
[~2022-09-13] VITALS: Ht 154.9 cm; Wt 77.6 kg
[~2022-09-13 09:52] MED LIST changes: +ceFAZolin SOD 2 GM in IV 1 EA IV ONE
[2022-09-13] MEDS ORDERED: LR 1,000 ML IV SCH ×2 (10:00→14:35)
[2022-09-13] MEDS ORDERED: fentaNYL 250 MCG/5 ML INJECTION As Ordered ONE (10:29)
[2022-09-13] MEDS ORDERED: propofoL 200 MG/20 ML VIAL As Ordered ONE (10:30)
[2022-09-13] MEDS ORDERED: MIDAZOLAM INJ 2MG/2ML VIAL As Ordered ONE (10:30)
[2022-09-13] MEDS ORDERED: ONDANSETRON 4MG 2ML VIAL As Ordered ONE (10:30)
[2022-09-13] MEDS ORDERED: LIDOCAINE 2% 100MG/5ML SDV (FOR ANES.) As Ordered ONE (10:30)
[2022-09-13] MEDS ORDERED: ONDANSETRON 4MG 2ML VIAL IV PRN (14:35)
[2022-09-13] MEDS ORDERED: MACR100C43 PO (14:40)
[2022-09-13] MEDS: fentaNYL 100 MCG/2 ML INJECTION IV PRN ×4 (14:43→15:01)
[2022-09-13] MEDS: oxyCODONE 5MG TAB PO PRN ×2 (14:52→15:24)
[2022-09-13] MEDS: HYDROMORPHONE HCL 0.5 MG/ 0.5 ML SYRINGE IV PRN ×2 (15:09→15:14)
[2022-09-13 15:53] VITALS: BP 118/59
[2022-09-19 13:08] LABS: Ca Ox Monohydrate 100 % (.); Size 3x5 mm (.)
== END 2022-09-13 16:31 | disposition home or self-care (01) ==
LOC: M SDC 09:52
PROVIDERS: ATTEND Urology
DX: N20.1 Calculus of ureter (principal); D64.9 Anemia, unspecified; M19.90 Unspecified osteoarthritis, unspecified site; M79.7 Fibromyalgia; M51.9 Unspecified thoracic, thoracolumbar and lumbosacral intervertebral disc disorder; F41.9 Anxiety disorder, unspecified; F32.A Depression, unspecified; J45.909 Unspecified asthma, uncomplicated; Z79.899 Other long term (current) drug therapy; Z79.891 Long term (current) use of opiate analgesic; Z98.84 Bariatric surgery status
CPT/HCPCS: 52356; 74420; 82365; C1769; C2617; J0690; J1100; J1170; J2250; J2405; J3010

== ENCOUNTER → 2022-09-20 | Outpatient (CLI) | payer OTHER ==
[~2022-09-20] MED LIST changes: -ceFAZolin SOD 2 GM in IV 1 EA IV ONE
== END ==
LOC: M LABSMTC 11:48
PROVIDERS: ATTEND Anesthesiology
DX: Z01.818 Encounter for other preprocedural examination (principal); Z11.52 Encounter for screening for COVID-19

== ENCOUNTER → 2022-10-09 | Outpatient (CLI) | payer OTHER | LOC: M LABSMTC 09:16 | PROVIDERS: ATTEND Anesthesiology | DX: Z01.812 Encounter for preprocedural laboratory examination (principal); Z11.52 Encounter for screening for COVID-19 ==

== ENCOUNTER → 2022-10-12 | Outpatient (CLI) | payer OTHER ==
[~2022-10-12] MED LIST changes: +BUPIVACAINE HCL 0.25% 10ML VIAL As Ordered ONE; +BUPIVACAINE HCL 0.25% 30ML VIAL As Ordered ONE; +NORCO, ANEXSIA 5/325MG TABLET (HYDROcodone/ACETAMINOPHEN) As Ordered ONE; +TRIAMCINOLONE ACETONIDE SUSP 40MG/ML 1ML VIAL As Ordered ONE; +diazePAM 5MG TABLET As Ordered ONE
== END ==
LOC: M PAIN 14:30
PROVIDERS: ATTEND Anesthesiology
DX: M79.18 Myalgia, other site (principal); F32.A Depression, unspecified; M79.7 Fibromyalgia; M72.2 Plantar fascial fibromatosis; Z98.84 Bariatric surgery status; Z79.891 Long term (current) use of opiate analgesic; Z79.899 Other long term (current) drug therapy; Z88.8 Allergy status to other drugs, medicaments and biological substances
CPT/HCPCS: 20552; J3301; S0020

== ENCOUNTER → 2022-11-30 | Outpatient (CLI) | payer OTHER ==
[~2022-11-30] MED LIST changes: -BUPIVACAINE HCL 0.25% 10ML VIAL As Ordered ONE; -BUPIVACAINE HCL 0.25% 30ML VIAL As Ordered ONE; -NORCO, ANEXSIA 5/325MG TABLET (HYDROcodone/ACETAMINOPHEN) As Ordered ONE; -TRIAMCINOLONE ACETONIDE SUSP 40MG/ML 1ML VIAL As Ordered ONE; -diazePAM 5MG TABLET As Ordered ONE
== END ==
LOC: M PAIN 15:45 → M TMPAIN 15:45
PROVIDERS: ATTEND Anesthesiology
DX: G89.29 Other chronic pain (principal); M48.062 Spinal stenosis, lumbar region with neurogenic claudication; F32.A Depression, unspecified; M72.2 Plantar fascial fibromatosis; M79.7 Fibromyalgia; Z87.442 Personal history of urinary calculi; Z79.891 Long term (current) use of opiate analgesic; Z79.899 Other long term (current) drug therapy; Z88.8 Allergy status to other drugs, medicaments and biological substances

== ENCOUNTER → 2023-02-25 | Outpatient (REF) | payer OTHER | LOC: M LAB REF 16:15 | PROVIDERS: ATTEND Physician Assistant Medical | DX: R53.83 Other fatigue (principal); M25.50 Pain in unspecified joint ==

== ENCOUNTER → 2023-02-28 | Outpatient (CLI) | payer OTHER | LOC: M PAIN 13:45 | PROVIDERS: ATTEND Nurse Practitioner Family | DX: M48.00 Spinal stenosis, site unspecified (principal); G89.29 Other chronic pain; Z79.891 Long term (current) use of opiate analgesic; M51.16 Intervertebral disc disorders with radiculopathy, lumbar region; F32.A Depression, unspecified; M72.2 Plantar fascial fibromatosis; M79.7 Fibromyalgia; Z79.899 Other long term (current) drug therapy; Z88.8 Allergy status to other drugs, medicaments and biological substances ==

== ENCOUNTER → 2023-04-15 | Outpatient (CLI) | payer OTHER ==
[~2023-04-15] MED LIST changes: -AMIT25TA17 PO; +AMIT25TA19 PO; +DOXE25CA PO; +DUPI300P SC; +FLUO10CA18 PO; -GABA-283 PO; +GABA-284 PO; +TIZA6CAP PO
[2023-04-15 17:34] LABS: HEMATOCRIT 34.9 % (36.0-47.0); HEMOGLOBIN 10.5 g/dl (12.0-15.5); MEAN CORPUSCULAR HEMOGLOBIN 23.3 pg (27.0-33.0); MEAN CORPUSCULAR HGB CONC 30.1 g/dl (32.0-36.5); MEAN CORPUSCULAR VOLUME 77.6 fl (80.0-96.0); PLATELET COUNT, AUTOMATED 428 10^3/uL (150-450); WHITE BLOOD COUNT 10.2 10^3/uL (4.0-10.0)
[2023-04-15 18:04] LABS: ALBUMIN 3.6 G/DL (3.2-5.2); ALKALINE PHOSPHATASE 177 U/L (46-116); ALT/SGPT 17 U/L (7.0-40); AST/SGOT < 8 U/L (<34); BILIRUBIN,TOTAL 0.2 MG/DL (0.3-1.2); BLOOD UREA NITROGEN 16 MG/DL (9-23); CALCIUM LEVEL 9.2 MG/DL (8.5-10.1); CARBON DIOXIDE LEVEL 29 MMOL/L (20-31); CHLORIDE LEVEL 104 MMOL/L (98-107); CREATININE FOR GFR 0.95 MG/DL (0.55-1.30); GLOMERULAR FILTRATION RATE > 60.0 (>51); GLUCOSE, FASTING 76 MG/DL (60-100); POTASSIUM SERUM 4.4 MMOL/L (3.5-5.1); SODIUM LEVEL 139 MMOL/L (136-145); TOTAL PROTEIN 6.7 G/DL (5.7-8.2)
== END ==
LOC: M PLALAB 15:04
PROVIDERS: ATTEND Urology
DX: N20.0 Calculus of kidney (principal)

== ENCOUNTER → 2023-04-17 | Outpatient (CLI) | payer OTHER | LOC: M WUC 15:41 | PROVIDERS: ATTEND Internal Medicine | DX: Z01.818 Encounter for other preprocedural examination (principal) ==

== ENCOUNTER 2023-04-18 08:51 | Day surgery (SDC) | payer OTHER ==
[~2023-04-18] VITALS: Ht 154.9 cm; Wt 86.8 kg
[~2023-04-18 08:51] MED LIST changes: +ceFAZolin SOD 2 GM in IV 1 EA IV ONE
[2023-04-18] MEDS ORDERED: LR 1,000 ML IV SCH (09:35)
[2023-04-18] MEDS ORDERED: propofoL 200 MG/20 ML VIAL As Ordered ONE ×2 (10:01→10:53)
[2023-04-18] MEDS ORDERED: LIDOCAINE 2% 100MG/5ML SDV (FOR ANES.) As Ordered ONE (10:01)
[2023-04-18] MEDS ORDERED: fentaNYL 100 MCG/2 ML INJECTION As Ordered ONE (10:01)
[2023-04-18] MEDS ORDERED: MIDAZOLAM INJ 2MG/2ML VIAL As Ordered ONE (10:02)
[2023-04-18] MEDS ORDERED: MACR100C43 PO (10:43)
[2023-04-18] MEDS ORDERED: HYDR-3713 PO (11:20)
[2023-04-18] MEDS ORDERED: oxyCODONE 5MG TAB PO STA (11:22)
[2023-04-18 12:05] VITALS: BP 137/62; TEMP 97.1; O2SAT 98
== END 2023-04-18 13:05 | disposition home or self-care (01) ==
LOC: M SDC 08:51
PROVIDERS: ATTEND Urology
DX: N20.0 Calculus of kidney (principal); Z79.899 Other long term (current) drug therapy; Z88.8 Allergy status to other drugs, medicaments and biological substances
CPT/HCPCS: 50590; 74018; J0690; J2250; J3010

== ENCOUNTER → 2023-04-30 | Outpatient (CLI) | payer OTHER ==
[~2023-04-30] MED LIST changes: +ISOVUE-M 300 61% 15ML VIAL As Ordered ONE; +LIDOCAINE 1% SDV 30ML VIAL As Ordered ONE; +NORCO, ANEXSIA 5/325MG TABLET (HYDROcodone/ACETAMINOPHEN) As Ordered ONE; -ceFAZolin SOD 2 GM in IV 1 EA IV ONE; +diazePAM 5MG TABLET As Ordered ONE; +methylPREDNISolone SUSP 40MG/ML 1ML VIAL (DEPO MEDROL) As Ordered ONE
== END ==
LOC: M PAIN 14:00
PROVIDERS: ATTEND Anesthesiology
DX: M51.16 Intervertebral disc disorders with radiculopathy, lumbar region (principal); E66.9 Obesity, unspecified; F32.A Depression, unspecified; M79.7 Fibromyalgia; M72.2 Plantar fascial fibromatosis; Z79.891 Long term (current) use of opiate analgesic; Z79.899 Other long term (current) drug therapy; Z88.8 Allergy status to other drugs, medicaments and biological substances; Z68.34 Body mass index [BMI] 34.0-34.9, adult
CPT/HCPCS: 62323; J1030; Q9967

== ENCOUNTER → 2023-05-16 | Outpatient (CLI) | payer OTHER ==
[~2023-05-16] MED LIST changes: -ISOVUE-M 300 61% 15ML VIAL As Ordered ONE; -LIDOCAINE 1% SDV 30ML VIAL As Ordered ONE; -NORCO, ANEXSIA 5/325MG TABLET (HYDROcodone/ACETAMINOPHEN) As Ordered ONE; -diazePAM 5MG TABLET As Ordered ONE; -methylPREDNISolone SUSP 40MG/ML 1ML VIAL (DEPO MEDROL) As Ordered ONE
== END ==
LOC: M PLAIMG 09:02
PROVIDERS: ATTEND Urology
DX: N20.1 Calculus of ureter (principal)

== ENCOUNTER → 2023-06-18 | Outpatient (REF) | LOC: M EMP 15:49 | PROVIDERS: ATTEND Family Medicine | DX: Z11.52 Encounter for screening for COVID-19 (principal) ==

== ENCOUNTER → 2023-07-02 | Outpatient (CLI) | payer OTHER ==
[~2023-07-02] MED LIST changes: -OXYB5TAB10 PO; +OXYB5TAB11 PO
== END ==
LOC: M RAD 17:41
PROVIDERS: ATTEND Urology
DX: R10.9 Unspecified abdominal pain (principal)

== ENCOUNTER → 2023-08-09 | Outpatient (CLI) | payer OTHER ==
[~2023-08-09] MED LIST changes: +ISOVUE-M 300 61% 15ML VIAL As Ordered ONE; +LIDOCAINE 1% SDV 30ML VIAL As Ordered ONE; +NORCO, ANEXSIA 5/325MG TABLET (HYDROcodone/ACETAMINOPHEN) As Ordered ONE; +dexAMETHasone 10MG/1ML VIAL PRES.FREE As Ordered ONE; +diazePAM 5MG TABLET As Ordered ONE
== END ==
LOC: M PAIN 12:45
PROVIDERS: ATTEND Anesthesiology
DX: M51.16 Intervertebral disc disorders with radiculopathy, lumbar region (principal); F32.A Depression, unspecified; M72.2 Plantar fascial fibromatosis; M79.7 Fibromyalgia; Z79.891 Long term (current) use of opiate analgesic; Z79.899 Other long term (current) drug therapy; Z88.8 Allergy status to other drugs, medicaments and biological substances
CPT/HCPCS: 64483; J0665; J1100; Q9967

== ENCOUNTER → 2023-08-13 | Outpatient (CLI) | payer OTHER ==
[~2023-08-13] MED LIST changes: -ISOVUE-M 300 61% 15ML VIAL As Ordered ONE; -LIDOCAINE 1% SDV 30ML VIAL As Ordered ONE; -NORCO, ANEXSIA 5/325MG TABLET (HYDROcodone/ACETAMINOPHEN) As Ordered ONE; -dexAMETHasone 10MG/1ML VIAL PRES.FREE As Ordered ONE; -diazePAM 5MG TABLET As Ordered ONE
== END ==
LOC: M PAIN 17:30
PROVIDERS: ATTEND Anesthesiology
DX: M54.50 Low back pain, unspecified (principal); M53.3 Sacrococcygeal disorders, not elsewhere classified; G89.29 Other chronic pain; F32.A Depression, unspecified; M72.2 Plantar fascial fibromatosis; M79.7 Fibromyalgia; Z79.891 Long term (current) use of opiate analgesic; Z79.899 Other long term (current) drug therapy; Z88.8 Allergy status to other drugs, medicaments and biological substances

== ENCOUNTER → 2023-08-22 | Outpatient (CLI) | payer OTHER | LOC: M PAIN 17:30 | PROVIDERS: ATTEND Anesthesiology | DX: M51.16 Intervertebral disc disorders with radiculopathy, lumbar region (principal); M53.3 Sacrococcygeal disorders, not elsewhere classified; Z88.8 Allergy status to other drugs, medicaments and biological substances; Z79.899 Other long term (current) drug therapy ==

== ENCOUNTER 2023-10-24 10:06 | Emergency (ER) | payer OTHER ==
[~2023-10-24] VITALS: Ht 154.9 cm; Wt 84.7 kg
[~2023-10-24 10:06] MED LIST changes: -HYDR-3910 PO; +HYDR25TA87 PO; -OXYB5TAB11 PO; +OXYB5TAB14 PO
[2023-10-24 13:00] VITALS: BP 139/65; TEMP 95.9; O2SAT 99
== END 2023-10-24 13:01 | disposition home or self-care (01) ==
LOC: M ED 10:06
DX: S01.512A Laceration without foreign body of oral cavity, initial encounter (principal); W01.0XXA Fall on same level from slipping, tripping and stumbling without subsequent striking against object, initial encounter; Y92.481 Parking lot as the place of occurrence of the external cause; Y99.9 Unspecified external cause status; Y93.9 Activity, unspecified; F41.9 Anxiety disorder, unspecified; F32.A Depression, unspecified; Z88.8 Allergy status to other drugs, medicaments and biological substances; Z79.1 Long term (current) use of non-steroidal anti-inflammatories (NSAID); Z79.51 Long term (current) use of inhaled steroids; Z79.899 Other long term (current) drug therapy

== ENCOUNTER → 2023-10-31 | Outpatient (CLI) | payer OTHER | LOC: M PAIN 15:00 | PROVIDERS: ATTEND Nurse Practitioner Family | DX: M47.816 Spondylosis without myelopathy or radiculopathy, lumbar region (principal); M53.3 Sacrococcygeal disorders, not elsewhere classified; G89.29 Other chronic pain; F32.A Depression, unspecified; M72.2 Plantar fascial fibromatosis; M79.7 Fibromyalgia; Z79.891 Long term (current) use of opiate analgesic; Z79.899 Other long term (current) drug therapy; Z98.84 Bariatric surgery status; Z88.8 Allergy status to other drugs, medicaments and biological substances ==

== ENCOUNTER → 2024-02-11 | Outpatient (CLI) | payer OTHER ==
[~2024-02-11] MED LIST changes: +FLUO-290 PO; -FLUO10CA18 PO
== END ==
LOC: M PAIN 17:30
PROVIDERS: ATTEND Nurse Practitioner Family
DX: M47.816 Spondylosis without myelopathy or radiculopathy, lumbar region (principal); Z79.891 Long term (current) use of opiate analgesic; M51.16 Intervertebral disc disorders with radiculopathy, lumbar region; G89.29 Other chronic pain; F32.A Depression, unspecified; M72.2 Plantar fascial fibromatosis; M79.7 Fibromyalgia; Z79.899 Other long term (current) drug therapy; Z88.8 Allergy status to other drugs, medicaments and biological substances

== ENCOUNTER 2024-04-07 16:17 | Inpatient (IN) | payer OTHER ==
[~2024-04-07] VITALS: Ht 154.9 cm; Wt 85.1 kg
[2024-04-07 19:52] LABS: BASO # 0.1 10^3/uL (0.0-0.2); BASO % 0.4 % (0.0-1.0); EOS % 0.2 % (0.0-3.0); HEMOGLOBIN 11.3 g/dl (12.0-15.5); LYMPH # 2.4 10^3/uL (1.5-5.0); LYMPH % 9.1 % (24.0-44.0); MEAN CORPUSCULAR HGB CONC 29.7 g/dl (32.0-36.5); MEAN CORPUSCULAR VOLUME 80.9 fl (80.0-96.0); MONO # 1.6 10^3/uL (0.0-0.8); MONO % 6.3 % (2.0-8.0); NEUTROPHILS # 21.5 10^3/uL (1.5-8.5); NEUTROPHILS % 83.1 % (36.0-66.0); PLATELET COUNT, AUTOMATED 349 10^3/uL (150-450); WHITE BLOOD COUNT 25.8 10^3/uL (4.0-10.0)
[2024-04-07 20:12] LABS: LIPASE 24 U/L (12-53)
[2024-04-07 20:15] LABS: ALBUMIN 3.5 G/DL (3.2-5.2); ALKALINE PHOSPHATASE 195 U/L (46-116); ALT/SGPT 40 U/L (7.0-40); AST/SGOT 29 U/L (<34); BILIRUBIN,DIRECT 0.2 MG/DL (<0.4); BILIRUBIN,TOTAL 0.6 MG/DL (0.3-1.2); BLOOD UREA NITROGEN 15 MG/DL (9-23); CALCIUM LEVEL 9.3 MG/DL (8.5-10.1); CARBON DIOXIDE LEVEL 24 MMOL/L (20-31); CHLORIDE LEVEL 102 MMOL/L (98-107); CREATININE FOR GFR 0.99 MG/DL (0.55-1.30); GLOMERULAR FILTRATION RATE > 60.0 (>51); GLUCOSE, FASTING 114 MG/DL (60-100); SODIUM LEVEL 136 MMOL/L (136-145); TOTAL PROTEIN 6.8 G/DL (5.7-8.2)
[2024-04-07] MEDS ORDERED: KETOROLAC 30 MG/ML 1ML VIAL IV ONE (22:05)
[2024-04-07] MEDS ORDERED: ISOVUE-370 76% 100ML VIAL As Ordered ONE (22:10)
[2024-04-07] MEDS: NS 1,000 ML IV SCH (22:23)
[2024-04-07] MEDS: MORPHINE 4 MG/ML 1ML VIAL IV ONE (22:26)
[2024-04-07] MEDS: ONDANSETRON 4MG 2ML VIAL IV ONE (22:26)
[2024-04-07] MEDS: cefTRIAXone SOD 2 GM in D5W MINI-BAG PLUS 50 ML IV ONE (23:33)
[2024-04-07] MEDS ORDERED: MOM 30ML SUSPENSION UDC PO PRN (23:55)
[2024-04-08] MEDS: NS 1,000 ML IV SCH (00:29)
[2024-04-08] MEDS ORDERED: MORP15TA2 PO (01:56)
[2024-04-08] MEDS ORDERED: TIZA6CAP3 PO (01:56)
[2024-04-08] MEDS ORDERED: ALBU8.5H INH (01:56)
[2024-04-08] MEDS ORDERED: GABA-284 PO (01:56)
[2024-04-08] MEDS ORDERED: ACET650T61 PO (01:56)
[2024-04-08] MEDS ORDERED: CETI-14 PO (01:56)
[2024-04-08] MEDS ORDERED: HOME MED LIST COMPLETE! XX SCH (02:00)
[2024-04-08] MEDS: MORPHINE 2 MG/ML 1ML VIAL IV PRN (03:07)
[2024-04-08] MEDS ORDERED: tiZANidine 4 MG TAB PO PRN (05:45)
[2024-04-08] MEDS ORDERED: ALBUTEROL 90 MCG/ACT 8GM HFA INHALER INH PRN ×2 (05:45→05:55)
[2024-04-08 07:00] LABS: HEMATOCRIT 31.8 % (36.0-47.0); HEMOGLOBIN 9.7 g/dl (12.0-15.5); MEAN CORPUSCULAR HEMOGLOBIN 24.3 pg (27.0-33.0); MEAN CORPUSCULAR HGB CONC 30.5 g/dl (32.0-36.5); MEAN CORPUSCULAR VOLUME 79.7 fl (80.0-96.0); PLATELET COUNT, AUTOMATED 274 10^3/uL (150-450); RED BLOOD COUNT 3.99 10^6/uL (4.00-5.40); WHITE BLOOD COUNT 19.7 10^3/uL (4.0-10.0)
[2024-04-08 07:54] LABS: ALBUMIN 2.9 G/DL (3.2-5.2); BILIRUBIN,TOTAL 0.4 MG/DL (0.3-1.2); CALCIUM LEVEL 8.6 MG/DL (8.5-10.1); CREATININE FOR GFR 1.01 MG/DL (0.55-1.30); GLOMERULAR FILTRATION RATE 59.9 (>51); POTASSIUM SERUM 3.8 MMOL/L (3.5-5.1); TOTAL PROTEIN 5.7 G/DL (5.7-8.2)
[2024-04-08] MEDS: GABAPENTIN 400MG CAP PO SCH ×2 (07:59→20:09)
[2024-04-08] MEDS: CETIRIZINE (ZyrTEC) 10 MG TAB PO SCH (07:59)
[2024-04-08] MEDS: ENOXAPARIN 40MG/0.4ML SYRINGE (J1650 PER 10MG) SC SCH (08:00)
[2024-04-08] MEDS ORDERED: METAL LOCK LOOP XX ONE (08:41)
[2024-04-08] MEDS ORDERED: GABAPENTIN 400MG CAP PO SCH ×2 (09:00→21:00)
[2024-04-08] MEDS ORDERED: CETIRIZINE (ZyrTEC) 10 MG TAB PO SCH (09:00)
[2024-04-08 10:53] LABS: C REACTIVE PROTEIN QUANTITATIV 25.2 MG/DL (<1.0)
[2024-04-08 11:01] LABS: PROCALCITONIN 0.85 ng/ml
[2024-04-08] MEDS: MORPHINE 4 MG/ML 1ML VIAL IV PRN (14:00)
[2024-04-08] MEDS: ACETAMINOPHEN TAB 650MG DOSE (2X325MG) PO PRN (14:01)
[2024-04-08 18:00] VITALS: BP 106/84; TEMP 98; O2SAT 98
[2024-04-08 19:12] VITALS: BP 110/83; TEMP 99.1; O2SAT 93
[2024-04-08] MEDS: tiZANidine 4 MG TAB PO PRN (20:09)
[2024-04-08] MEDS: DULoxetine 30MG CAPSULE (CYMBALTA) PO SCH (20:09)
[2024-04-08] MEDS: cefTRIAXone SOD 1 GM in D5W MINI-BAG PLUS 50 ML IV SCH (20:10)
[2024-04-08] MEDS ORDERED: DULoxetine 30MG CAPSULE (CYMBALTA) PO SCH (21:00)
[2024-04-09] VITALS (12 sets, daily range): BP systolic 79–132; BP diastolic 40–77; TEMP 96.7–98.6; O2SAT 90–99
[2024-04-09] MEDS: NS 1,000 ML IV ONE (01:20)
[2024-04-09 04:30] LABS: BASO # 0.1 10^3/uL (0.0-0.2); BASO % 0.5 % (0.0-1.0); EOS # 0.2 10^3/uL (0.0-0.5); EOS % 1.5 % (0.0-3.0); HEMATOCRIT 27.8 % (36.0-47.0); HEMOGLOBIN 8.3 g/dl (12.0-15.5); LYMPH # 1.6 10^3/uL (1.5-5.0); LYMPH % 15.6 % (24.0-44.0); MEAN CORPUSCULAR HEMOGLOBIN 24.6 pg (27.0-33.0); MEAN CORPUSCULAR HGB CONC 29.9 g/dl (32.0-36.5); MEAN CORPUSCULAR VOLUME 82.2 fl (80.0-96.0); MONO % 9.7 % (2.0-8.0); NEUTROPHILS # 7.6 10^3/uL (1.5-8.5); NEUTROPHILS % 72.1 % (36.0-66.0); PLATELET COUNT, AUTOMATED 224 10^3/uL (150-450); RED BLOOD COUNT 3.38 10^6/uL (4.00-5.40); WHITE BLOOD COUNT 10.5 10^3/uL (4.0-10.0)
[2024-04-09 04:37] LABS: CALCIUM LEVEL 8.1 MG/DL (8.5-10.1); CREATININE FOR GFR 1.15 MG/DL (0.55-1.30); GLOMERULAR FILTRATION RATE 51.6 (>51); POTASSIUM SERUM 4.1 MMOL/L (3.5-5.1)
[2024-04-09 07:26] LABS: C REACTIVE PROTEIN QUANTITATIV 25.8 MG/DL (<1.0)
[2024-04-09 07:40] LABS: PROCALCITONIN 0.91 ng/ml
[2024-04-09] MEDS: MIRALAX *UNIT DOSE* 17GM PACKET PO PRN (08:21)
[2024-04-09] MEDS: SENNA 8.6 MG TAB (SENOKOT) PO PRN (08:21)
[2024-04-09] MEDS: SYMBICORT 80/4.5MCG INHALER 6GM INH SCH (11:21)
[2024-04-09] MEDS: PROMETHAZINE 25MG/ML 1ML VIAL IV PRN (11:38)
[2024-04-09] MEDS: BISACODYL 10MG SUPP PR ONE (14:56)
[2024-04-10] MEDS: tiZANidine 4 MG TAB PO PRN (00:10)
[2024-04-10 04:00] VITALS: BP 118/64; TEMP 98; O2SAT 98
[2024-04-10 06:21] LABS: BASO # 0.1 10^3/uL (0.0-0.2); BASO % 0.6 % (0.0-1.0); EOS # 0.2 10^3/uL (0.0-0.5); EOS % 2.7 % (0.0-3.0); HEMATOCRIT 27.1 % (36.0-47.0); HEMOGLOBIN 8.2 g/dl (12.0-15.5); LYMPH % 24.7 % (24.0-44.0); MEAN CORPUSCULAR HEMOGLOBIN 24.3 pg (27.0-33.0); MEAN CORPUSCULAR HGB CONC 30.3 g/dl (32.0-36.5); MEAN CORPUSCULAR VOLUME 80.2 fl (80.0-96.0); MONO # 1.2 10^3/uL (0.0-0.8); MONO % 14.8 % (2.0-8.0); NEUTROPHILS # 4.7 10^3/uL (1.5-8.5); NEUTROPHILS % 56.7 % (36.0-66.0); PLATELET COUNT, AUTOMATED 237 10^3/uL (150-450); RED BLOOD COUNT 3.38 10^6/uL (4.00-5.40); WHITE BLOOD COUNT 8.2 10^3/uL (4.0-10.0)
[2024-04-10 06:44] LABS: BLOOD UREA NITROGEN 12 MG/DL (9-23); CALCIUM LEVEL 8.2 MG/DL (8.5-10.1); CARBON DIOXIDE LEVEL 26 MMOL/L (20-31); CHLORIDE LEVEL 107 MMOL/L (98-107); CREATININE FOR GFR 0.95 MG/DL (0.55-1.30); GLOMERULAR FILTRATION RATE > 60.0 (>51); GLUCOSE, FASTING 100 MG/DL (60-100); POTASSIUM SERUM 4.3 MMOL/L (3.5-5.1); SODIUM LEVEL 139 MMOL/L (136-145)
[2024-04-10 06:51] LABS: PROCALCITONIN 0.57 ng/ml
[2024-04-10] MEDS ORDERED: CEFD300CAP PO (09:51)
== END 2024-04-10 11:33 | disposition home or self-care (01) | DRG 872 ==
LOC: M ED 16:17 → M ED INP 23:53 → M PCU 04-08 17:20 → M MSPAV 04-09 16:48
PROVIDERS: ADMIT Family Medicine; ATTEND Internal Medicine
DX: A41.9 Sepsis, unspecified organism (principal); N13.6 Pyonephrosis; K21.9 Gastro-esophageal reflux disease without esophagitis; M54.9 Dorsalgia, unspecified; J45.909 Unspecified asthma, uncomplicated; G89.29 Other chronic pain; Z98.84 Bariatric surgery status; Z90.49 Acquired absence of other specified parts of digestive tract; Z79.899 Other long term (current) drug therapy; Z88.8 Allergy status to other drugs, medicaments and biological substances

== ENCOUNTER → 2024-05-21 | Outpatient (REF) ==
[~2024-05-21] MED LIST changes: +ACET650T61 PO; +ALBU8.5H INH; +CEFD300CAP PO; +CETI-14 PO; +MORP15TA2 PO; +TIZA6CAP3 PO
== END ==
LOC: M PLAIMG 14:24
PROVIDERS: ATTEND Internal Medicine
DX: M25.50 Pain in unspecified joint (principal)

== ENCOUNTER → 2024-06-04 | Outpatient (CLI) | payer OTHER ==
[~2024-06-04] MED LIST changes: +HYDR-3719 PO; +HYDR-643 PO; +METH1CAP3 PO; +METH1CAP5 PO; +POTA10808 PO; +TIZA2TA PO
[2024-06-04 18:08] LABS: HEMOGLOBIN 10.9 g/dl (12.0-15.5); MEAN CORPUSCULAR HEMOGLOBIN 23.5 pg (27.0-33.0); MEAN CORPUSCULAR HGB CONC 29.5 g/dl (32.0-36.5); MEAN CORPUSCULAR VOLUME 79.9 fl (80.0-96.0); PLATELET COUNT, AUTOMATED 501 10^3/uL (150-450); RED BLOOD COUNT 4.63 10^6/uL (4.00-5.40); WHITE BLOOD COUNT 9.5 10^3/uL (4.0-10.0)
[2024-06-04 18:20] LABS: BILIRUBIN,TOTAL 0.2 MG/DL (0.3-1.2); CALCIUM LEVEL 10.3 MG/DL (8.5-10.1); CREATININE FOR GFR 1.03 MG/DL (0.55-1.30); GLOMERULAR FILTRATION RATE 58.6 (>51); POTASSIUM SERUM 5.2 MMOL/L (3.5-5.1); TOTAL PROTEIN 7.3 G/DL (5.7-8.2)
== END ==
LOC: M PLALAB 15:40
PROVIDERS: ATTEND Urology
DX: N20.0 Calculus of kidney (principal)

== ENCOUNTER 2024-06-11 12:07 | Day surgery (SDC) | payer OTHER ==
[~2024-06-11] VITALS: Ht 157.5 cm; Wt 81.6 kg
[2024-06-11] MEDS ORDERED: LR 1,000 ML IV SCH (12:25)
[2024-06-11] MEDS ORDERED: propofoL 200 MG/20 ML VIAL As Ordered ONE (13:59)
[2024-06-11] MEDS ORDERED: ONDANSETRON 4MG 2ML VIAL As Ordered ONE (13:59)
[2024-06-11] MEDS ORDERED: LIDOCAINE 2% 100MG/5ML SDV (FOR ANES.) As Ordered ONE (13:59)
[2024-06-11] MEDS ORDERED: MIDAZOLAM INJ 2MG/2ML VIAL As Ordered ONE (13:59)
[2024-06-11] MEDS ORDERED: fentaNYL 100 MCG/2 ML INJECTION As Ordered ONE (13:59)
[2024-06-11] MEDS: ceFAZolin SOD 2 GM in IV 1 EA IV ONE (14:09)
[2024-06-11] MEDS: ISOVUE-300 61% 100ML VIAL As Ordered ONE (14:37)
[2024-06-11] MEDS ORDERED: MEPERIDINE 25 MG/ML 1ML VIAL As Ordered ONE (15:30)
[2024-06-11] MEDS: MEPERIDINE 25 MG/ML 1ML VIAL IV PRN (15:43)
[2024-06-11] MEDS: oxyCODONE 5MG TAB PO PRN (15:48)
[2024-06-11] MEDS: ONDANSETRON 4MG 2ML VIAL IV PRN (15:48)
[2024-06-11] MEDS: fentaNYL 100 MCG/2 ML INJECTION IV PRN (16:13)
[2024-06-11 17:00] VITALS: BP 136/65; TEMP 99.3; O2SAT 96
== END 2024-06-11 17:05 | disposition home or self-care (01) ==
LOC: M SDC 12:07
PROVIDERS: ATTEND Urology
DX: N20.0 Calculus of kidney (principal); Z88.8 Allergy status to other drugs, medicaments and biological substances; Z79.899 Other long term (current) drug therapy
CPT/HCPCS: 52356; 76000; 82365; C1769; C1894; C2617; J0690; J1100; J2175; J2250; J2405; J3010; Q9967

== ENCOUNTER → 2024-07-14 | Outpatient (CLI) | payer OTHER | LOC: M PAIN 14:00 | PROVIDERS: ATTEND Nurse Practitioner Family | DX: M51.16 Intervertebral disc disorders with radiculopathy, lumbar region (principal); G89.29 Other chronic pain; F32.A Depression, unspecified; M72.2 Plantar fascial fibromatosis; M79.7 Fibromyalgia; Z79.891 Long term (current) use of opiate analgesic; Z79.899 Other long term (current) drug therapy; Z88.8 Allergy status to other drugs, medicaments and biological substances ==

== ENCOUNTER → 2024-08-25 | Outpatient (CLI) | payer OTHER ==
[~2024-08-25] MED LIST changes: -POTA10808 PO; +POTA10809 PO
== END ==
LOC: M PAIN 15:00
PROVIDERS: ATTEND Nurse Practitioner Family
DX: M51.16 Intervertebral disc disorders with radiculopathy, lumbar region (principal); G89.29 Other chronic pain; Z79.899 Other long term (current) drug therapy; Z98.84 Bariatric surgery status; Z88.8 Allergy status to other drugs, medicaments and biological substances

== ENCOUNTER → 2024-09-25 | Outpatient (CLI) | payer OTHER | LOC: M PAIN 09:30 | PROVIDERS: ATTEND Nurse Practitioner Family | DX: M51.16 Intervertebral disc disorders with radiculopathy, lumbar region (principal); Z79.891 Long term (current) use of opiate analgesic; G89.29 Other chronic pain; M72.2 Plantar fascial fibromatosis; M79.7 Fibromyalgia; Z79.899 Other long term (current) drug therapy; Z88.8 Allergy status to other drugs, medicaments and biological substances ==

== ENCOUNTER → 2024-11-30 | Outpatient (CLI) | payer OTHER | LOC: M PLAIMG 15:57 | PROVIDERS: ATTEND Urology | DX: Z96.0 Presence of urogenital implants (principal) ==

== ENCOUNTER 2025-04-25 00:24 | Inpatient (IN) | payer OTHER ==
[~2025-04-25] VITALS: Ht 154.9 cm; Wt 87.6 kg
[2025-04-25] VITALS (10 sets, daily range): BP systolic 82–118; BP diastolic 51–66; TEMP 97.4–98.8; O2SAT 94–97
[~2025-04-25 00:24] MED LIST changes: -PREG50CA PO; +PREG50CA87 PO
[2025-04-25 01:20] LABS: KETONE, URINE MANUAL REFLEX OBSCURED mg/dL (NEGATIVE); NITRITE, URINE MANUAL RFX OBSCURED (NEGATIVE); PROTEIN, URINE MANUAL REFLEX OBSCURED mg/dL (NEGATIVE); SP GRAVITY,URINE MANUAL REFLEX 1.025 (1.002-1.035); UROBILINOGEN, UA MANUAL REFLEX OBSCURED mg/dl (NORMAL)
[2025-04-25 01:31] LABS: HYALINE CAST, URINE RFX NONE SEEN /lpf (0-1); MICROSCOPIC EXAM RFX PERFORMED; MUCUS, URINE REFLEX MOD AMOUNT (NEGATIVE); SQUAMOUS EPITHELIAL URINE RFX LARGE AMOUNT /hpf (SMALL AMT); WBC, URINE MAN RFX TNTC /hpf (0-3)
[2025-04-25] MEDS: ACETAMINOPHEN 325 MG TAB PO ONE (07:47)
[2025-04-25] MEDS: CETIRIZINE 10 MG TAB PO SCH (09:00)
[2025-04-25 09:09] LABS: BASO # 0.1 10^3/uL (0.0-0.2); BASO % 0.3 % (0.0-1.0); EOS # 0.0 10^3/uL (0.0-0.5); EOS % 0.0 % (0.0-3.0); LYMPH # 1.2 10^3/uL (1.5-5.0); LYMPH % 6.0 % (24.0-44.0); MONO # 0.8 10^3/uL (0.0-0.8); MONO % 4.2 % (2.0-8.0); NEUTROPHILS # 17.9 10^3/uL (1.5-8.5); NEUTROPHILS % 88.4 % (36.0-66.0); PLATELET COUNT, AUTOMATED 362 10^3/uL (150-450)
[2025-04-25 09:23] LABS: CALCIUM LEVEL 8.5 MG/DL (8.5-10.1); CARBON DIOXIDE LEVEL 27.0 MMOL/L (20-31); CHLORIDE LEVEL 101.0 MMOL/L (98-107); CREATININE FOR GFR 0.94 MG/DL (0.55-1.30); GLOMERULAR FILTRATION RATE 69.9 (>51); POTASSIUM SERUM 3.8 MMOL/L (3.5-5.1); SODIUM LEVEL 139.0 MMOL/L (136-145)
[2025-04-25] MEDS: NS (Normal Saline) 0.9% 1,000 ML IV ONE ×4 (09:40→16:27)
[2025-04-25] MEDS: KETOROLAC 30 MG/ML 1 ML VIAL IV ONE (09:40)
[2025-04-25] MEDS: cefTRIAXone SOD 1 GM in DEXTROSE 5% (D5W) ADV/MINI-BAG 50 ML IV ONE ×2 (09:40→15:44)
[2025-04-25] MEDS ORDERED: NALOXONE INJ 0.4 MG/1 ML VIAL IV PRN (10:50)
[2025-04-25] MEDS ORDERED: AMPH1CAP5 PO (11:02)
[2025-04-25] MEDS ORDERED: DEXT10TA2 PO (11:02)
[2025-04-25] MEDS ORDERED: HOME MED LIST COMPLETE! XX SCH (11:05)
[2025-04-25] MEDS ORDERED: MIDAZOLAM INJ 2 MG/2 ML VIAL As Ordered ONE (12:09)
[2025-04-25] MEDS ORDERED: ACETAMINOPHEN 1000MG/100ML IV BAG As Ordered ONE (12:10)
[2025-04-25] MEDS ORDERED: KETOROLAC 30 MG/ML 1 ML VIAL As Ordered ONE (12:10)
[2025-04-25] MEDS ORDERED: ONDANSETRON 4MG 2ML VIAL As Ordered ONE (12:10)
[2025-04-25] MEDS ORDERED: dexAMETHasone 4 MG/ML 1 ML VIAL As Ordered ONE (12:10)
[2025-04-25] MEDS ORDERED: LIDOCAINE 2% 100 MG/5 ML SDV (FOR ANES.) As Ordered ONE (12:10)
[2025-04-25] MEDS: ISOVUE-300 61% 100 ML VIAL As Ordered ONE (12:59)
[2025-04-25] MEDS: LIDOCAINE 2% 5 ML JELLY UROJET As Ordered ONE (13:01)
[2025-04-25] MEDS: ALBUTEROL SULFATE 2.5 MG/0.5 ML INH CONCENTRATE NEB SOLN INH ONE (13:40)
[2025-04-25] MEDS: LR 1,000 ML IV SCH (13:40)
[2025-04-25] MEDS: HYDROMORPHONE HCL 0.5 MG/0.5 ML SYRINGE IV PRN (13:53)
[2025-04-25] MEDS: ONDANSETRON 4MG 2ML VIAL IV PRN (13:53)
[2025-04-25] MEDS ORDERED: ALBUTEROL 90 MCG/ACT 8 GM HFA INHALER INH PRN (14:50)
[2025-04-25] MEDS: MIDODRINE 5 MG TAB PO ONE (15:44)
[2025-04-25] MEDS: NS (Normal Saline) 0.9% 1,000 ML IV SCH (16:27)
[2025-04-25] MEDS: GABAPENTIN 400 MG CAP PO SCH (21:01)
[2025-04-25] MEDS: NIX CREME RINSE 1% 60 ML KIT TOP ONE (21:02)
[2025-04-25] MEDS: PERCOCET 5MG/325MG TAB PO PRN (21:06)
[2025-04-25] MEDS: PERMETHRIN 5% CREAM 60 GM TOP ONE (21:07)
[2025-04-25] MEDS: MORPHINE 4 MG/ML 1 ML VIAL IV PRN (22:55)
[2025-04-26] VITALS (17 sets, daily range): BP systolic 80–141; BP diastolic 48–71; TEMP 97.5–100.7; O2SAT 94–99
[2025-04-26] MEDS: NS (Normal Saline) 0.9% 1,000 ML IV ONE (03:55)
[2025-04-26] MEDS: NS 500 ML IV ONE (05:19)
[2025-04-26] MEDS ORDERED: VANCOMYCIN HCL 1,000 MG, VIAL MATE ADAPTER 1 EACH in NS 250 ML IV SCH (06:30)
[2025-04-26] MEDS: LR 1,000 ML IV ONE (06:54)
[2025-04-26 07:34] LABS: BASO # 0.1 10^3/uL (0.0-0.2); BASO % 0.3 % (0.0-1.0); EOS # 0.0 10^3/uL (0.0-0.5); EOS % 0.2 % (0.0-3.0); LYMPH # 1.9 10^3/uL (1.5-5.0); LYMPH % 11.5 % (24.0-44.0); MONO # 1.1 10^3/uL (0.0-0.8); MONO % 6.9 % (2.0-8.0); NEUTROPHILS # 12.8 10^3/uL (1.5-8.5); NEUTROPHILS % 80.0 % (36.0-66.0)
[2025-04-26 07:47] LABS: PLATELET COUNT, AUTOMATED 241 10^3/uL (150-450)
[2025-04-26 07:52] LABS: ERYTHROCYTE SEDIMENTATION RATE 15 mm/hr (0-30)
[2025-04-26 07:53] LABS: CALCIUM LEVEL 7.6 MG/DL (8.5-10.1); CARBON DIOXIDE LEVEL 23.0 MMOL/L (20-31); CHLORIDE LEVEL 108.0 MMOL/L (98-107); CREATININE FOR GFR 0.85 MG/DL (0.55-1.30); GLOMERULAR FILTRATION RATE 78.9 (>51); POTASSIUM SERUM 4.3 MMOL/L (3.5-5.1); SODIUM LEVEL 142.0 MMOL/L (136-145)
[2025-04-26 07:56] LABS: T UPTAKE 45.0 % (22.5-37.0); THYROXINE (T4) 5.5 UG/DL (4.5-10.9)
[2025-04-26] MEDS: **NOTE PATIENT COMMENT** MISC XX ONE (08:00)
[2025-04-26 08:12] LABS: C REACTIVE PROTEIN QUANTITATIV 17.25 MG/DL (<1.0)
[2025-04-26] MEDS ORDERED: cefTRIAXone SOD 1 GM in DEXTROSE 5% (D5W) ADV/MINI-BAG 50 ML IV SCH ×2 (09:00→15:00)
[2025-04-26] MEDS: PIPERACILLIN/TAZOBACTAM SOD 4.5 GM in DEXTROSE 5% (D5W) ADV/MINI-BAG 50 ML IV SCH (10:00)
[2025-04-26] MEDS: VANCOMYCIN HCL 1,500 MG, VIAL MATE ADAPTER 1 EACH in NS 500 ML IV ONE (10:28)
[2025-04-26] MEDS ORDERED: PERCOCET 5MG/325MG TAB PO PRN ×2 (20:00→20:30)
[2025-04-26] MEDS ORDERED: VANCOMYCIN HCL 750 MG, VIAL MATE ADAPTER 1 EACH in NS 250 ML IV SCH (20:00)
[2025-04-26] MEDS: ACETAMINOPHEN 325 MG TAB PO PRN (20:50)
[2025-04-26] MEDS: VANCOMYCIN HCL 1,000 MG, VIAL MATE ADAPTER 1 EACH in NS 250 ML IV SCH (21:59)
[2025-04-27] VITALS (9 sets, daily range): BP systolic 116–159; BP diastolic 62–74; TEMP 96.8–100.3; O2SAT 88–97
[2025-04-27 05:11] LABS: BASO # 0.1 10^3/uL (0.0-0.2); BASO % 0.5 % (0.0-1.0); EOS # 0.2 10^3/uL (0.0-0.5); EOS % 1.6 % (0.0-3.0); LYMPH # 1.4 10^3/uL (1.5-5.0); LYMPH % 13.4 % (24.0-44.0); MONO # 0.7 10^3/uL (0.0-0.8); MONO % 6.5 % (2.0-8.0); NEUTROPHILS # 7.8 10^3/uL (1.5-8.5); NEUTROPHILS % 77.5 % (36.0-66.0); PLATELET COUNT, AUTOMATED 241 10^3/uL (150-450)
[2025-04-27 05:32] LABS: CALCIUM LEVEL 8.5 MG/DL (8.5-10.1); CARBON DIOXIDE LEVEL 24.0 MMOL/L (20-31); CHLORIDE LEVEL 108.0 MMOL/L (98-107); CREATININE FOR GFR 0.91 MG/DL (0.55-1.30); GLOMERULAR FILTRATION RATE 72.7 (>51); POTASSIUM SERUM 4.0 MMOL/L (3.5-5.1); SODIUM LEVEL 142.0 MMOL/L (136-145)
[2025-04-27] MEDS: cefTRIAXone SOD 1 GM in DEXTROSE 5% (D5W) ADV/MINI-BAG 50 ML IV SCH (10:00)
[2025-04-27] MEDS: amLODIPine 10 MG TAB PO ONE (17:47)
[2025-04-28 04:28] VITALS: BP 144/66; TEMP 99.2; O2SAT 96
[2025-04-28 05:15] LABS: BASO # 0.1 10^3/uL (0.0-0.2); BASO % 0.6 % (0.0-1.0); EOS # 0.2 10^3/uL (0.0-0.5); EOS % 2.4 % (0.0-3.0); LYMPH # 2.3 10^3/uL (1.5-5.0); LYMPH % 26.5 % (24.0-44.0); MONO # 0.8 10^3/uL (0.0-0.8); MONO % 9.2 % (2.0-8.0); NEUTROPHILS # 5.1 10^3/uL (1.5-8.5); NEUTROPHILS % 60.6 % (36.0-66.0); PLATELET COUNT, AUTOMATED 240 10^3/uL (150-450)
[2025-04-28 05:30] LABS: CALCIUM LEVEL 8.4 MG/DL (8.5-10.1); CARBON DIOXIDE LEVEL 24.0 MMOL/L (20-31); CHLORIDE LEVEL 107.0 MMOL/L (98-107); CREATININE FOR GFR 0.83 MG/DL (0.55-1.30); GLOMERULAR FILTRATION RATE 81.2 (>51); POTASSIUM SERUM 4.1 MMOL/L (3.5-5.1); SODIUM LEVEL 142.0 MMOL/L (136-145)
[2025-04-28 08:00] VITALS: BP 141/65; TEMP 99; O2SAT 98
[2025-04-28] MEDS: CALCIUM GLUCONATE 1,000 MG in DEXTROSE 5% (D5W) MINI-BAG PLU 100 ML IV ONE (08:33)
[2025-04-28] MEDS: CEFPODOXIME PROXETIL 200 MG TABLET PO SCH (10:23)
[2025-04-28] MEDS ORDERED: OXYB5TAB14 PO (13:10)
[2025-04-28] MEDS ORDERED: CEFP200T PO (13:10)
[2025-04-28] MEDS ORDERED: HYDR-4517 PO (13:15)
[2025-04-30 01:44] LABS: BORRELIA SPECIES DNA NOT DETECTED (NOT DETECT)
== END 2025-04-28 16:10 | disposition home or self-care (01) | DRG 720 ==
LOC: M ED 00:24 → M ED INP 00:25 → M MS4PR 14:15 → OBSVTOIN 14:49 → M ICU 04-26 07:35
PROVIDERS: ADMIT General Practice; ATTEND General Practice
PROC: 0T768DZ Dilation of Right Ureter with Intraluminal Device, Via Natural or Artificial Opening Endoscopic (ICD-10-PCS; principal; 2025-04-25 10:42)
DX: A41.59 Other Gram-negative sepsis (principal); N32.89 Other specified disorders of bladder; N13.6 Pyonephrosis; B96.20 Unspecified Escherichia coli [E. coli] as the cause of diseases classified elsewhere; K21.9 Gastro-esophageal reflux disease without esophagitis; B86 Scabies; R65.20 Severe sepsis without septic shock; Z98.84 Bariatric surgery status; Z90.49 Acquired absence of other specified parts of digestive tract; Z88.8 Allergy status to other drugs, medicaments and biological substances; Z79.899 Other long term (current) drug therapy; Z87.440 Personal history of urinary (tract) infections

== ENCOUNTER → 2025-05-17 | Outpatient (REF) | payer OTHER ==
[~2025-05-17] MED LIST changes: +AMPH1CAP5 PO; +CEFP200T PO; +DEXT10TA2 PO; +HYDR-4517 PO
== END ==
LOC: M LAB REF 14:20
PROVIDERS: ATTEND Internal Medicine
DX: N39.0 Urinary tract infection, site not specified (principal)

== ENCOUNTER → 2025-05-17 | Outpatient (CLI) | payer OTHER | LOC: M PLAIMG 13:52 | PROVIDERS: ATTEND Urology | DX: Z01.818 Encounter for other preprocedural examination (principal); N20.0 Calculus of kidney; N39.0 Urinary tract infection, site not specified ==

== ENCOUNTER → 2025-05-27 | Outpatient (REF) | payer OTHER ==
[2025-05-27 19:33] LABS: APPEARANCE, URINE HAZY (CLEAR); BACTERIA, URINE AUTO NEGATIVE (NEGATIVE); BILIRUBIN, URINE AUTO NEGATIVE (NEGATIVE); BLOOD, URINE BLOOD 3+ (NEGATIVE); CALCIUM OXALATE CRYSTALS LARGE; GLUCOSE, URINE (UA) AUTO NEGATIVE (NEGATIVE); KETONE, URINE AUTO TRACE mg/dL (NEGATIVE); LEUKOCYTE ESTERASE, URINE AUTO 2+ (NEGATIVE); NITRITE, URINE AUTO POSITIVE (NEGATIVE); PROTEIN, URINE AUTO 2+ mg/dL (NEGATIVE); RBC, URINE AUTO TNTC /HPF (0-3); SPECIFIC GRAVITY URINE AUTO 1.021 (1.002-1.035); SQUAMOUS EPITHELIAL CELL UR AU 1 /HPF (0-6); UROBILINOGEN, URINE AUTO 4.0 mg/dL (0.0-2.0); WBC, URINE AUTO 77 /HPF (0-3); YEAST LIKE CELL URINE AUTO LARGE
== END ==
LOC: M SMT 17:51
PROVIDERS: ATTEND Urology
DX: N39.0 Urinary tract infection, site not specified (principal)

== ENCOUNTER 2025-06-04 11:49 | Day surgery (SDC) | payer OTHER ==
[~2025-06-04] VITALS: Ht 154.9 cm; Wt 77.2 kg
[~2025-06-04 11:49] MED LIST changes: +ACETAMINOPHEN 1000MG/100ML IV BAG As Ordered ONE; +LIDOCAINE 2% 100 MG/5 ML SDV (FOR ANES.) As Ordered ONE; +ONDANSETRON 4MG 2ML VIAL As Ordered ONE; +ceFAZolin SOD 2 GM IV ONCE IV ONE; +dexAMETHasone 4 MG/ML 1 ML VIAL As Ordered ONE
[2025-06-04] MEDS ORDERED: PYRI1TAB5 PO (12:36)
[2025-06-04] MEDS ORDERED: MIDAZOLAM INJ 2 MG/2 ML VIAL As Ordered ONE (12:42)
[2025-06-04] MEDS: ceFAZolin SOD 2 GM IV ONCE IV ONE (13:52)
[2025-06-04] MEDS: ISOVUE-300 61% 100 ML VIAL As Ordered ONE (14:23)
[2025-06-04] MEDS ORDERED: HYDROMORPHONE HCL 0.5 MG/0.5 ML SYRINGE IV PRN (14:35)
[2025-06-04] MEDS ORDERED: ONDANSETRON 4MG 2ML VIAL IV PRN (14:35)
[2025-06-04] MEDS ORDERED: OXYB5TAB14 PO (15:06)
[2025-06-04 15:59] VITALS: BP 123/56; TEMP 97.6; O2SAT 94
== END 2025-06-04 16:24 | disposition home or self-care (01) ==
LOC: M SDC 11:49
PROVIDERS: ATTEND Urology
DX: N13.2 Hydronephrosis with renal and ureteral calculous obstruction (principal); J45.20 Mild intermittent asthma, uncomplicated; M79.7 Fibromyalgia; F41.9 Anxiety disorder, unspecified; F32.A Depression, unspecified; Z79.899 Other long term (current) drug therapy; Z88.8 Allergy status to other drugs, medicaments and biological substances; Z98.84 Bariatric surgery status; Z90.49 Acquired absence of other specified parts of digestive tract; F90.2 Attention-deficit hyperactivity disorder, combined type
CPT/HCPCS: 52332; 76000; 82365; J0131; J0688; J1100; J2250; J2405; J3010; Q9967

== ENCOUNTER → 2025-07-23 | Outpatient (REF) | payer OTHER ==
[~2025-07-23] MED LIST changes: -ACETAMINOPHEN 1000MG/100ML IV BAG As Ordered ONE; -LIDOCAINE 2% 100 MG/5 ML SDV (FOR ANES.) As Ordered ONE; -ONDANSETRON 4MG 2ML VIAL As Ordered ONE; -ceFAZolin SOD 2 GM IV ONCE IV ONE; -dexAMETHasone 4 MG/ML 1 ML VIAL As Ordered ONE
== END ==
LOC: M LAB REF 12:33
PROVIDERS: ATTEND Physician Assistant Medical
DX: L65.9 Nonscarring hair loss, unspecified (principal); R21 Rash and other nonspecific skin eruption